=== PATIENT | female | born 1955 | race Caucasian/White ===

== ENCOUNTER 2022-07-28 13:55 | Outpatient (CLI) | payer MEDICARE, SELFPAY ==
[2022-07-28 17:29] LABS: Microalbumin Creatinine Ratio 10 mg/g (0-30); Microalbumin Urine 4 mg/dL
[2022-07-28 17:31] LABS: Albumin* 4.5 g/dL (3.3-5.0)
[2022-07-28 17:32] LABS: Chloride* 108 mmol/L (96-114); Potassium* 5.3 mmol/L (3.6-5.1); Sodium* 143 mmol/L (135-149)
[2022-07-28 17:34] LABS: Aspartate Amino Transferase* 29 U/L (12-35); Bilirubin Total* 0.9 mg/dL (0.1-1.5); Carbon Dioxide* 29 mmol/L (20-32); Cholesterol* 199 mg/dL (90-199); Creatinine* 0.6 mg/dL (0.5-1.5); Estimated Glomerular Filt Rate 98 ml/min; Total Protein* 6.9 g/dL (6.0-8.3)
[2022-07-28 17:35] LABS: Alanine Aminotransferase* 28 U/L (4-35); Alkaline Phosphatase* 81 U/L (40-150); Blood Urea Nitrogen* 14 mg/dL (7-30); Calcium* 9.9 mg/dL (8.4-10.6); Glucose* 99 mg/dL (60-115); HDL Cholesterol* 86 mg/dL (>=50); LDL Cholesterol Calculated 81 mg/dL (<100); Triglycerides* 160 mg/dL (40-149)
== END 2022-07-28 13:56 | disposition home or self-care (01) ==
LOC: NFLDREF 13:56
PROVIDERS: PCP Family Medicine; Visit Provider Family Medicine
DX: Z00.00 Encounter for general adult medical examination without abnormal findings (principal); Z01.818 Encounter for other preprocedural examination; E11.9 Type 2 diabetes mellitus without complications; I10 Essential (primary) hypertension; E78.5 Hyperlipidemia, unspecified; G89.29 Other chronic pain; F32.A Depression, unspecified
CPT/HCPCS: 80053; 80061; 82043; 82570

== ENCOUNTER 2022-08-20 12:54 | Outpatient (RCR) | payer MEDICARE, SELFPAY | END 2023-02-05 23:59 | disposition home or self-care (01) | PROVIDERS: PCP Family Medicine; Visit Provider Orthopaedic Surgery Sports Medicine | DX: M17.0 Bilateral primary osteoarthritis of knee (principal); Z51.89 Encounter for other specified aftercare | CPT/HCPCS: 97110; 97161 ==

== ENCOUNTER 2023-07-27 15:10 | Outpatient (CLI) | payer MEDICARE, SELFPAY ==
--- OUTSIDE RECORDS SUMMARY | 2023-07-30 11:05 | XMS_ITS | Clinical Summary ---
Author Name Unknown Organization [facility] Address [place], [place] [address] Care Team Providers Care Supervisor Wound Name Role Phone Lee Grover MD Primary Care Provider [phone] Allergies Active Allergy Reactions Criticality Noted Date Comments Morphine Rash 02/22/2016 Bupropion Hcl Anxiety 02/22/2016 Medications Medication Sig Dispensed Refills Start Date End Date Status atorvastatin (LIPITOR) 40 mg tablet Take 40 mg by mouth at bedtime. 0 Active lisinopril (PRINIVIL; ZESTRIL) 5 mg tablet Take 5 mg by mouth once daily. 0 Active metFORMIN (GLUCOPHAGE) 500 mg tablet Take 500 mg by mouth 2 times daily with meals. 0 Active metoprolol (LOPRESSOR) 50 mg tablet Take 50 mg by mouth 2 times daily. 0 Active acetaminophen (TYLENOL EXTRA STRGTH) 500 mg tablet Take 500 mg by mouth every 6 hours if needed for Pain. Max acetaminophen dose: 4000mg in 24 hrs. 0 Active apixaban (ELIQUIS) 5 mg tablet Take 5 mg by mouth 2 times daily. 0 Active amitriptyline (ELAVIL) 50 mg tablet Take 75 mg by mouth at bedtime. 0 Active venlafaxine (EFFEXOR XR) 150 mg Extended-Release capsule Take 150 mg by mouth once daily with a meal. 0 08/01/2022 Active oxyCODONE (ROXICODONE) 5 mg immediate release tablet Take 20 mg by mouth 4 times daily if needed for Pain. 0 Active gabapentin (NEURONTIN) 600 mg tablet Take 1,200 mg by mouth two times daily. 0 Active venlafaxine (EFFEXOR) 75 mg tablet Take 75 mg by mouth every morning. Take with the 150 mg for a total of 225 0 Active celecoxib (CeleBREX) 200 mg capsule Take 200 mg by mouth once daily. 0 Active Lactobacillus Acidophilus (Acidophilus) cap Take 1 Capsule by mouth once daily. 0 Active varenicline (Chantix) 1 mg tablet Take 1 mg by mouth two times daily with meals. 0 Active Active Problems Problem Noted Date Diagnosed Date Primary osteoarthritis of left knee 12/24/2022 Primary osteoarthritis of right knee 11/11/2022 Fracture of neck of right femur 09/10/2022 Postoperative fever 02/24/2016 Diabetes mellitus, type 2 02/22/2014 Hypertension 02/22/2014 Hyperlipidemia 02/22/2014 Chronic pain 02/22/2014 Brugada syndrome 02/22/2014 Lumbar spinal stenosis 02/22/2014 Depression 02/22/2014 Family History Medical History Relation Name Comments Alcoholism Father Heart Disease Father Other Father bleeding tende ncies per H&P Other Son aneurysm Relation Name Status Comments Father Son Social History Tobacco Use Types Packs/Day Years Used Date Smoking Tobacco: Former Cigarettes Q uit: 06/19/2012 Smokeless Tobacco: Never Tobacco Cessation:Counseling Given: Not Answered Alcohol Use Standard Drinks/Week Comments No 0 (1 standard drink = 0.6 oz pur e alcohol) Social Connections Answer Date Recorded Frequency of Communication with Friends and Fami ly Not on file 10/28/2022 Sex and Gender Information Value Date Recorded Sex Assigned at Not on file Gender Identity Not on file Sexual Orientation Not on file Obstetrics History Last Filed Vital Signs Vital Sign Reading Time Taken Comments Blood Pressure 95/56 12/26/2022 8:33 AM CDT Pulse 96 12/26/2022 8:25 AM CDT Temperature 37.3 ??C (99.1 ??F) 12/26/2022 8:25 AM CD T Respiratory Rate 18 12/26/2022 8:25 AM CDT Oxygen Saturation 95% 12/26/2022 8:25 AM CDT Inhaled Oxygen Concentration - - Weight 92.3 kg (203 lb 6.4 oz) 12/25/2022 1:45 P M CDT Height 177.8 cm (5' 10) 12/25/2022 1:45 PM CDT Body Mass Index 29.18 12/25/2022 1:45 PM CDT Plan of Treatment Health Maintenance Due Date Last Done Comments Pneumococcal series for age 65+ (1 of 2 - PCV) 1961 Tdap 1966 Depression screening for age 12+ 1967 BMI (ht and wt on same day) for age 18+ 1973 Hepatitis C screening for age 18-79 1973 Tetanus booster 1975 Colonoscopy through age 75 2000 Lipids for age 45-75 2000 Mammogram for age 45-75 2000 Zoster (shingles) series for age 50+ (1 of 2) 2005 DEXA/DXA scan for age 65+ 2020 Medicare Wellness for age 65+ 2020 COVID-19 vaccine series ( season) 2023 07/04/2021, 10/17/2020, 09/19/2020 Influenza for age 65+ 03/20/2023 Medical Devices Implanted Type Area [employer] Device Identifier Shelf Expiration Date Model / Serial / Lot [id number] 188bone 30cc Mtf Chips Canclls Pouch [[id number]] Implanted:Qty: 1 on 02/22/[address] [facility] Explanted:(Quant ity not on file) Spine Musculoskeletal Transplant 05/06/2016 [id number]# / [id number] / [id number] 141bone 15cc Mtf Chips Canclls Jar [[id number]] Implanted:Qty: 1 on 02/22/[address] [facility] Explanted:(Quant ity not on file) Spine Musculoskeletal Transplant 07/01/2015 809856# / [id number] / [id number] 098bone 60cc Mtf Crushed Canclls [[id number]] Implanted:Qty: 1 on 02/22/[address] [facility] Spine Musculoskeletal Transplant 06/26/2016 303679# / [id number] / [id number] 132bone 60cc Mtf Crushed Canclls [902326] Implanted:Qty: 1 on 02/22/[address] [facility] Explanted:at [facility] (Quantity not on file) Spine Musculoskeletal Transplant 07/21/2016 866662# / [id number] / Screw Lock 5.5mm Solera Break Off - [id number] Implanted:Qty: 8 on 02/22/[address] [facility] Spine Medtronic Spine/Ortho [id number]# / / Screw Polyaxial 6.5x45 Co Cr Solera - [id number] Implanted:Qty: 1 on 02/22/[address] [facility] Spine Medtronic Spine/Ortho [id number] 45# / / Mateus 5.1y172zp Cvd Titnm Solera - [id number] Implanted:Qty: 1 on 02/22/[address] [facility] Spine Medtronic Spine/Ortho [id number] 0# / / Mateus 5.3w156ud Cvd Titnm Solera - [id number] Implanted:Qty: 1 on 02/22/[address] [facility] Spine Medtronic Spine/Ortho [id number] 0# / / [id number] 105bone 60cc Mtf Crushed Canclls [005668] Implanted:Qty: 1 on 02/22/2016 by Rajendra Barriga MD at [facility] Explanted:at [facility] (Quantity not on file) N/A: Spine Musculoskeletal Transplant 10/31/2018 429991# / [id number] / Spacer Lmbr Lg 14mm 12deg Perimeter Alif Peek - [id number] Implanted:Qty: 1 on 02/22/2016 by Rajendra Barriga MD at [facility] N/A: Spine Medtronic Spine/Ortho [id number]# / / 21CB Set Screw Lmbr Ant 5.5mm Solera Break Off - [id number] Implanted:Qty: 5 on 02/22/2016 by Rajendra Barriga MD at [facility] N/A: Spine Medtronic Spine/Ortho [id number]# / / Screw Lmbr Post 7.5x45mm Solera 5.5/6 Va Cocr - [id number] Implanted:Qty: 3 on 02/22/2016 by Rajendra Barriga MD at [facility] N/A: Spine Medtronic Spine/Ortho [id number] 45# / / Mateus Lmbr 50x5.5mm Solera 5.5/6cvd Titnm - [id number] Implanted:Qty: 1 on 02/22/2016 by Rajendra Barriga MD at [facility] N/A: Spine Medtronic Spine/Ortho [id number] 0# / / Mateus Lmbr 110x5.5mm Solera 5.5/6 Cvd Titnm - [id number] Implanted:Qty: 1 on 02/22/2016 by Rajendra Barriga MD at [facility] N/A: Spine Medtronic Spine/Ortho [id number] 0# / / [id number] 153bone 30cc Mtf Crushed Canclls Pouch [[id number]] Implanted:Qty: 1 on 02/22/2016 by Rajendra Barriga MD at [facility] Explanted:at [facility] (Quantity not on file) N/A: Spine Musculoskeletal Transplant 10/19/2018 999846# / [id number] / Screw Sm Joint 6.5x90mm Asnisiii Cnnltd 20mm Thread St-St - [id number] Implanted:Qty: 2 on 09/10/2022 by Lawrence Arita MD at [facility] Right: Hip [employer] [id number] / / Screw Sm Joint 6.5x85mm Asnisiii Cnnltd 20mm Thread St-St - [id number] Implanted:Qty: 1 on 09/10/2022 by Lawrence Arita MD at [facility] Right: Hip [employer] [id number] / / Baseplate Tib Univ Sz 6 Triathlon Keeled Ingrowth Pors Tritan - [id number] Implanted:Qty: 1 on 11/12/2022 by Lawrence Arita MD at [facility] Right: Knee [employer] 09/07/2027 5536-B-60 0 / / [id number] Insert Tib Sz 6 9mm Knee X3 Condylar Stabilizing Triathlon - [id number] Implanted:Qty: 1 on 11/12/2022 by Lawrence Arita MD at [facility] Right: Knee [employer] 04/12/2025 5531-G-60 9-E / / [id number] Patella S39x11 Triathlon Tritanium Symmetrical Metal Backed - [id number] Implanted:Qty: 1 on 11/12/2022 by Lawrence Arita MD at [facility] Right: Knee [employer] 09/25/2027 5556-L-39 1 / / [id number] Fem Rt 6 Triathlon Beaded W/Pa - [id number] Implanted:Qty: 1 on 11/12/2022 by Lawrence Arita MD at [facility] Right: Knee [employer] 09/24/2027 5517-F-60 2 / / [id number] Baseplate Tib Univ Sz 6 Triathlon Keeled Ingrowth Pors Tritan - [id number] Implanted:Qty: 1 on 12/25/2022 by Lawrence Arita MD at [facility] Left: Knee [employer] 10/13/2027 5536-B-60 0 / / [id number] Insert Tib Sz 6 9mm Knee X3 Condylar Stabilizing Triathlon - [id number] Implanted:Qty: 1 on 12/25/2022 by Lawrence Arita MD at [facility] Left: Knee [employer] 09/22/2027 5531-G-60 9-E / / [id number] Patella S36x10 Triathlon Tritanium Symmetrical Metal Backed - [id number] Implanted:Qty: 1 on 12/25/2022 by Lawrence Arita MD at [facility] Left: Knee [employer] 09/07/2027 5556-L-36 0 / / [id number] Fem Lt 5 Triathlon Beaded W/Pa - [id number] Implanted:Qty: 1 on 12/25/2022 by Lawrence Arita MD at [facility] Left: Knee [employer] 11/04/2027 5517-F-50 1 / / [id number] Explanted Type Area [employer] Device Identifier Shelf Expiration Date Model / Serial / Lot Screw Sm Joint 6.5x90mm Asnisiii Cnnltd [address]mm [address]-St - [id number] Explanted:Qty: 1 on 09/10/2022 by Lawrence Arita MD at [facility] Right: Hip [employer] [id number] / / Pin Bone Fix 3.5vwk092ke Strl - [id number] Explanted:Qty: 1 on 11/12/2022 by Lawrence Arita MD at [facility] Right: Knee Jacqueline F?rsat Bu F?rsat 10/24/2024 [id number] / / [id number] Pin Bone Fix 3.7mwc897oa - [id number] Explanted:Qty: 1 on 11/12/2022 by Lawrence Arita MD at [facility] Right: Knee Troy F?rsat Bu F?rsat 09/25/2027 122327 / / [id number] Pin Bone Fix 3.4thg889pq Strl - [id number] Explanted:Qty: 1 on 12/25/2022 at [facility] Left: Knee Jacqueline F?rsat Bu F?rsat 01/10/2025 242190 / / [id number] Pin Bone Fix 3.8dsp991rl - [id number] Explanted:Qty: 1 on 12/25/2022 at [facility] Left: Knee Troy F?rsat Bu F?rsat 11/22/2027 235725 / / [id number] Advance Directives Latest Code Status on File Code Status Date Activated Date Inactivated Comments Full Code 12/25/2022 10:18 AM 12/26/2022 1:13 PM Question Answer Comments Code Status Discussion: Not Discussed Code Status History Code Status Date Activated Date Inactivated Comments Full Code 11/12/2022 6:31 AM 11/13/2022 6:14 PM Question Answer Comments Code Status Discussion: Not Discussed Full Code 09/09/2022 11:14 PM 09/12/2022 5:43 PM Question Answer Comments Code Status Discussion: Reviewed Preferences Full Code 02/22/2016 10:16 PM 02/26/2016 6:50 PM Full Code 02/22/2016 11:22 AM 02/22/2016 10:16 PM Care Teams Supervisor Wound Relationship Specialty Start Date End Date Lee Grover MD PCP - General Family Practice 02/20/14
--- OUTSIDE RECORDS SUMMARY | 2023-07-30 11:05 | XMS_ITS | Clinical Summary ---
Author Name Unknown Organization [facility] Address [address] [place] [address] Care Team Providers Care Small Business Banking Officer Name Role Phone Elsewhere, Pcp Primary Care Provider Unavailabl e Source Comments Patient records contain information from all sites at [facility]. For routine questions regarding patient records, call [phone] during business hours, M-F 8:00 AM - 5:00 PM Central Time. Record requests for emergency care only can be directed to [phone] at any time.[facility] Allergies Active Allergy Reactions Criticality Noted Date Comments Bupropion Anxiety 10/02/2010 peeling creepy inside skin Morphine Rash 08/20/2017 Medications Medication Sig Dispensed Refills Start Date End Date Status acetaminophen (TYLENOL) 500 mg tablet Take 2 tablets by mouth 3 (three) times a day. 0 06/05/2015 Active amitriptyline (ELAVIL) 25 mg tablet Take 1 tablet by mouth at bedtime. 0 06/05/2015 Active gabapentin (NEURONTIN) 600 mg tablet Take 2 tablets by mouth 3 (three) times a day. 0 06/05/2015 Active atorvastatin (LIPITOR) 40 mg tablet Take 1 tablet by mouth daily. 0 06/05/2015 Active lisinopril (PRINIVIL,ZESTRIL) 5 mg tablet Take 1 tablet by mouth daily. 0 06/05/2015 Active metFORMIN (GLUCOPHAGE) 500 mg tablet Take 1 tablet by mouth 2 (two) times a day. 0 10/02/2010 Active metoprolol tartrate (LOPRESSOR) 50 mg tablet Take 1 tablet by mouth 2 (two) times a day. 0 10/02/2010 Active Eliquis 5 mg tablet Take 5 mg by mouth 2 (two) times a day. 0 09/09/2022 Active venlafaxine XR (EFFEXOR-XR) 150 mg 24 hr capsule Take 150 mg by mouth daily with breakfast. Total of 225mg 0 07/20/2019 Active venlafaxine XR (EFFEXOR-XR) 75 mg 24 hr capsule Take 75 mg by mouth daily with breakfast. 0 10/25/2022 Active celecoxib (CeleBREX) 200 mg capsule Take 200 mg by mouth daily. 0 Active LACTOBACILLUS ACIDOPHILUS ORAL Take 1 capsule by mouth daily. 0 Active Active Problems Problem Noted Date Diagnosed Date Presence Of Automatic (Impla ntable) Cardiac Defibrillator With Synchronous Cardiac Pacemaker (ICD And AICD) 11/04/202210/18 Cellulitis 11/04/2022 11/04/2022 Dysphagia 11/04/2022 11/04/2022 Gastroesophageal Reflux Disease 11/04/2022 11/04/2022 Insomnia 11/04/2022 11/04/2022 Loss Hearing Right 11/04/2022 11/04/2022 Obesity Unspecified 11/04/2022 11/04/2022 Primary Osteoarthritis Knee Bilateral 11/04/2022 11/04/2022 Pain Hip Left 11/04/2022 11/04/2022 Pain Knee Right 11/04/2022 11/04/2022 Pain Low Back Chronic 11/04/2022 11/04/2022 Pneumonia 11/04/2022 11/04/2022 Sprain Knee Anterior Cruciate Ligament Initial R ight 11/04/2022 11/04/2022 Stress Incontinence Female Male 11/04/2022 11/04/2022 Fracture Femur Neck Closed Initial Right 023 11/04/2022 Tachycardia Ventricular Nonsustained 06/22/2017 Overview: Brugada syndrome Fever Postprocedural 02/24/2016 11/04/2022 Postlaminectomy Syndrome Lumbar 05/09/2015 11/04/2022 Depression 02/22/2014 11/04/2022 Diabetes Mellitus Type 2 02/22/2014 023 Hyperlipidemia 02/22/2014 11/04/2022 Hypertension 02/22/2014 11/04/2022 Spinal Stenosis Lumbar Regio n Without Neurogenic Claudication 02/22/2014 11/04/2022 Brugada Syndrome 11/15/2013 11/04/2022 Encounters Date Type Department Care Team Description 07/06/2023 2:45 PM ROUTE JUMPER - 07/06/2023 11:59 PM ROUTE JUMPER Hospital Encounter Department of Cardiovascular Diseases in [place], [place] [address] [address] Paramjit Neely M.D. Aftercare Cardiac Defibrillator Discharge Disposition: Home or Self Care 07/06/2023 Orders Only Department of Cardiovascular Diseases in [place], [place] [address] [place] [address] Ying Wright M.D. Aftercare Cardiac Defibrillator (Primary Dx) 06/10/2023 4:00 AM ROUTE JUMPER - 06/10/2023 11:59 PM ROUTE JUMPER Hospital Encounter Department of Cardiovascular Diseases in [place], [place] [address] [place] [address] Preet Daugherty M.D., M.P.H. Aftercare Cardiac Defibrillator Discharge Disposition: Home or Self Care from Last 3 Months Immunizations Name Administration Dates Next Due HZV (ZOSTAVAX) 12/18/2015 Influenza Split 04/16/2015 Influenza high dose QV(65 ye ars or older) (PF) 07/31/2022,06/24/2021,05/09/2020 Influenza, Injectable, Quadrivalent 03/27/2016 Influenza, Seasonal, Injectable 05/10/2013 PCV13 05/09/2020,10/01/2017 PPSV23 06/24/2021,01/02/2014 RZV (SHINGRIX) 11/18/2017,08/31/2017 SARS-COV-2 (COVID-19) - MODERNA 07/04/2021 Tdap 01/02/2014 influenza high dose (65 year s or older) (PF) 04/16/2015 influenza vaccine quad (FLUZONE/FLUARIX) (6 months and older)(PF) 06/20/2019,04/19/2019,05/10/2018,2016,03/27/2016,04/16/2015,05/10/2013 Family History Medical History Relation Name Comments Clotting disorder Daughter Mary Ellen Pickard Alcohol abuse Father [employer] Prevalent on b oth sides of family Dementia Father [employer] Lewy Body Hypertension Father [employer]n [employer] Parkinson disease Father [employer] Colon cancer Maternal Grandfather Jamil Blas Arthritis Mother [employer] Hyperlipidemia Mother Madison Labs Migraines Mother [employer] Stress related Other cancer Mother [employer] Polycythemia ve ra ADD Son French Jones Relation Name Status Comments Wilber Pickard Father [employer] Maternal Grandfather Jamil Blas Mother [employer] Son French Jones Social History Tobacco Use Types Packs/Day Years Used Date Smoking Tobacco: Former Cigarettes 0.5 52 0 07/20/1970 - 06/19/2022 Smokeless Tobacco: Never Tobacco Cessation:Counseling Given: Not Answered Alcohol Use Standard Drinks/Week Comments Not Currently 0 (1 standard drink = 0.6 oz pur e alcohol) Humiliation, Afraid, Rape, and Kick questionnair e Answer Date Recorded Within the last year, have y ou been afraid of your partner or ex-partner? No 12/12/2022 Within the last year, have y ou been humiliated or emotionally abused in other ways by your partner or ex-partner? No Within the last year, have y ou been kicked, hit, slapped, or otherwise physically hurt by your partner or ex-partner? No 12/12/2022 Within the last year, have y ou been raped or forced to have any kind of sexual activity by your partner or ex-partner? No 12/12/2022 Social Connection and Isolat ion Panel [NHANES] Answer Date Recorded In a typical week, how many times do you talk on the phone with family, friends, or neighbors? More than three times a week 09/21/2022 How often do you get togethe r with friends or relatives? Once a week 09/21/2022 How often do you attend chur or spiritism services? Never 09/21/2022 Do you belong to any clubs o r organizations such as scientology groups, unions, fraternal or athletic groups, or school groups? No 09/21/2022 How often do you attend meet ings of the clubs or organizations you belong to? Never 09/21/2022 Are you , , di vorced, , never , or living with a partner? 09/21/2022 AUDIT-C Answer Date Recorded Q1: How often do you have a drink containing alc ohol? Never 09/21/2022 Average Number of Drinks Not on file 023 Frequency of Binge Drinking Not on file 11/2022 Overall Financial Resource Strain (CARDIA) Answe r Date Recorded How hard is it for you to pa y for the very basics like food, housing, medical care, and heating? Not very hard 12/12/2022 PHQ-2 Answer Date Recorded PHQ-2 Score 2 11/01/2022 [facility] - Occupational Stress Questionnaire Answer Date Recorded Do you feel stress - tense, restless, nervous, or anxious, or unable to sleep at night because your mind is troubled all the time - these days? Only a little 09/21/2022 Exercise Vital Sign Answer Date Recorde d On average, how many days pe r week do you engage in moderate to strenuous exercise (like a brisk walk)? 0 days 09/21/2022 On average, how many minutes do you engage in exercise at this level? 0 min 09/21/2022 Hunger Vital Sign Answer Date Recorded Within the past 12 months, y ou worried that your food would run out before you got the money to buy more. Never true 12/13/19 23 Within the past 12 months, t he food you bought just didn't last and you didn't have money to get more. Never true 12/12/2022 PRAPARE - Transportation Answer Date Re corded In the past 12 months, has l ack of transportation kept you from medical appointments or from getting medications? No 11/18 In the past 12 months, has l ack of transportation kept you from meetings, work, or from getting things needed for daily living? No 12/12/2022 Nutrition Answer Date Recorded Nutrition: EVOO Fat Source No 09/21 On average, how many serving s of fruits and vegetables do you eat per day (serving size is equal to 1 cup or approximately the size of a tennis ball)? 2-3 09/21/2022 Dental Answer Date Recorded Dental: Regular Dentist Yes 09/22/19 Employment Answer Date Recorded Employment status Retired 09/21/2022 Housing Stability Answer Date Recorded What is your living situation today? I [address] a [address] [address] to live 12/12/2022 Education Answer Date Recorded What is the highest level of school you have completed or the highest degree you have received? Associate degree: occupational, technical, or vocational program 09/21/2022 Sex and Gender Information Value Date Recorded Sex Assigned at Female 09/21/2022 2:32 PM ROUTE JUMPER Gender Identity Female 03/25/2018 1:18 PM CDT Sexual Orientation Straight 03/25/2018 1: 18 PM CDT Last Filed Vital Signs Vital Sign Reading Time Taken Comments Blood Pressure 131/74 02/01/2023 3:15 PM CDT Pulse 84 02/01/2023 3:15 PM CDT Temperature 36 ??C (96.8 ??F) 02/01/2023 3:15 PM CDT Respiratory Rate 16 02/01/2023 3:15 PM CDT Oxygen Saturation 98% 06/20/2019 11:24 AM ROUTE JUMPER Inhaled Oxygen Concentration - - Weight 88.7 kg (195 lb 8.8 oz) 02/01/2023 3:15 P M CDT Height 178.6 cm (5' 10.32) 11/04/2022 3:57 PM C DT Body Mass Index 27.81 11/04/2022 3:57 PM CDT Plan of Treatment Health Maintenance Due Date Last Done Comments Bone Density Scan (Osteoporo sis Screen) 1955 CT Colonography 1955 Cologuard 1955 Diabetic Office Visit with F oot Exam 1955 Dilated Eye Exam 1955 FIT 1955 Hepatitis C Screening 1955 Lung Cancer Screening 1955 Urine Albumin 1955 Hemoglobin A1C 08/04/2014 02/01/2014 (Perf ormed elsewhere) Hepatitis B Vaccines (1 of 3 - Risk 3-dose series) 2015 Mammogram 01/02/2016 01/01/2015 (Perf ormed elsewhere), 03/01/2014 (Performed elsewhere), 10/03/2010 Lipid (Cholesterol) Screening 02/08/2019 (Performed elsewhere) COVID-19 Vaccine (2022-2 4 season) 2023 07/04/2021, 10/17/2020, 09/19/2020 Influenza Vaccine (#1) 2023 , 06/24/2021, 05/09/2020, Additional history exists Creatinine Level (Kidney Fun ction Test) 12/17/2023 12/16/2022, 09/11/2022, 09/09/2022, Additional history exists Potassium Level 12/17/2023 12/16/2022, 08/21, 09/09/2022, Additional history exists Sodium Level 12/17/2023 12/16/2022, 08/21, 09/09/2022, Additional history exists DTaP,Tdap,and Td Vaccines (2 - Td or Tdap) 01/03/2024 01/02/2014 Office Visit for Blood Press ure Check / Re-check 02/02/2024 02/01/2023 Colonoscopy 04/05/2024 04/05/2014 (Perf ormed elsewhere) Colorectal Cancer Screening 04/05/2024 Zoster Vaccines Completed 11/18/2017, 08/20, 12/18/2015 Pneumococcal vaccine (65+ years) Completed 06/24/2021, 05/09/2020, 10/01/2017, Additional history exists Depression Screening (Annual PHQ-2) Completed 11/04/2022, 11/01/2022 Fall Risk Screen (Annual) Completed 11/04/2022 Medical Devices Implanted Type Area Protective Signal Installer Device Identifier Shelf Expiration Date Model / Serial / Lot Lead Guidant Mercedes [id number] Implanted:10/2008 by Fareed Alvarez M.D. (Quantity not on file) Cardiac Lead Other/Legacy - See Implant Description Guidant [id number] / [id number] / Description:LEAD Guidant Cor p [id number] Flextend Conversions - Default Historical Implant Device Implanted:12/2013 (Quantity not on file) Hip Implant Description:Device Status Te xt - Hip Joint. artificial left hip. Icd Mike Angel Dr Df1 - [id number] - [id number] Implanted:Qty : 1 on 06/20/2019 by Fareed Alvarez M.D. at [facility] Implant Cardiac Defibrillator [employer] 02/27/2020 [id number] / [id number] / Knee Implant-2022 Implanted: by Lawrence Arita M.D. (Quantity not on file) Knee Implant Right: Knee Jacqueline TRIATHLON / / Knee Implant- 023 Implanted:02/2023 by Lawrence Arita M.D. (Quantity not on file) Knee Implant Left: Knee Bagley TRIATHLON / / Explanted Type Area Protective Signal Installer Device Identifier Shelf Expiration Date Model / Serial / Lot Bs E110 [id number] [id number] Implanted:10/2008 (Quantity not on file) Explanted:Qty : 1 on 06/20/2019 by Fareed Alvarez M.D. at [facility] Implant Cardiac Defibrillator [employer] E110 TELIGEN 100 / [id number] / Procedures Procedure Name Priority Date/Time Associated Diagnosis Comments ICD DUAL CHAMBER INTERROGATION WITH PROGRAMMING Routine 07/06/2023 3:19 PM ROUTE JUMPER Aftercare Cardiac Defibrillator ICD REMOTE FOLLOW UP Routine 06/15/2023 12:46 PM ROUTE JUMPER Aftercare Cardiac Defibrillator from Last 3 Months Results * ICD DUAL CHAMBER INTERROGATION WITH PROGRAMMING (07/06/2023 3:19 PM ROUTE JUMPER) Only the most recent of2 resultswithin the time period is included. Date Time Interrogation Session [id number] [facility] Implantable Pulse Generator Protective Signal Installer Unadilla Episona [facility] Implantable Pulse Generator Model D153 DYNAGEN [facility] Implantable Pulse Generator Serial Number [id number] [facility] Type Interrogation Session In Clinic [facility] Clinic Name [facility] Anchor [facility] Implantable Pulse Generator Type Defibrillator [facility] Implantable Pulse Generator Implant Date [id number] [facility] Implantable Lead Protective Signal Installer Guidant [facility] Implantable Lead Model 0185 Endotak Henefer G [facility] Implantable Lead Serial Number [id number] [facility] Implantable Lead Implant Date 20080920 [facility] Implantable Lead Polarity Type Tripolar Lead [facility] Implantable Lead Location Detail 1 Endocardial [facility] Implantable Lead Special Function Lead length: 64 cm [facility] Implantable Lead Location Right Ventricle [facility] Implantable Lead Protective Signal Installer Guidant [facility] Implantable Lead Model 4087 Flextend [facility] Implantable Lead Serial Number [id number] [facility] Implantable Lead Implant Date [id number] [facility] Implantable Lead Polarity Type Bipolar Lead [facility] Implantable Lead Location Detail 1 Endocardial [facility] Implantable Lead Special Function Lead length: 52 cm [facility] Implantable Lead Location Right Atrium [facility] Hernandez Setting Mode (NBG Code) DDD [facility] Hernandez Setting Lower Rate Limit 50 {beats}/ min [facility] Hernandez Setting Maximum Tracking Rate 100 {beats}/ min [facility] Hernandez Setting Maximum Sensor Rate 100 {beats}/ min [facility] Hernandez Setting [place] Delay Low 300.0 ms [facility] Hernandez Setting PAV Delay Low 300.0 ms [facility] Hernandez Setting PAV Delay High 200.0 ms [facility] Hernandez Setting [place] Delay High 200.0 ms [facility] Hernandez Setting AT Mode Switch Rate 170 {beats}/ min [facility] Hernandez Setting AT Mode Switch Mode DDIR [facility] Lead Channel Setting Sensing Polarity Bipolar [facility] Lead Channel Setting Sensing Sensitivity 0.7 mV [facility] Lead Channel Setting Sensing Adaptation Mode Adaptive [facility] Lead Channel Setting Sensing Polarity Bipolar [facility] Lead Channel Setting Sensing Sensitivity 0.4 mV [facility] Lead Channel Setting Sensing Adaptation Mode Adaptive [facility] Lead Channel Setting Pacing Polarity Bipolar [facility] Lead Channel Setting Pacing Pulse Width 0.4 ms [facility] Lead Channel Setting Pacing Amplitude 2.8 V [facility] Lead Channel Setting Pacing Capture Mode Fixed Pacing [facility] Lead Channel Setting Pacing Polarity Bipolar [facility] Lead Channel Setting Pacing Pulse Width 0.4 ms [facility] Lead Channel Setting Pacing Amplitude 2.0 V [facility] Lead Channel Setting Pacing Capture Mode Fixed Pacing [facility] Zone Setting Type Category VF [facility] Zone Setting Detection Interval 273.0 ms [facility] Zone Setting Type Category VT [facility] Zone Setting Detection Interval 353.0 ms [facility] Zone Setting Type Category VT [facility] Lead Channel Impedance Value 516.0 ohm [facility] Lead Channel Sensing Intrinsic Amplitude 4.2 mV [facility] Lead Channel Pacing Threshold Amplitude 1.4 V [facility] Lead Channel Pacing Threshold Pulse Width 0.4 ms [facility] Lead Channel Impedance Value 434.0 ohm [facility] Lead Channel Sensing Intrinsic Amplitude 14.9 mV [facility] Lead Channel Pacing Threshold Amplitude 1.0 V [facility] Lead Channel Pacing Threshold Pulse Width 0.4 ms [facility] Battery Date Time of Measurements [id number] [facility] Battery Remaining Longevity 126 mo [facility] Capacitor Charge Type Reformation [facility] Capacitor Charge Time 10.80 s [facility] Capacitor Charge Type Shock [facility] Capacitor Charge Time 0 s [facility] Capacitor Charge Energy 0 J [facility] Therapy Statistic Total Shocks Delivered 0 [facility] Therapy Statistic Total Shocks Aborted 0 [facility] Therapy Statistic Total ATP Delivered 0 [facility] Therapy Statistic Total Date Time End [facility] Therapy Statistic Recent Shocks Delivered 0 [facility] Therapy Statistic Recent Shocks Aborted 0 [facility] Therapy Statistic Recent ATP Delivered 0 [facility] Therapy Statistic Recent Date Time End F[facility] Episode Statistic Total Count 0 [facility] Episode Statistic Type Category [place] [facility] Episode Statistic Vendor Type Category NSVT [facility] Episode Statistic Total Count 0 [facility] Episode Statistic Type Category VF [facility] Episode Statistic Vendor Type Category VF [facility] Episode Statistic Total Count 0 [facility] Episode Statistic Type Category VF_[place]_MONITOR [facility] Episode Statistic Total Date Time End [facility] Episode Statistic Total Date Time End [facility] Episode Statistic Total Date Time End [facility] Episode Statistic Recent Count 0 [facility] Episode Statistic Type Category [place] [facility] Episode Statistic Vendor Type Category NSVT [facility] Episode Statistic Recent Count 0 [facility] Episode Statistic Type Category VF F[facility] Episode Statistic Vendor Type Category VF [facility] Episode Statistic Recent Count 0 [facility] Episode Statistic Type Category VF_[place]_MONITOR [facility] Episode Statistic Recent Date Time End [facility] Episode Statistic Recent Date Time End [facility] Episode Statistic Recent Date Time End [facility] Anatomical Region Laterality Modality Other 07/06/2023 3:02 PM ROUTE JUMPER Narrative 07/14/2023 1:38 PM ROUTE JUMPER PURPOSE OF VISIT: Routine annual ICD evaluation performed in the [facility]. PRESENTING RHYTHM: /VS @ 82 bpm UNDERLYING RHYTHM: Sinus rhythm @ 82 bpm. ATRIAL ARRHYTHMIAS: None detected. VENTRICULAR ARRHYTHMIAS: None detected. SUMMARY: Slight increase in atrial thresholds consistent with past testing. All device function appears normal. The left pectoral incision is well healed. Battery Longevity: Expected battery longevity trends reviewed and stable/consistent with device settings and use. PROGRAMMING CHANGES: Atrial amplitude increased to 2.8V. EDUCATION: Patient is ready to learn with no apparent learning barriers. ?? I explained the interrogation findings and follow-up plan; patient asked appropriate questions and expressed understanding. FOLLOW UP: Next routine follow-up will be in 2 months via remote transmission. DEVICE RN: Deedee Mane RN, CCDS This patient underwent device interrogation. I agree that the device interrogation was medically indicated to provide appropriate care and continue routine device interrogations as indicated. Paramjit Neely M.D. CV IMPLANTABLE CARD IAC DEVICE from Last 3 Months Advance Directives For more information, please contact: [phone] Documents on File Type Date Recorded Patient Processing Archivist Expl anation Advance Directives 02/22/2014 12:00 AM Sidra goins document. See document viewer. Care Teams Small Business Banking Officer Relationship Specialty Start Date End Date Elsewhere, Pcp PCP - General Internal Medicine 11/04/22
--- OUTSIDE RECORDS SUMMARY | 2023-07-30 11:06 | XMS_ITS | Encounter Summary ---
Author Name Unknown Organization [facility] Address [address] [place] [address] Care Team Providers Care Medicare Biller Name Role Phone Elsewhere, Pcp Primary Care Provider Unavailabl e Reason for Referral * Outpatient (Routine) - Closed Specialty Diagnoses / Procedures Referred By Contac t Referred To Contact Diagnoses Fracture Femur Midcervical Nondisplaced Closed Subsequent With Routine Healing Right Procedures DX Hip And Pelvis Right 2-3 Views Sarah Clark P.A.-C., P.A. [address] [phone] [facility] Region Referral ID Status Reason Start Date Expiration Date Visits Re quested Visits Authorized [id number] Closed 03/17/2023 03/16/2024 1 1 * Outpatient (Routine) - Authorized Specialty Diagnoses / Procedures Referred By Contac t Referred To Contact Orthopedic Surgery Sarah Clark P.A.-C., P.A. [address] [phone] [facility] Region Referral ID Status Reason Start Date Expiration Date V isits Requested Visits Authorized [id number] Authorized 03/17/2023 03/16/2026 1 1 * Outpatient (Routine) - Authorized Specialty Diagnoses / Procedures Referred By Inderjit brown Referred To Contact Diagnoses Arthroplasty Total Knee Replacement Status Post Left Arthroplasty Total Knee Replacement Status Post Right Procedures DX Knee Bilateral Standing 3 Views Sarah Clark P.A.-C., P.A. [address] [phone] [facility] Region Referral ID Status Reason Start Date Expiration Date V isits Requested Visits Authorized [id number] Authorized 03/17/2023 03/16/2024 1 1 Reason for Visit * Reason Comments Post-op Follow-up Arthroplasty Pain Post-op Follow-up * Outpatient (Routine) - Closed Specialty Diagnoses / Procedures Referred By Inderjit brown Referred To Contact Orthopedic Surgery Lawrence Arita M.D. [address] [phone] [facility] Region Referral ID Status Reason Start Date Expiration Date Visits Re quested Visits Authorized [id number] Closed 10/24/2022 10/23/2025 1 1 Encounter Details Date Type Department Care Team (Late st Contact Info) Description 03/19/2023 1:30 PM CDT Office Visit Department of Orthopedic Surgery in [place], [place] [address] [phone] Sarah Clark P.A.-C., P.A. [address] [phone] Arthroplasty Total Knee Replacement Status Post Left (Primary Dx); Arthroplasty Total Knee Replacement Status Post Right; Fracture Femur Midcervical Nondisplaced Closed Subsequent With Routine Healing Right Social History Tobacco Use Types Packs/Day Years Used Date Smoking Tobacco: Former Cigarettes 0.5 52 0 07/20/1970 - 06/19/2022 Smokeless Tobacco: Never Alcohol Use Standard Drinks/Week Comments Not Currently [...] 09/21/2022 How often do you attend chur ch or yarsanism services? Never 09/21/2022 Do you belong to any clubs o r organizations such as adventism groups, unions, fraternal or athletic groups, or [...] Answer Date Recorded PHQ-2 Score 2 11/01/2022 [facility] - Occupational Stress Questionnaire Answer Date Recorded [...] money to buy more. Never true 12/13/19 Within the past 12 months, t he [...] your living situation today? I have a [facility] place to live 12/12/2022 Education Answer Date Recorded What is the highest level of school you have completed or the highest degree you have received? Associate degree: occupational, technical, or vocational program 09/21/2022 Sex and Gender Information Value Date Recorded Sex Assigned at Female 09/21/2022 2:32 PM [employer] Gender Identity Female 03/25/2018 1:18 PM CDT Sexual Orientation Straight 03/25/2018 1: 18 PM CDT documented as of this encounter Progress Notes * Sarah Clark P.A.-C., P.A. - 03/19/2023 1:30 PM CDT REASON FOR FOLLOW-UP 3 month follow-up of left total knee arthroplasty performed on 12/25/[address] Lawrence Arita. HISTORY OF PRESENT ILLNESS Ms. Rutledge is here for a 3 month follow up of a left total knee arthroplasty. She is doing well.She is able to perform all activities without difficulty. She completed physical therapy and continues to be active. She had her right knee replaced on 11/12/2022. She has been having right hip pain for the past few months. She did not notice this hip pain while she was initially recovering from the knee replacements however now that the knees are feeling better she notices this dull achy pain on the lateral aspect of her hip with sleeping, walking and moving. She is still in physical therapy working on the hip pain. She is using a walking stick due to the hip pain. PHYSICAL EXAM GENERAL: This is a well-nourished, well-developed, 68 y.o. year-old female. She is alert and oriented x3, in no acute distress. She is cooperative and responds appropriately to all questions. MUSCULOSKELETAL: Examination of the left knee reveals range of motion of 0-120 degrees. Incision iswell healed. Ligamentously stable. Mild swelling of the knee joint. She is neurovascularly intact distally. Tenderness to palpation of the right greater trochanter. No pain with hip range of motion. Capillary refill less than 2 seconds. IMAGING Right hip x-rays performed today show reduced and percutaneously fixated right femoral neck fracture with cannulated lag screws. No progressive fracture angulation or displacement. Advanced right hipjoint osteoarthritis similar to prior. Left hip arthroplasty, redemonstrated in stable position. ASSESSMENT/PLAN #1 Arthroplasty Total Knee Replacement Status Post Left Ms. Rutledge is doing well. We will plan on following up with her on an as- needed basis or at her 1 year recheck whichever comes first. We will do the 1 year follow-up for both knees at the same time. The patient is in understanding. All questions were answered to her satisfaction. We would be more than happy to see her back in clinic if she is having any issues or problems. She does not visit the dentist as she has dentures so she does not need to worry about prophylactic antibiotics. I think her right hip pain is secondary to trochanteric bursitis. We have discussed proceeding witha corticosteroid injection or continuing with therapy exercises. She would like to continue with therapy exercises. She has known degenerative changes of the right hip. She is excited that the previously hip ORIF pins are stable without any changes. documented in this encounter Plan of Treatment Scheduled Orders Name Type Priority Associated Diagnoses Orde r Schedule DX Knee Bilateral Standing 3 Views Imaging RAD - Routine (most inpatients and all outpatients) Arthroplasty Total Knee Replacement Status Post Left Arthroplasty Total Knee Replacement Status Post Right Expected: 12/09/2023 (Approximate), Expires: 06/17/2024 Scheduled Referrals Name Type Priority Associated Diagnoses Order Schedule Orthopedic Surgery office visit (clinic) Outpatient Referral Routine Expected: 12/09/2023 (Approximate), Expires: 06/17/2024 documented as of this encounter Results * DX Hip And Pelvis Right 2-3 Views (03/19/2023 1:04 PM CDT) Anatomical Region Laterality Modality Lower Extremity, Pelvis, Hip , Musculoskeletal RST LOS, Musculoskeletal ARZ LOS, Muskuloskeletal FLA LOS Right Digit al Radiography 03/19/2023 1:07 PM CDT Impressions 03/19/2023 1:10 PM CDT Comparison 10/24/2022. Intact ilioischial and iliopectineal lines. Reduced and percutaneous fixated right femoral neck fracture with cannulated lag screws in situ. No progressive fracture angulation or displacement. Advanced right hip joint osteoarthritis similar to prior. Left hip arthroplasty redemonstrated in stable position from prior study. Partial visualization lower lumbar spinal surgical instrumentation. Narrative 03/19/2023 1:10 PM CDT EXAM: DX HIP AND PELVIS RIGHT 2-3 VIEWS Procedure Note Lavell Soto M.D. - 03/19/2023 EXAM: DX HIP AND PELVIS RIGHT 2-3 VIEWS IMPRESSION: Comparison 10/24/2022. Intact ilioischial and iliopectineal lines. Reducedand percutaneous fixated right femoral neck fracture with cannulated lagscrews in situ. No progressive fracture angulation or displacement. Advanced right hip jointosteoarthritis similar to prior. Left hip arthroplasty redemonstrated in stable position from prior study.Partial visualization lower lumbar spinal surgical instrumentation. Sarah Clark P.A.-C., [facility] PROCEDURES documented in this encounter Visit Diagnoses Diagnosis Arthroplasty Total Knee Replacement Status Post Left- Primary Arthroplasty Total Knee Replacement Status Post Right Fracture Femur Midcervical Nondisplaced Closed Subsequent With Routine Healing Right Fracture Femur Midcervical Nondisplaced Closed Subsequent With Routine Healing Right documented in this encounter Care Teams Medicare Biller Relationship Specialty Start Date End Date Elsewhere, Pcp PCP - General Internal Medicine 11/04/22 documented as of this encounter
--- OUTSIDE RECORDS SUMMARY | 2023-07-30 11:06 | XMS_ITS | Encounter Summary ---
Author Name Unknown Organization [facility] Address [address] [place] [address] Care Team Providers Care Steamblaster Name Role Phone Elsewhere, Pcp Primary Care Provider Unavailabl e Encounter Details Date Type Department Care Team (Late st Contact Info) Description 03/16/2023 Clinical Communication Department of Orthopedic Surgery in [place], [place] [address] [phone] Lawrence Arita M.D. [address] [phone] Social History Tobacco Use Types Packs/Day Years [...] often do you attend chur ch or jain services? Never 09/21/2022 Do you belong to any clubs o r organizations such as anglican groups, unions, fraternal or athletic groups, or [...] Answer Date Recorded PHQ-2 Score 2 11/01/2022 [facility] - Occupational Stress Questionnaire Answer Date Recorded [...] your living situation today? I have a [facility] place to live 12/12/2022 Education Answer Date Recorded What is the highest level of school you have completed or the highest degree you have received? Associate degree: occupational, technical, or vocational program 09/21/2022 Sex and Gender Information Value Date Recorded Sex Assigned at Female 09/21/2022 2:32 PM [employer] Gender Identity Female 03/25/2018 1:18 PM CDT Sexual Orientation Straight 03/25/2018 1: 18 PM CDT documented as of this encounter Miscellaneous Notes * Telephone Encounter - Sarah Clark P.A.-C., P.A. - 03/17/2023 12:56 PM CDT R hip xrays added, should arrive early for those. * Telephone Encounter - Sachi Hugo R.N. - 03/16/2023 1:48 PM CDT Called patient and discussed right hip pain. Patient had a right femoral neck fracture with closed reduction internal fixation with percutaneous screw fixation performed by Dr. Arita on 09/10/22. Dr. Arita then replaced her right knee on 11/12/22 and then her left knee on 12/25/22. Patient states she has always had some discomfort in her right hip. Patient states Dr. Arita recommended a right hip x-ray if she was continuing to have pain after the total knee replacements. Patient denies a new injury to her right hip. Patient states she has discomfort and weakness in her right hip. documented in this encounter Plan of Treatment Not on file documented as of this encounter Visit Diagnoses Not on filedocumented in this encounter Care Teams Steamblaster Relationship Specialty Start Date End Date Elsewhere, Pcp PCP - General Internal Medicine 11/04/22 documented as of this encounter
--- OUTSIDE RECORDS SUMMARY | 2023-07-30 11:06 | XMS_ITS | Encounter Summary ---
Author Name Unknown Organization [facility] Address [address] [place] [address] Care Team Providers Care Valet Manager Name Role Phone Elsewhere, Pcp Primary Care Provider Unavailabl e Encounter Details Date Type Department Care Team (Latest Contact Info) Description 03/10/2023 4:00 AM CDT - 03/10/2023 11:59 PM CDT Hospital Encounter Department of Cardiovascular Diseases in [place], [place] [address] [place] [address] Naman Snyder M.D. Aftercare Cardiac Defibrillator Discharge Disposition: Home or Self Care Social History Tobacco Use Types Packs/Day Years [...] How often do you attend chur or mosque services? Never 09/21/2022 Do you belong to any clubs o r organizations such as latter day groups, unions, fraternal or athletic groups, or [...] Answer Date Recorded PHQ-2 Score 2 11/01/2022 [facility] - Occupational Stress Questionnaire Answer Date [...] your living situation today? I have a [facility] place to live 12/12/2022 Education Answer Date Recorded What is the highest level of school you have completed or the highest degree you have received? Associate degree: occupational, technical, or vocational program 09/21/2022 Sex and Gender Information Value Date Recorded Sex Assigned at Female 09/21/2022 2:32 PM [employer]BER [employer] Gender Identity Female 03/25/2018 1:18 PM CDT Sexual Orientation Straight 03/25/2018 1: 18 PM CDT documented as of this encounter Medications at Time of Discharge Medication Sig Dispensed Refills Start Date End Date acetaminophen (TYLENOL) 500 mg tablet Take 2 tablets by mouth 3 (three) times a day. 0 06/05/2015 amitriptyline (ELAVIL) 25 mg tablet Take 1 tablet by mouth at bedtime. 0 06/05/2015 atorvastatin (LIPITOR) 40 mg tablet Take 1 tablet by mouth daily. 0 06/05/2015 celecoxib (CeleBREX) 200 mg capsule Take 200 mg by mouth daily. 0 Eliquis 5 mg tablet Take 5 mg by mouth 2 (two) times a day. 0 09/09/2022 gabapentin (NEURONTIN) 600 mg tablet Take 2 tablets by mouth 3 (three) times a day. 0 06/05/2015 LACTOBACILLUS ACIDOPHILUS ORAL Take 1 capsule by mouth daily. 0 lisinopril (PRINIVIL,ZESTRIL) 5 mg tablet Take 1 tablet by mouth daily. 0 06/05/2015 metFORMIN (GLUCOPHAGE) 500 mg tablet Take 1 tablet by mouth 2 (two) times a day. 0 10/02/2010 metoprolol tartrate (LOPRESSOR) 50 mg tablet Take 1 tablet by mouth 2 (two) times a day. 0 10/02/2010 venlafaxine XR (EFFEXOR-XR) 150 mg 24 hr capsule Take 150 mg by mouth daily with breakfast. Total of 225mg 0 07/20/2019 venlafaxine XR (EFFEXOR-XR) 75 mg 24 hr capsule Take 75 mg by mouth daily with breakfast. 0 10/25/2022 HYDROcodone-acetaminophen (NORCO) 5-325 mg per tablet Take 1 tablet by mouth. 0 09/15/2017 03/19/2023 L. acidophilus/pectin, citrus (ACIDOPHILUS PROBIOTIC ORAL) Take 1 capsule by mouth daily. 0 06/19/2021 03/19/2023 oxyCODONE (ROXICODONE) 5 mg immediate release tablet TAKE 4 TABLETS BY MOUTH FOUR TIMES DAILY NEEDED FOR CHRONIC KNEE PAIN 0 11/17/2022 03/19/2023 varenicline (Chantix) 1 mg tablet Take 1 mg by mouth 2 (two) times a day with meals. 0 09/08/2022 03/19/2023 documented as of this encounter Plan of Treatment Not on file documented as of this encounter Procedures Procedure Name Priority Date/Time Associated Diagnosis Comments ICD REMOTE FOLLOW UP Routine 03/12/2023 10:48 AM CDT Aftercare Cardiac Defibrillator documented in this encounter Results * ICD REMOTE FOLLOW UP (03/12/2023 10:48 AM CDT) Date Time Interrogation Session [id number] [employer] [facility] Implantable Pulse Generator [employer] [facility] Implantable Pulse Generator Model D153 DYNAGEN [employer] [facility] Implantable Pulse Generator Serial Number [id number] [facility] Type Interrogation Session Remote [facility] Clinic Name [facility] Implantable Pulse Generator Type Defibrillator [facility] Implantable Pulse Generator Implant Date 20190620 [facility] Implantable Lead Automotive Light Mechanic Guidant [facility] Implantable Lead Model 0185 [place] G [facility] Implantable Lead Serial Number [id number] [facility] Implantable Lead Implant Date 20080920 [facility] Implantable Lead Polarity Type Tripolar Lead [facility] Implantable Lead Location Detail 1 Endocardial [facility] Implantable Lead Special Function Lead length: 64 cm [facility] Implantable Lead Location Right Ventricle [facility] Implantable Lead Automotive Light Mechanic Guidant [facility] Implantable Lead Model 4087 Flextend [facility] Implantable Lead Serial Number [id number] [facility] Implantable Lead Implant Date 20080920 [facility] Implantable Lead Polarity Type Bipolar Lead [facility] Implantable Lead Location Detail 1 Endocardial [facility] Implantable Lead Special Function Lead length: 52 cm [facility] Implantable Lead Location Right Atrium [facility] Hernandez Setting Mode (NBG Code) DDD [facility] Hernandez Setting Lower Rate Limit 50 {beats}/ min [facility] Hernandez Setting Maximum Tracking Rate 100 {beats}/ min [facility] Hernandez Setting Maximum Sensor Rate 100 {beats}/ min [facility] Hernandez Setting [place] Delay Low 300 ms [facility] Hernandez Setting PAV Delay Low 300 ms [facility] Hernandez Setting PAV Delay High 200 ms [facility] Hernandez Setting [place] Delay High 200 ms [facility] Hernandez Setting AT Mode Switch Rate 170 {beats}/ min [facility] Hernandez Setting AT Mode Switch Mode DDIR [facility] Lead Channel Setting Sensing Polarity Bipolar [facility] Lead Channel Setting Sensing Sensitivity 0.7 mV [facility] Lead Channel Setting Sensing Adaptation Mode Adaptive [facility] Lead Channel Setting Sensing Polarity Bipolar [facility] Lead Channel Setting Sensing Sensitivity 0.4 mV [facility] Lead Channel Setting Sensing Adaptation Mode Adaptive [facility] Lead Channel Setting Pacing Polarity Bipolar [facility] Lead Channel Setting Pacing Pulse Width 0.4 ms [facility] Lead Channel Setting Pacing Amplitude 2.0 V [facility] Lead Channel Setting Pacing Polarity Bipolar [facility] Lead Channel Setting Pacing Pulse Width 0.4 ms [facility] Lead Channel Setting Pacing Amplitude 2.0 V [facility] Zone Setting Type Category VF [facility] Zone Setting Detection Interval 273 ms [facility] Zone Setting Type Category VT [facility] Zone Setting Detection Interval 353 ms [facility] Lead Channel Impedance Value 493 ohm [facility] Lead Channel Impedance Value 410 ohm [facility] Battery Date Time of Measurements [facility] Battery Status Beginning of Service [facility] Battery Remaining Longevity 126 mo [facility] Battery Remaining Percentage 100 % [facility] Capacitor Charge Type Reformation [facility] Capacitor Last Charge Date Time [facility] Capacitor Charge Time 10.7 s [facility] Hernandez Statistic Date Time Start [facility] Hernandez Statistic Date Time End [facility] Hernandez Statistic RA Percent Paced 0 % [facility] Hernandez Statistic RV Percent Paced 0 % [facility] Atrial Tachy Statistic Date Time Start [facility] Atrial Tachy Statistic Date Time End [facility] Atrial Tachy Statistic AT/AF [place] Percent 1 % [facility] Therapy Statistic Recent Shocks Delivered 0 [facility] Therapy Statistic Recent Shocks Aborted 0 [facility] Therapy Statistic Recent ATP Delivered 0 [facility] Therapy Statistic Recent Date Time Start [facility] Therapy Statistic Recent Date Time End [facility] Therapy Statistic Total Shocks Delivered 0 [facility] Therapy Statistic Total Shocks Aborted 0 [facility] Therapy Statistic Total ATP Delivered 0 [facility] Therapy Statistic Total Date Time Start [facility] Therapy Statistic Total Date Time End [facility] Episode Statistic Recent Count 2 [facility] Episode Statistic Type Category AT/AF [facility] Episode Statistic Vendor Type Category AF [facility] Episode Statistic Recent Count 1 [facility] Episode Statistic Type Category Other [facility] Episode Statistic Recent Count [...] LAB SYSTEM Episode Statistic Vendor Type Category VT [facility] Episode Statistic Recent Count 0 [facility] Episode Statistic Type Category VT [facility] Episode Statistic Vendor Type Category VT-1 [facility] Episode Statistic Recent Date Time Start [facility] Episode Statistic Recent Date Time End [facility] Episode Statistic Recent Date Time Start F[facility] Episode Statistic Recent Date Time End [facility] Episode Statistic Recent Date Time Start F[facility] Episode Statistic Recent Date Time End [facility] Episode Statistic Recent Date Time Start F[facility] Episode Statistic Recent Date Time End [facility] Episode Statistic Recent Date Time Start F[facility] Episode Statistic Recent Date Time End [facility] Episode Statistic Recent Date Time Start F[facility] Episode Statistic Recent Date Time End [id number] [facility] Episode Type Category Periodic EGM [facility] Episode Date Time [id number] [facility] Anatomical Region Laterality Modality Other 03/11/2023 8:22 PM CDT Narrative 03/15/2023 6:59 PM CDT PURPOSE OF VISIT: ??Routine quarterly device remote transmission. ?? PRESENTING EGM: ??Atrial sensed/ ventricular sensed at 125 bpm. ATRIAL ARRHYTHMIAS: ??Since 12/09/22 none. VENTRICULAR ARRHYTHMIAS: ??None. ?PVC [place]: Since 06/19/22 Total PVCs burden was 6066. BATTERY LONGEVITY: Expected battery longevity trends reviewed and are stable and consistent with device settings and use. SUMMARY: All device function appears normal. FOLLOW UP: Next routine follow-up will be in 3 months via [employer]. DEVICE RN: Gabby Cruz. Provider statement: This patient underwent device interrogation. I agree that the device interrogation was medically indicated to provide appropriate care and continue routine device interrogations as indicated. Naman Snyder M.D. CV IMPLANTABLE CARDIAC DEVICE documented in this encounter Visit Diagnoses Diagnosis Aftercare Cardiac Defibrillator documented in this encounter Care Teams Valet Manager Relationship Specialty Start Date End Date Elsewhere, Pcp PCP - General Internal Medicine 11/04/22 documented as of this encounter
--- OUTSIDE RECORDS SUMMARY | 2023-07-30 11:06 | XMS_ITS | Referral Summary ---
Author Name Unknown Organization [facility] Address [address] [place] [address] Care Team Providers Care Corporate Associate Attorney Name Role Phone Elsewhere, Pcp Primary Care Provider Unavailabl e Source Comments Patient records contain information from all sites at [facility]. For routine questions regarding patient records, call [phone] during business hours, M-F 8:00 AM - 5:00 PM Central Time. Record requests for emergency care only can be directed to [phone] at any time.[facility] Encounters Date Type Department Care Team Description 07/06/2023 Orders Only Department of Cardiovascular Diseases in [place], [place] [address] [place] [phone] Ying Wright M.D. Aftercare Cardiac Defibrillator (Primary Dx) 07/06/2023 2:45 PM IT SENIOR SOFTWARE ENGINEER JAVA - 07/06/2023 11:59 PM IT SENIOR SOFTWARE ENGINEER JAVA Hospital Encounter Department of Cardiovascular Diseases in [place], [place] [address] [phone] Paramjit Neely M.D. Aftercare Cardiac Defibrillator Discharge Disposition: Home or Self Care 06/10/2023 4:00 AM IT SENIOR SOFTWARE ENGINEER JAVA - 06/10/2023 11:59 PM IT SENIOR SOFTWARE ENGINEER JAVA Hospital Encounter Department of Cardiovascular Diseases in [place], [place] [address] [place] [address] Preet Daugherty M.D., M.P.H. 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 11/04/2022 Immunizations Name Administration Dates Next Due HZV (ZOSTAVAX) 12/18/2015 Influenza Split 04/16/2015 Influenza high dose QV(65 ye ars or older) (PF) 07/31/2022,06/24/2021,05/09/2020 Influenza, Injectable, Quadrivalent 03/27/2016 Influenza, Seasonal, Injectable 05/10/2013 PCV13 05/09/2020,10/01/2017 PPSV23 06/24/2021,01/02/2014 RZV (SHINGRIX) 11/18/2017,08/31/2017 SARS-COV-2 (COVID-19) - MODERNA 07/04/2021 Tdap 01/02/2014 influenza high dose (65 year s or older) (PF) 04/16/2015 influenza vaccine quad (FLUZONE/FLUARIX) (6 months and older)(PF) 06/20/2019,04/19/2019,05/10/2018,2016,03/27/2016,04/16/2015,05/10/2013 Social History Tobacco Use Types Packs/Day Years [...] week 09/21/2022 How often do you attend [facility] or congregation services? Never 09/21/2022 Do you belong to [...] Answer Date Recorded PHQ-2 Score 2 11/01/2022 [facility] - Occupational Stress [...] your living situation today? [facility] 12/12/2022 Education Answer Date Recorded What is the highest level of school you have completed or the highest degree you have received? Associate degree: occupational, technical, or vocational program 09/21/2022 Sex and Gender Information Value Date Recorded Sex Assigned at Female 09/21/2022 2:32 PM IT SENIOR SOFTWARE ENGINEER JAVA Gender Identity Female 03/25/2018 1:18 PM CDT Sexual Orientation Straight 03/25/2018 1: 18 PM CDT Last Filed Vital Signs Vital Sign Reading Time Taken Comments Blood Pressure 131/74 02/01/2023 3:15 PM CDT Pulse 84 02/01/2023 3:15 PM CDT Temperature 36 ??C (96.8 ??F) 02/01/2023 3:15 PM CDT Respiratory Rate 16 02/01/2023 3:15 PM CDT Oxygen Saturation 98% 06/20/2019 11:24 AM IT SENIOR SOFTWARE ENGINEER JAVA Inhaled Oxygen Concentration - - Weight 88.7 kg (195 lb 8.8 oz) 02/01/2023 3:15 P M CDT Height 178.6 cm (5' 10.32) 11/04/2022 3:57 PM C DT Body Mass Index 27.81 11/04/2022 3:57 PM CDT Plan of Treatment Not on file Medical Devices Implanted Type Area Battery Container Tester Aluminum Device Identifier Shelf Expiration Date Model / Serial / Lot Lead Guidant [id number] Implanted:10/2008 by Fareed Alvarez M.D. (Quantity not on file) Cardiac Lead Other/Legacy - See Implant Description Guidant [id number] / [id number] / Description:LEAD Guidant Cor p [id number] Flextend Conversions - Default Historical Implant Device Implanted:12/2013 (Quantity not on file) Hip Implant Description:Device Status Te xt - Hip Joint. artificial left hip. Icd Mike Angel Dr Df1 - [id number] - [id number] Implanted:Qty : 1 on 06/20/2019 by Fareed Alvarez M.D. at [facility] Implant Cardiac Defibrillator [employer] 02/27/2020 [id number] / [id number] / Knee Implant-2022 Implanted: by Lawrence Arita M.D. (Quantity not on file) Knee Implant Right: Knee Jacqueline TRIATHLON / / Knee Implant- 023 Implanted:02/2023 by Lawrence Arita M.D. (Quantity not on file) Knee Implant Left: Knee Jacqueline TRIATHLON / / Explanted Type Area Battery Container Tester Aluminum Device Identifier Shelf Expiration Date Model / Serial / Lot [facility] E110 Teligen [id number] Implanted:10/2008 (Quantity not on file) Explanted:Qty : 1 on 06/20/2019 by Fareed Alvarez M.D. at [facility] Implant Cardiac Defibrillator [employer] E110 TELIGEN 100 / [id number] / Procedures Procedure Name Priority Date/Time Associated Diagnosis Comments ICD DUAL CHAMBER INTERROGATION WITH PROGRAMMING Routine 07/06/2023 3:19 PM IT SENIOR SOFTWARE ENGINEER JAVA Aftercare Cardiac Defibrillator ICD REMOTE FOLLOW UP Routine 06/15/2023 12:46 PM IT SENIOR SOFTWARE ENGINEER JAVA Aftercare Cardiac Defibrillator from Last 3 Months Results * ICD DUAL CHAMBER INTERROGATION WITH PROGRAMMING (07/06/2023 3:19 PM IT SENIOR SOFTWARE ENGINEER JAVA) Only the most recent of2 resultswithin the time period is included. Date Time Interrogation Session [id number] [facility] Implantable Pulse Generator Battery Container Tester Aluminum [employer] [facility] Implantable Pulse Generator Model D153 DYNAGEN [facility] Implantable Pulse Generator Serial Number [id number] [facility] Type Interrogation Session In Clinic [facility] Clinic Name [facility] Prim [facility] Implantable Pulse Generator Type Defibrillator [facility] Implantable Pulse Generator Implant Date 20190620 [facility] Implantable Lead Battery Container Tester Aluminum Guidant [facility] Implantable Lead Model 0185 [place] G [facility] Implantable Lead Serial Number [id number] [facility] Implantable Lead Implant Date 20080920 [facility] Implantable Lead Polarity Type Tripolar Lead [facility] Implantable Lead Location Detail 1 Endocardial [facility] Implantable Lead Special Function Lead length: 64 cm [facility] Implantable Lead Location Right Ventricle [facility] Implantable Lead Battery Container Tester Aluminum Guidant [facility] Implantable Lead Model 4087 Flextend [facility] Implantable Lead Serial Number [id number] [facility] Implantable Lead Implant Date 20080920 [facility] Implantable Lead Polarity Type Bipolar Lead [facility] Implantable Lead Location Detail 1 Endocardial [facility] Implantable Lead Special Function Lead length: 52 cm [facility] Implantable Lead Location Right Atrium [facility] Hernandez Setting Mode (NBG Code) DDD [facility] Hernandez Setting Lower Rate Limit 50 {beats}/ min [facility] Hernandez Setting Maximum Tracking Rate 100 {beats}/ min [facility] Hernandez Setting Maximum Sensor Rate 100 {beats}/ min [facility] Hernandez Setting [place] Delay Low 300.0 ms [facility] Hernandez Setting PAV Delay Low 300.0 ms [facility] Hernandez Setting PAV Delay High 200.0 ms [facility] Hernandez Setting [place] Delay High 200.0 ms [facility] Hernandez Setting AT Mode Switch Rate 170 {beats}/ min [facility] Hernandez Setting AT Mode Switch Mode DDIR [facility] Lead Channel Setting Sensing Polarity Bipolar [facility] Lead Channel Setting Sensing Sensitivity 0.7 mV [facility] Lead Channel Setting Sensing Adaptation Mode Adaptive [facility] Lead Channel Setting Sensing Polarity Bipolar [facility] Lead Channel Setting Sensing Sensitivity 0.4 mV [facility] Lead Channel Setting Sensing Adaptation Mode Adaptive [facility] Lead Channel Setting Pacing Polarity Bipolar [facility] Lead Channel Setting Pacing Pulse Width 0.4 ms [facility] Lead Channel Setting Pacing Amplitude 2.8 V [facility] Lead Channel Setting Pacing Capture Mode Fixed Pacing [facility] Lead Channel Setting Pacing Polarity Bipolar [facility] Lead Channel Setting Pacing Pulse Width 0.4 ms [facility] Lead Channel Setting Pacing Amplitude 2.0 V [facility] Lead Channel Setting Pacing Capture Mode Fixed Pacing [facility] Zone Setting Type Category VF [facility] Zone Setting Detection Interval 273.0 ms [facility] Zone Setting Type Category VT [facility] Zone Setting Detection Interval 353.0 ms [facility] Zone Setting Type Category VT [facility] Lead Channel Impedance Value 516.0 ohm [facility] Lead Channel Sensing Intrinsic Amplitude 4.2 mV [facility] Lead Channel Pacing Threshold Amplitude 1.4 V [facility] Lead Channel Pacing Threshold Pulse Width 0.4 ms [facility] Lead Channel Impedance Value 434.0 ohm [facility] Lead Channel Sensing Intrinsic Amplitude 14.9 mV [facility] Lead Channel Pacing Threshold Amplitude 1.0 V [facility] Lead Channel Pacing Threshold Pulse Width 0.4 ms [facility] Battery Date Time of Measurements [id number] [facility] Battery Remaining Longevity 126 mo [facility] Capacitor Charge Type Reformation [facility] Capacitor Charge Time 10.80 s [facility] Capacitor Charge Type Shock [facility] Capacitor Charge Time 0 s [facility] Capacitor Charge Energy 0 J [facility] Therapy Statistic Total Shocks Delivered 0 [facility] Therapy Statistic Total Shocks Aborted 0 [facility] Therapy Statistic Total ATP Delivered 0 [facility] Therapy Statistic Total Date Time End [id number] [facility] Therapy Statistic Recent Shocks Delivered [...] Region Laterality Modality Other 07/06/2023 3:02 PM IT SENIOR SOFTWARE ENGINEER JAVA Narrative 07/14/2023 1:38 PM IT SENIOR SOFTWARE ENGINEER JAVA PURPOSE OF VISIT: Routine annual ICD evaluation performed in the [facility]. PRESENTING RHYTHM: /VS @ 82 bpm UNDERLYING [...] Advance Directives For more information, please contact: [phone] Documents on File Type Date Recorded Patient Health Informatics Instructor Expl anation Advance Directives 02/22/2014 12:00 AM Sidra goins document. See document viewer. Care Teams Corporate Associate Attorney Relationship Specialty Start Date End Date Elsewhere, Pcp PCP - General Internal Medicine 11/04/22
--- OUTSIDE RECORDS SUMMARY | 2023-07-30 11:06 | XMS_ITS ---
Author Name Unknown Organization [facility] Address [address] [place] [address] Care Team Providers Care Switchboard Operator Supervisor Name Role Phone Unavailable Unavailable Unavailable Surgery Details Not on file Complications Check Surgery Details section. Procedure Estimated Blood Loss Check Surgery Details section. Procedure Findings Check Surgery Details section. Procedure Specimens Taken Check Surgery Details section.
--- OUTSIDE RECORDS SUMMARY | 2023-07-30 11:06 | XMS_ITS | Encounter Summary ---
Author Name Unknown Organization [facility] Address [address] [place] [address] Care Team Providers Care It Operations Analyst Name Role Phone Elsewhere, Pcp Primary Care Provider Unavailabl e Encounter Details Date Type Department Care Team (Latest Contact Info) Description 07/06/2023 Orders Only Department of Cardiovascular Diseases in [place], [place] [address] [place] [phone] Ying Wright M.D. [address] [place] [phone] Aftercare Cardiac Defibrillator (Primary Dx) Social History Tobacco Use Types Packs/Day Years [...] often do you attend chur ch or islam services? Never 09/21/2022 Do you belong to any clubs o r organizations such as christian groups, unions, fraternal or athletic groups, or [...] Answer Date Recorded PHQ-2 Score 2 11/01/2022 [facility] - Occupational Stress [...] the money to buy more. Never true 05/26/20 23 Within the past 12 months, t [...] your living situation today? I have a [facility] place to live 12/12/2022 Education Answer Date Recorded What is the highest level of school you have completed or the highest degree you have received? Associate degree: occupational, technical, or vocational program 09/21/2022 Sex and Gender Information Value Date Recorded Sex Assigned at Female 09/21/2022 2:32 PM POLITICAL ORGANIZER Gender Identity Female 03/25/2018 1:18 PM CDT Sexual Orientation Straight 03/25/2018 1: 18 PM CDT documented as of this encounter Plan of Treatment Scheduled Orders Name Type Priority Associated Diagnoses Orde r Schedule Cardiac Device Interrogation Implantable Cardiac Device Routine Aftercare Cardiac Defibrillator Expected: 07/06/2024 (Approximate), Expires: 10/04/2024 documented as of this encounter Visit Diagnoses Diagnosis Aftercare Cardiac Defibrillator- Primary documented in this encounter Care Teams It Operations Analyst Relationship Specialty Start Date End Date Elsewhere, Pcp PCP - General Internal Medicine 11/04/22 documented as of this encounter
--- OUTSIDE RECORDS SUMMARY | 2023-07-30 11:06 | XMS_ITS | Encounter Summary ---
Author Name Unknown Organization [facility] Address [address] [place] [address] Care Team Providers Care Fuel House Attendant Name Role Phone Elsewhere, Pcp Primary Care Provider Unavailabl e Reason for Referral * Outpatient (Routine) - Closed Specialty Diagnoses / Procedures Referred By Contac t Referred To Contact Diagnoses Fracture Femur Midcervical Nondisplaced Closed Subsequent With Routine Healing Right Procedures DX Hip And Pelvis Right 2-3 Views Sarah Clark P.A.-C., P.A. [address] [phone] [facility] Region Referral ID Status Reason Start Date Expiration Date Visits Re quested Visits Authorized [id number] Closed 03/17/2023 03/16/2024 1 1 Reason for Visit * Outpatient (Routine) - Closed Specialty Diagnoses / Procedures Referred By Contac t Referred To Contact Diagnoses Fracture Femur Midcervical Nondisplaced Closed Subsequent With Routine Healing Right Procedures DX Hip And Pelvis Right 2-3 Views Sarah Clark P.A.-C., P.A. [address] [phone] [facility] Referral ID Status Reason Start Date Expiration Date Visits Re quested Visits Authorized [id number] Closed 03/17/2023 03/16/2024 1 1 Encounter Details Date Type Department Care Team (Latest Contact Info) Description 03/19/2023 12:42 PM CDT - 03/19/2023 11:59 PM CDT Hospital Encounter Department of Radiology in [place], [place] [address] [place] [phone] Sarah Clark P.A.-C., P.A. [address] [place] [phone] Fracture Femur Midcervical Nondisplaced Closed Subsequent With Routine Healing Right Discharge Disposition: Home or Self Care Social [...] week 09/21/2022 How often do you attend [facility] or [facility]ist services? Never 09/21/2022 Do you belong to any clubs o r organizations such as spiritism groups, unions, fraternal or athletic groups, or [...] Answer Date Recorded PHQ-2 Score 2 11/01/2022 [facility] - Occupational Stress Questionnaire Answer Date Recorded [...] your living situation today? I have a [facility] place to live 12/12/2022 Education Answer Date Recorded What is the highest level of school you have completed or the highest degree you have received? Associate degree: occupational, technical, or vocational program 09/21/2022 Sex and Gender Information Value Date Recorded Sex Assigned at Female 09/21/2022 2:32 PM SURGICAL LEAD Gender Identity Female 03/25/2018 1:18 PM CDT [...] by mouth daily with breakfast. 0 10/25/2022 documented as of this encounter Plan of Treatment Not on file documented as of this encounter Procedures Procedure Name Priority Date/Time Associated Diagnosis Comments DX HIP AND PELVIS RIGHT 2-3 VIEWS RAD - Routine (most inpatients and all outpatients) 03/19/2023 1:04 PM CDT Fracture Femur Midcervical Nondisplaced Closed Subsequent With Routine Healing Right documented in this encounter Results * DX Hip And [...] lumbar spinal surgical instrumentation. Sarah Clark P.A.-C., P.A. IMG [facility]AG[facility] PROCEDURES documented in this encounter Visit Diagnoses Diagnosis Fracture Femur Midcervical Nondisplaced Closed Subsequent With Routine Healing Right documented in this encounter Care Teams Fuel House Attendant Relationship Specialty Start Date End Date Elsewhere, Pcp PCP - General Internal Medicine 11/04/22 documented as of this encounter
--- OUTSIDE RECORDS SUMMARY | 2023-07-30 11:06 | XMS_ITS | Encounter Summary ---
Author Name Unknown Organization [facility] Address [address] [place] [address] Care Team Providers Care Mitten Stitcher Name Role Phone Elsewhere, Pcp Primary Care Provider Unavailabl e Encounter Details Date Type Department Care Team (Latest Contact Info) Description 07/06/2023 2:45 PM BANQUET LINE COOK - 07/06/2023 11:59 PM BANQUET LINE COOK Hospital Encounter Department of Cardiovascular Diseases in [place], [place] [address] [place] [address] Paramjit Neely M.D. [address] [place] [address] Aftercare Cardiac Defibrillator Discharge Disposition: Home or [...] often do you attend chur ch or yazidi services? Never 09/21/2022 Do you belong to any clubs o r organizations such as lutheran groups, unions, fraternal or athletic groups, or [...] Date Recorded PHQ-2 Score 2 11/01/2022 [facility] of Occupat ional Health - Occupational Stress [...] your living situation today? I have a [facility] place to live 12/12/2022 Education Answer Date Recorded What is the highest level of school you have completed or the highest degree you have received? Associate degree: occupational, technical, or vocational program 09/21/2022 Sex and Gender Information Value Date Recorded Sex Assigned at Female 09/21/2022 2:32 PM BANQUET LINE COOK Gender Identity Female 03/25/2018 1:18 PM CDT [...] INTERROGATION WITH PROGRAMMING Routine 07/06/2023 3:19 PM BANQUET LINE COOK Aftercare Cardiac Defibrillator documented in this encounter Results * ICD DUAL CHAMBER INTERROGATION WITH PROGRAMMING (07/06/2023 3:19 PM BANQUET LINE COOK) Date Time Interrogation Session [id number] [facility] Implantable Pulse Generator Print Finisher [place] Results Scorecard [facility] Implantable Pulse Generator Model D153 DYNAGEN [facility] Implantable Pulse Generator Serial Number [id number] [facility] Type Interrogation Session In Clinic [facility] Clinic Name [facility] Implantable Pulse Generator Type Defibrillator [facility] Implantable Pulse Generator Implant Date 20190620 [facility] Implantable Lead Print Finisher Guidant [facility] Implantable Lead Model 0185 Endotak [place] G [facility] Implantable Lead Serial Number [id number] [facility] Implantable Lead Implant Date 20080920 [facility] Implantable Lead Polarity Type Tripolar Lead [facility] Implantable Lead Location Detail 1 Endocardial [facility] Implantable Lead Special Function Lead length: 64 cm [facility] Implantable Lead Location Right Ventricle [facility] Implantable Lead Print Finisher Guidant [facility] Implantable Lead Model 4087 Flextend [facility] Implantable Lead Serial Number [id number] [facility] Implantable Lead Implant Date 20080920 [facility] Implantable Lead Polarity Type Bipolar Lead [facility] Implantable Lead Location Detail 1 Endocardial [facility] Implantable Lead Special Function Lead length: 52 cm [facility] Implantable Lead Location Right Atrium [facility] Hernandez Setting Mode (NBG Code) DDD [facility] Hernandez Setting Lower Rate Limit 50 {beats}/ min [facility] Hernandez Setting Maximum Tracking Rate 100 {beats}/ min [facility] Hernandez Setting Maximum Sensor Rate 100 {beats}/ min [facility] Hernandez Setting [place] Delay Low 300.0 ms [facility] Hernandez Setting PAV Delay Low 300.0 ms [facility] Hernandez Setting PAV Delay High 200.0 ms [facility] Hernandez Setting [place] Delay High 200.0 ms [facility] Hernandez Setting AT Mode Switch Rate 170 {beats}/ min [facility] Hernandez Setting AT Mode Switch Mode DDIR [facility] Lead Channel Setting Sensing Polarity Bipolar [facility] Lead Channel Setting Sensing Sensitivity 0.7 mV [facility] Lead Channel Setting Sensing Adaptation Mode Adaptive [facility] Lead Channel Setting Sensing Polarity Bipolar [facility] Lead Channel Setting Sensing Sensitivity 0.4 mV [facility] Lead Channel Setting Sensing Adaptation Mode Adaptive [facility] Lead Channel Setting Pacing Polarity Bipolar [facility] Lead Channel Setting Pacing Pulse Width 0.4 ms [facility] Lead Channel Setting Pacing Amplitude 2.8 V [facility] Lead Channel Setting Pacing Capture Mode Fixed Pacing [facility] Lead Channel Setting Pacing Polarity Bipolar [facility] Lead Channel Setting Pacing Pulse Width 0.4 ms [facility] Lead Channel Setting Pacing Amplitude 2.0 V [facility] Lead Channel Setting Pacing Capture Mode Fixed Pacing [facility] Zone Setting Type Category VF [facility] Zone Setting Detection Interval 273.0 ms [facility] Zone Setting Type Category [place] [facility] Zone Setting Detection Interval 353.0 ms [facility] Zone Setting Type Category VT [facility] Lead Channel Impedance Value 516.0 ohm [facility] Lead Channel Sensing Intrinsic Amplitude 4.2 mV [facility] Lead Channel Pacing Threshold Amplitude 1.4 V [facility] Lead Channel Pacing Threshold Pulse Width 0.4 ms [facility] Lead Channel Impedance Value 434.0 ohm [facility] Lead Channel Sensing Intrinsic Amplitude 14.9 mV [facility] Lead Channel Pacing Threshold Amplitude 1.0 V [facility] Lead Channel Pacing Threshold Pulse Width 0.4 ms [facility] Battery Date Time of Measurements [id number] [facility] Battery Remaining Longevity 126 mo [facility] Capacitor Charge Type Reformation [facility] Capacitor Charge Time 10.80 s [facility] Capacitor Charge Type Shock [facility] Capacitor Charge Time 0 s [...] Region Laterality Modality Other 07/06/2023 3:02 PM BANQUET LINE COOK Narrative 07/14/2023 1:38 PM BANQUET LINE COOK PURPOSE OF VISIT: Routine annual ICD evaluation performed in the [facility]. PRESENTING RHYTHM: /VS @ 82 bpm [...] Neely M.D. CV IMPLANTABLE CARD IAC DEVICE documented in this encounter Visit Diagnoses Diagnosis Aftercare Cardiac Defibrillator documented in this encounter Care Teams Mitten Stitcher Relationship Specialty Start Date End Date Elsewhere, Pcp PCP - General Internal Medicine 11/04/22 documented as of this encounter
--- OUTSIDE RECORDS SUMMARY | 2023-07-30 11:06 | XMS_ITS | Encounter Summary ---
Author Name Unknown Organization [facility] Address [address] [place] [address] Care Team Providers Care Architectural Representative Name Role Phone Elsewhere, Pcp Primary Care Provider Unavailabl e Reason for Visit * Reason Comments Arthroplasty Follow-up Post-op Arthroplasty Follow-up Post-op * Outpatient (Routine) - Closed Specialty Diagnoses / Procedures Referred By Inderjit brown Referred To Contact Orthopedic Surgery Milton Mckeon P.A.-C. [address], [place] [address] [facility] Region Referral ID Status Reason Start Date Expiration Date Visits Re quested Visits Authorized [id number] Closed 11/26/2022 11/25/2025 1 1 Encounter Details Date Type Department Care Team (Late st Contact Info) Description 02/09/2023 9:30 AM CDT Office Visit Department of Orthopedic Surgery in [place], [place] [address] [place] [address] Lawrence Arita M.D. 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 Never 09/21/2022 Do you belong to any clubs o r organizations such as yarsanism groups, unions, fraternal or athletic groups, or [...] Answer Date Recorded PHQ-2 Score 2 11/01/2022 [facility] of Occupat ional Health - Occupational [...] your living situation today? I have a [facility] place to live 12/12/2022 Education Answer Date Recorded What is the highest level of school you have completed or the highest degree you have received? Associate degree: occupational, technical, or vocational program 09/21/2022 Sex and Gender Information Value Date Recorded Sex Assigned at Female 09/21/2022 2:32 PM LEAK INSPECTOR Gender Identity Female 03/25/2018 1:18 PM CDT Sexual Orientation Straight 03/25/2018 1: 18 PM CDT documented as of this encounter Progress Notes * Lawrence Arita M.D. - 02/09/2023 11:00 AM CDT HPI: Suzi returns to clinic 6 weeks out from a left total knee arthroplasty in 3 months out from right total knee arthroplasty. She has been in physical therapy. Her knees are doing excellent. They areboth much better than prior to surgery. PHYSICAL EXAM: Examination of her bilateral knees reveals well-healed surgical incisions. No evidence for infection. She is neurovascular intact. Knees are ligamentously stable bilaterally. Range of motion 0-115 degrees bilaterally. IMAGING: X-rays taken today demonstrate well-seated components. No evidence for early complication. ASSESSMENT AND PLAN: Suzi is 6 weeks out from a left total knee arthroplasty and 3 months out from a right total kneearthroplasty. She will finish out physical therapy. She will increase activities based on pain. Olivia return to clinic for her three-month postop visit on her left knee. If she is still having increasing hip pain at that visit, we will order an x-ray to be done to check her hardware. documented in this encounter Plan of Treatment Not on file documented as of this encounter Visit Diagnoses Diagnosis Arthroplasty Total Knee Replacement Status Post Right- Primary Arthroplasty Total Knee Replacement Status Post Left documented in this encounter Care Teams Architectural Representative Relationship Specialty Start Date End Date Elsewhere, Pcp PCP - General Internal Medicine 11/04/22 documented as of this encounter
--- OUTSIDE RECORDS SUMMARY | 2023-07-30 11:06 | XMS_ITS | Encounter Summary ---
Author Name Unknown Organization [facility] Address [address] [place] [address] Care Team Providers Care Sugar Mixer Name Role Phone Elsewhere, Pcp Primary Care Provider Unavailabl e Encounter Details Date Type Department Care Team (Latest Contact Info) Description 06/10/2023 4:00 AM FEED IN WORKER - 06/10/2023 11:59 PM [facility] Hospital Encounter Department of Cardiovascular Diseases in [place], [place] [address] [place] [address] Preet Daugherty M.D., M.P.H. [address] [place] [phone] Aftercare Cardiac Defibrillator Discharge Disposition: Home or [...] often do you attend chur ch or scientology services? Never 09/21/2022 Do you belong to any clubs o r organizations such as jainism groups, unions, fraternal or athletic groups, or [...] Answer Date Recorded PHQ-2 Score 2 11/01/2022 [facility] of Occupat ional Health - Occupational [...] your living situation today? I have a [facility] place to live 12/12/2022 Education Answer Date Recorded What is the highest level of school you have completed or the highest degree you have received? Associate degree: occupational, technical, or vocational program 09/21/2022 Sex and Gender Information Value Date Recorded Sex Assigned at Female 09/21/2022 2:32 PM FEED IN WORKER Gender Identity Female 03/25/2018 1:18 PM CDT [...] Diagnosis Comments ICD REMOTE FOLLOW UP Routine 06/15/2023 12:46 PM FEED IN WORKER Aftercare Cardiac Defibrillator documented in this encounter Results * ICD REMOTE FOLLOW UP (06/15/2023 12:46 PM FEED IN WORKER) Date Time Interrogation Session [id number] [facility] Implantable Pulse Generator Cat And Dog Bather Vquence [facility] Implantable Pulse Generator Model D153 DYNAGEN [facility] Implantable Pulse Generator Serial Number [id number] [facility] Type Interrogation Session Remote [facility] Clinic Name [facility] Implantable Pulse Generator Type Defibrillator [facility] Implantable Pulse Generator Implant Date 20190620 [facility] Implantable Lead Cat And Dog Bather Guidant [facility] Implantable Lead Model 0185 Endotak [place] G [facility] Implantable Lead Serial Number [id number] [facility] [...] Right Ventricle [facility] Implantable Lead Cat And Dog Bather Guidant [facility] Implantable Lead Model 4087 Flextend [facility] Implantable Lead Serial Number [id number] [facility] [...] [facility] Lead Channel Impedance Value 499 ohm [facility] Lead Channel Pacing Threshold Amplitude 1.0 V [facility] Lead Channel Pacing Threshold Pulse Width 0.4 ms [facility] Lead Channel Impedance Value 411 ohm [facility] Lead Channel Pacing Threshold Amplitude 1.0 V [facility] Lead Channel Pacing Threshold Pulse Width 0.4 ms [facility] Capacitor Charge Time 10.8 s [facility] Hernandez Statistic Date Time Start [facility] Hernandez Statistic Date Time End [facility] Hernandez Statistic RA Percent Paced 0 % [facility] Hernandez Statistic RV Percent Paced 0 % [facility] Atrial Tachy Statistic Date Time Start [id number] [facility] Atrial Tachy Statistic Date Time End [facility] Atrial Tachy Statistic AT/AF Captiva Percent 1 % [facility] Therapy [...] Date Time End [facility] Episode Type Category Periodic EGM [facility] Episode Date Time [id number] [facility] Anatomical Region Laterality Modality Other 06/10/2023 4:02 AM FEED IN WORKER Narrative 06/16/2023 6:56 PM FEED IN WORKER PURPOSE OF VISIT: ??Routine quarterly device remote transmission. ?? PRESENTING EGM: ??Atrial sensed/ ventricular sensed at 63 bpm. ATRIAL ARRHYTHMIAS: ??Since last remote transmission none. VENTRICULAR ARRHYTHMIAS: ??None. ?PVC Captiva: Since 06/19/22 Total PVCs burden was 7303 BATTERY LONGEVITY: Expected battery longevity trends reviewed and are stable and consistent with device settings and use. SUMMARY: All device function appears normal. FOLLOW UP: Next routine follow-up will be in 3 months via Latitude. DEVICE RN: Kylah Bernal Provider statement: This patient underwent device interrogation. I agree that the device interrogation was medically indicated to provide appropriate care and continue routine device interrogations as indicated. Preet Daugherty M.D., M.P.H. CV IMPLANTAB LE CARDIAC DEVICE documented in this encounter Visit Diagnoses Diagnosis Aftercare Cardiac Defibrillator documented in this encounter Care Teams Sugar Mixer Relationship Specialty Start Date End Date Elsewhere, Pcp PCP - General Internal Medicine 11/04/22 documented as of this encounter
--- OUTSIDE RECORDS SUMMARY | 2023-07-30 11:07 | XMS_ITS | Encounter Summary ---
Author Name Unknown Organization [facility] Address [address] [place] [address] Care Team Providers Care Agricultural Equipment Salesperson Name Role Phone Elsewhere, Pcp Primary Care Provider Unavailabl e Encounter Details Date Type Department Care Team (Latest Contact Info) Description 12/16/2022 11:41 AM CDT - 12/16/2022 11:59 PM CDT Hospital Encounter Department of Laboratory Medicine in [place], [place] [address] [address] Melody Dorado, AMBAR, C.N.P. [address] [address] Preoperative Exam Discharge Disposition: Home or Self Care Social [...] often do you attend chur ch or yarsani services? Never 09/21/2022 Do you belong to any clubs o r organizations such as uatsdin groups, unions, fraternal or athletic groups, or [...] Answer Date Recorded PHQ-2 Score 2 11/01/2022 [facility] of Occupat ional Health - [...] your living situation today? I have a [facility] place to live 12/12/2022 Education Answer Date Recorded What is the highest level of school you have completed or the highest degree you have received? 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 Gender Identity Female 03/25/2018 1:18 PM CDT [...] Procedure Name Priority Date/Time Associated Diagnosis Comments CBC WITH DIFFERENTIAL, B Routine 12/16/2022 11:57 AM CDT Preoperative Exam BASIC METABOLIC PANEL, S/P Routine 12/16/2022 11:57 AM CDT Preoperative Exam documented in this encounter Results * (ABNORMAL) Basic Metabolic Panel (12/16/2022 11:57 AM CDT) Potassium, P 5.6(H) 3.6 - 5.2 mmol/L 12/16/2022 12:24 PM CDT OWAT Sodium, P 143 135 - 145 mmol/L 12/16/2022 12:24 PM CDT OWAT Chloride, P 103 98 - 107 mmol/L 12/16/2022 12:24 PM CDT OWAT Bicarbonate, P 28 22 - 29 mmol/L 12/16/2022 12:24 PM CDT OWAT Anion Gap, P 12 7 - 15 12/16/2022 12:24 PM CDT OWAT BUN (Blood Urea Nitrogen), P 19 6 - 21 mg/dL 12/16/2022 12:24 PM CDT OWAT Creatinine 0.66 0.59 - 1.04 mg/dL 12/16/2022 12:24 PM CDT OWAT Estimated GFR (eGFR) >90 >=60 mL/min/BSA 12/16/2022 12:24 PM CDT OWAT Comment: Estimated GFR calculated using the 2020 CKD_EPI creatinine equation. Calcium, Total, P 10.1 8.8 - 10.2 mg/dL 12/16/2022 12:24 PM CDT OWAT Glucose, P 106 70 - 140 mg/dL 12/16/2022 12:24 PM CDT OWAT Blood (Blood, Venous) 12/16/2022 11:57 AM CDT 12/16/2022 12:01 PM CDT Melody Dorado APRN C.NJohnPJohn LAB BLOOD A [facility] [address] [place] [address], [facility] OWAT [facility] [address] [place] [address] * (ABNORMAL) CBC with Differential, Blood (12/16/2022 11:57 AM CDT) Hemoglobin 13.4 11.6 - 15.0 g/dL 12/16/2022 12:09 PM CDT OWAT Hematocrit 43.0 35.5 - 44.9 % 12/16/2022 12:09 PM CDT OWAT Erythrocytes 4.34 3.92 - 5.13 x10(12)/L 12/16/2022 12:09 PM CDT OWAT MCV 99.1(H) 78.2 - 97.9 fL 12/16/2022 12:09 PM CDT OWAT RBC Distrib Width 13.5 12.2 - 16.1 % 12/16/2022 12:09 PM CDT OWAT Platelet Count 293 157 - 371 x10(9)/L 12/16/2022 12:09 PM CDT OWAT Leukocytes 6.7 3.4 - 9.6 x10(9)/L 12/16/2022 12:09 PM CDT OWAT Neutrophils 3.43 1.56 - 6.45 x10(9)/L 12/16/2022 12:09 PM CDT OWAT Lymphocytes 2.51 0.95 - 3.07 x10(9)/L 12/16/2022 12:09 PM CDT OWAT Monocytes 0.56 0.26 - 0.81 x10(9)/L 12/16/2022 12:09 PM CDT OWAT Eosinophils 0.13 0.03 - 0.48 x10(9)/L 12/16/2022 12:09 PM CDT OWAT Basophils 0.05 0.01 - 0.08 x10(9)/L 12/16/2022 12:09 PM CDT OWAT Blood (Blood, Venous) 12/16/2022 11:57 AM CDT 12/16/2022 12:01 PM CDT Melody Dorado APRN C.N.P. LAB BLOOD A [facility] [address] [place] [address], [facility] OWAT [facility] [place] [address] [place] [address] documented in this encounter Visit Diagnoses Diagnosis Preoperative Exam documented in this encounter Care Teams Agricultural Equipment Salesperson Relationship Specialty Start Date End Date Elsewhere, Pcp PCP - General Internal Medicine 11/04/22 documented as of this encounter
--- OUTSIDE RECORDS SUMMARY | 2023-07-30 11:07 | XMS_ITS | Encounter Summary ---
Author Name Unknown Organization [facility] Address [address] [place] [address] Care Team Providers Care Cost Coordinator Name Role Phone Elsewhere, Pcp Primary Care Provider Unavailabl e Encounter Details Date Type Department Care Team (Latest Contact Info) Description 12/09/2022 4:00 AM CDT - 12/09/2022 11:59 PM CDT Hospital Encounter Department of Cardiovascular Diseases in [place], [place] [address] [place] [address] Esa Stoddard M.B.B.S. [address] [place] [phone] Aftercare Cardiac Defibrillator Discharge Disposition: Home or Self Care Social History Tobacco Use Types Packs/Day Years Used Date Smoking Tobacco: Former Cigarettes 0.5 1 971 - 06/19/2022 Smokeless Tobacco: Never Alcohol Use Standard Drinks/Week Comments Not Currently 0 (1 standard drink = 0.6 oz pur e alcohol) Humiliation, Afraid, Rape, and Kick questionnair e Answer Date Recorded Within the last year, have y ou been afraid of your partner or ex-partner? No 09/21/2022 Within the last year, have y ou been humiliated or emotionally abused in other ways by your partner or ex-partner? No Within the last year, have y ou been kicked, hit, slapped, or otherwise physically hurt by your partner or ex-partner? No 09/21/2022 Within the last year, have y ou been raped or forced to have any kind of sexual activity by your partner or ex-partner? No 09/21/2022 Social Connection and Isolat ion Panel [NHANES] Answer Date Recorded In a typical week, how many times do you talk on the phone with family, friends, or neighbors? More than three times a week 09/21/2022 How often do you get togethe r with friends or relatives? Once a week 09/21/2022 How often do you attend chur ch or alevism services? Never 09/21/2022 Do you belong to any clubs o r organizations such as gnosticist groups, unions, fraternal or athletic groups, or [...] medical care, and heating? Not very hard 09/21/2022 PHQ-2 Answer Date Recorded PHQ-2 Score 2 11/01/2022 [facility] - Occupational [...] the money to buy more. Never true 09/22/19 Within the past 12 months, t he food you bought just didn't last and you didn't have money to get more. Never true 09/21/2022 PRAPARE - Transportation Answer Date Re corded In the past 12 months, has l ack of transportation kept you from medical appointments or from getting medications? No 11/2022 In the past 12 months, has l ack of transportation kept you from meetings, work, or from getting things needed for daily living? No 09/21/2022 Housing Stability Vital Sign Answer Jeremy e Recorded In the last 12 months, was t here a time when you were not able to pay the mortgage or rent on time? No 09/21/2022 In the last 12 months, how many places have you lived? 1 09/21/2022 In the last 12 months, was t here a time when you did not have a steady place to sleep or slept in a jail (including now)? No 09/21/2022 Nutrition Answer Date Recorded Nutrition: EVOO Fat Source No 09/21 On average, how many serving s of fruits and vegetables do you eat per day (serving size is equal to 1 cup or approximately the size of a tennis ball)? 2-3 09/21/2022 Dental Answer Date Recorded Dental: Regular Dentist Yes 09/22/19 Employment Answer Date Recorded Employment status Retired 09/21/2022 Education Answer Date Recorded What is the highest level of school you have completed or the highest degree you have received? Associate degree: occupational, technical, or vocational program 09/21/2022 Sex and Gender Information Value Date Recorded Sex Assigned at Female 09/21/2022 2:32 PM CIGAR BINDER Gender Identity Female 03/25/2018 1:18 PM CDT [...] Diagnosis Comments ICD REMOTE FOLLOW UP Routine 12/11/2022 2:07 PM CDT Aftercare Cardiac Defibrillator documented in this encounter Results * ICD REMOTE FOLLOW UP (12/11/2022 2:07 PM CDT) Date Time Interrogation Session [id number] [facility] Implantable Pulse Generator Narrow Gauge Operator [employer] [facility] Implantable Pulse Generator Model D153 DYNAGEN [facility] Implantable Pulse Generator Serial Number [id number] [facility] Type Interrogation Session Remote [facility] Clinic Name [facility] Implantable Pulse Generator Type Defibrillator [facility] Implantable Pulse Generator Implant Date [id number] [facility] Implantable Lead Narrow Gauge Operator Guidant [facility] Implantable Lead Model 0185 [employer] [place] G [facility] Implantable Lead Serial Number [id number] [facility] Implantable Lead Implant Date [id number] [facility] Implantable Lead Polarity Type Tripolar Lead [facility] Implantable Lead Location Detail 1 Endocardial [facility] Implantable Lead Special Function Lead length: 64 cm [facility] Implantable Lead Location Right Ventricle [facility] Implantable Lead Narrow Gauge Operator Guidant [facility] Implantable Lead Model 4087 Flextend [facility] Implantable Lead Serial Number [id number] [facility] Implantable Lead Implant Date [id number] [facility] Implantable Lead Polarity Type Bipolar Lead [facility] Implantable Lead Location Detail 1 Endocardial [facility] Implantable Lead Special Function Lead length: 52 cm [facility] Implantable Lead Location Right Atrium [facility] Hernandez Setting Mode (NBG Code) DDD [facility] Hernandez Setting Lower Rate Limit 50 {beats}/ min [facility] Hernandez Setting Maximum Tracking Rate 100 {beats}/ min [facility] Hernandez Setting Maximum Sensor Rate 100 {beats}/ min [facility] Hernandez Setting [place] Delay Low 300 ms [facility] Hernandez Setting PAV Delay Low 300 ms [facility] Hernandez Setting PAV Delay High 200 ms [facility] Hernandez Setting [place] Delay High 200 ms [facility] Hernandez Setting AT Mode Switch Rate 170 {beats}/ min [facility] Hernandez Setting AT Mode Switch Mode DDIR [facility] Lead Channel Setting Sensing Polarity Bipolar [facility] Lead Channel Setting Sensing Sensitivity 0.7 mV [facility] Lead Channel Setting Sensing Adaptation Mode Adaptive [facility] Lead Channel Setting Sensing Polarity Bipolar [facility] Lead Channel Setting Sensing Sensitivity 0.4 mV [facility] Lead Channel Setting Sensing Adaptation Mode Adaptive [facility] Lead Channel Setting Pacing Polarity Bipolar [facility] Lead Channel Setting Pacing Pulse Width 0.4 ms [facility] Lead Channel Setting Pacing Amplitude 2.0 V [facility] Lead Channel Setting Pacing Capture Mode Fixed Pacing [facility] Lead Channel Setting Pacing Polarity Bipolar [facility] Lead Channel Setting Pacing Pulse Width 0.4 ms [facility] Lead Channel Setting Pacing Amplitude 2.0 V [facility] Lead Channel Setting Pacing Capture Mode Fixed Pacing [facility] Zone Setting Type Category VF [facility] Zone Setting Detection Interval 273 ms [facility] Zone Setting Type Category VT [facility] Zone Setting Detection Interval 353 ms [facility] Lead Channel Impedance Value 489 ohm [facility] Lead Channel Impedance Value 424 ohm [facility] Battery Date Time of Measurements [facility] Battery Status Beginning of Service [facility] Battery Remaining Longevity 126 mo [facility] Battery Remaining Percentage 100 % [facility] Capacitor Charge Type Reformation [facility] Capacitor Last Charge Date Time [facility] Capacitor Charge Time 10.7 s [facility] Hernandez Statistic Date Time Start [facility] Hernandez Statistic Date Time End [facility] Hernandez Statistic RA Percent Paced 0 % [facility] Hernandez Statistic RV Percent Paced 0 % [facility] Atrial Tachy Statistic Date Time Start [facility] Atrial Tachy Statistic Date Time End [facility] Atrial Tachy Statistic AT/AF [place] Percent 1 % [facility] Therapy [...] EGM [facility] Episode Date Time [facility] Episode Type Category VT [facility] Episode Vendor Type Category VT [facility] Episode Date Time [id number] [facility] Episode Duration 18 s [facility] Episode Type Category AT/AF [facility] Episode Date Time [id number] [facility] Episode Duration 4 s [facility] Anatomical Region Laterality Modality Other 12/09/2022 3:11 AM CDT Narrative 12/22/2022 2:03 PM CDT PURPOSE OF VISIT: ??Routine ICD remote transmission PRESENTING EGM: ??Atrial and ventricular sensing around 70 bpm ATRIAL ARRHYTHMIAS: ??Since last follow up on 09/09/22, device reports 2 atrial high rate episodes. ??Review of EGMs show 6-9 seconds of atrial tach/flutter. VENTRICULAR ARRHYTHMIAS: ??Review of EGM shows atrial tach/SVT at 183 bpm lasting for 18 seconds. ?PVC [place]: Total PVC count over the last 172 days is 394 BATTERY LONGEVITY: Expected battery longevity trends reviewed and are stable and consistent with device settings and use. SUMMARY: All device function appears normal. FOLLOW UP: Next routine follow-up will be in 3 months via Unmetric remote transmission DEVICE RN: Estrellita Espino RN Provider statement: This patient underwent device interrogation. I agree that the device interrogation was medically indicated to provide appropriate care and continue routine device interrogations as indicated. Esa QuesadaB.S. CV IMPLANTA BLE CARDIAC DEVICE documented in this encounter Visit Diagnoses Diagnosis Aftercare Cardiac Defibrillator documented in this encounter Care Teams Cost Coordinator Relationship Specialty Start Date End Date Elsewhere, Pcp PCP - General Internal Medicine 11/04/22 documented as of this encounter
--- OUTSIDE RECORDS SUMMARY | 2023-07-30 11:07 | XMS_ITS | Encounter Summary ---
Author Name Unknown Organization [facility] Address [address] [place] [address] Care Team Providers Care Corral Boss Name Role Phone Elsewhere, Pcp Primary Care Provider Unavailabl e Reason for Visit * Reason Onset Date Comments Symptom Assessment 02/01/2023 Urinary Frequency 02/01/2023 Encounter Details Date Type Department Care Team (Late st Contact Info) Description 02/01/2023 Nurse Triage Department of Family Medicine, [facility], in [place], [place] [address] [place] [address] Maranda Patel M.S.N., R.N. [address] [place] [phone] Symptom Assessment; Urinary Frequency Social History Tobacco Use Types Packs/Day Years [...] often do you attend chur ch or samaritan services? Never 09/21/2022 Do you belong to any clubs o r organizations such as taoism groups, unions, fraternal or athletic groups, or [...] Answer Date Recorded PHQ-2 Score 2 11/01/2022 [facility] - Occupational Stress Questionnaire Answer Date [...] your living situation today? I have a [facility] place to live 12/12/2022 Education Answer Date Recorded What is the highest level of school you have completed or the highest degree you have received? Associate degree: occupational, technical, or vocational program 09/21/2022 Sex and Gender Information Value Date Recorded Sex Assigned at Female 09/21/2022 2:32 PM INTERNATIONAL GUEST COORDINATOR Gender Identity Female 03/25/2018 1:18 PM CDT Sexual Orientation Straight 03/25/2018 1: 18 PM CDT documented as of this encounter Miscellaneous Notes * Telephone Encounter - Patel, Jojo IrbyS.N., R.N. - 02/01/2023 2:47 PM CDT Chief Complaint / Reason for Call Patient is a 67 y.o. female calling regarding Symptom Assessment and Urinary Frequency. Assessment Concern: Frequency, urgency, dysuria, hematuria. History: Bilateral knee replacements (left knee 12/25/2022, right knee 11/12/2022) and a right hip closed reduction internal fixation femoral neck 09/10/2022. Present for: Started this morning. Home cares tried: Patient is calling nurse line for treatment/advice Calling to request: See above The recommended disposition is See a health care provider within 4 hours. Patient was transferred to the appointment desk and got an appointment to be seen yet this afternoon for her symptoms. Care Advice Patient/Caregiver understands and will follow care advice?: Yes, able to teach back SEE HCP WITHIN 4 HOURS: CALL BACK IF: * You become worse CARE ADVICE given per Urination Pain - Female (Adult) guideline. Patient was warm transferred to, Lisa Montoya [facility], Patient Appointment Employee Development Specialist at the clinic for further assistance. Reason for Disposition Diabetes mellitus or weak immune system (e.g., HIV positive, cancer chemo, splenectomy, organ transplant, chronic steroids) Protocols used: Urination Pain - [id number] documented in this encounter Plan of Treatment Not on file documented as of this encounter Visit Diagnoses Not on filedocumented in this encounter Care Teams Corral Boss Relationship Specialty Start Date End Date Elsewhere, Pcp PCP - General Internal Medicine 11/04/22 documented as of this encounter
--- OUTSIDE RECORDS SUMMARY | 2023-07-30 11:07 | XMS_ITS | Encounter Summary ---
Author Name Unknown Organization [facility] Address [address] [place] [address] Care Team Providers Care Cena Name Role Phone Elsewhere, Pcp Primary Care Provider Unavailabl e Encounter Details Date Type Department Care Team (Late st Contact Info) Description 01/26/2023 Orders Only Department of Orthopedic Surgery in [place], [place] [address] [phone] Lawrence Arita M.D. [address] [phone] Arthroplasty Total Knee Replacement Status Post Left (Primary Dx) Social History Tobacco Use Types [...] often do you attend chur ch or anabaptist services? Never 09/21/2022 Do you belong to any clubs o r organizations such as protestant groups, unions, fraternal or athletic groups, or [...] Answer Date Recorded PHQ-2 Score 2 11/01/2022 [facility] - Occupational [...] living situation today? I have a [facility] place to live 12/12/2022 Education Answer Date Recorded What is the highest level of school you have completed or the highest degree you have received? Associate degree: occupational, technical, or vocational program 09/21/2022 Sex and Gender Information Value Date Recorded Sex Assigned at Female 09/21/2022 2:32 PM CERAMIC RESTORER Gender Identity Female 03/25/2018 1:18 PM CDT Sexual Orientation Straight 03/25/2018 1: 18 PM CDT documented as of this encounter Plan of Treatment Not on file documented as of this encounter Visit Diagnoses Diagnosis Arthroplasty Total Knee Replacement Status Post Left- Primary documented in this encounter Care Teams Cena Relationship Specialty Start Date End Date Elsewhere, Pcp PCP - General Internal Medicine 11/04/22 documented as of this encounter
--- OUTSIDE RECORDS SUMMARY | 2023-07-30 11:07 | XMS_ITS | Encounter Summary ---
Author Name Unknown Organization [facility] Address [address] [place] [address] Care Team Providers Care Beam Doffer Name Role Phone Elsewhere, Pcp Primary Care Provider Unavailabl e Reason for Visit * Reason Comments Pre-op Exam * Outpatient (Routine) - Closed Specialty Diagnoses / Procedures Referred By Inderjit brown Referred To Contact Family Medicine Diagnoses Primary Osteoarthritis Knee Left Milton Mckeon, P.A.-C. [address] [address] [facility] Referral ID Status Reason Start Date Expiration Date Visits Re quested Visits Authorized [id number] Closed 11/26/2022 11/26/2023 1 1 Encounter Details Date Type Department Care Team (Latest Contact Info) Description 12/16/2022 11:00 AM CDT Office Visit Department of Family Medicine, [facility], in [place], [place] [address] [place] [address] Melody Dorado APRN, C.N.P. [address] [address] Preoperative Exam (Primary Dx); Primary Osteoarthritis Knee Left; Tachycardia Ventricular Nonsustained (HCC) Social History Tobacco Use Types Packs/Day Years [...] any clubs o r organizations such as islam groups, unions, fraternal or athletic groups, or [...] Answer Date Recorded PHQ-2 Score 2 11/01/2022 [facility] - Occupational Stress Questionnaire Answer Date [...] your living situation today? I have a [facility] place to live 12/12/2022 Education Answer Date Recorded What is the highest level of school you have completed or the highest degree you have received? Associate degree: occupational, technical, or vocational program 09/21/2022 Sex and Gender Information Value Date Recorded Sex Assigned at Female 09/21/2022 2:32 PM STAFF COUNSEL Gender Identity Female 03/25/2018 1:18 PM CDT Sexual Orientation Straight 03/25/2018 1: 18 PM CDT documented as of this encounter Last Filed Vital Signs Vital Sign Reading Time Taken Comments Blood Pressure 138/84 12/16/2022 11:33 AM CDT Pulse 65 12/16/2022 10:36 AM CDT Temperature 36.1 ??C (97 ??F) 12/16/2022 10:36 AM CDT Respiratory Rate - - Oxygen Saturation - - Inhaled Oxygen Concentration - - Weight 87.8 kg (193 lb 9 oz) 12/16/2022 10:36 AM CDT Height - - Body Mass Index 27.53 11/04/2022 3:57 PM CDT documented in this encounter H&P Notes * Melody Dorado APRN, C.N.P., M.S.N. - 12/16/2022 11:00 AM CDT SUBJECTIVE CHIEF COMPLAINT/REASON FOR CONSULT Chief Complaint Patient presents with Pre-op Exam Suzi Rutledge is a 67 y.o. y.o. female who presents today for a pre- operative consultation at the request of Dr. Arita who plans on performing Left Total Knee Arthroplasty on the following date: 12/25/22 at [facility]. Based on information from the patient, the surgery has minimal risk. Procedure is: Intermediate Risk (cardiac risk <5%): CEA, head/neck surgery, intraabdominal or intrathoracic surgery, orthopedic surgery, prostate surgery RISK STRATIFICATION Functional status: Functional Class II: Able to perform 5-7 METS (walk > 4 blocks or climb over 2 flights without cardiac or pulmonary Sx) Revised [Clements] Cardiac Risk Index (RCRI) Hx ischemic heart disease: NO (Hx AK, Hx positive exercise test, current complaint of chest pain c/w myocardial ischemia, use of nitrate therapy, or ECG with pathological Q waves) (Do not count prior coronary revascularization procedure unless one of the other criteria for ischemic heart disease is present) Hx heart failure: NO (History of congestive heart failure, Pulmonary edema, PND, Bilateral rales, S3 gallop, or CXR withpulmonary vascular redistribution) Hx cerebrovascular disease (stroke or TIA): NO Diabetes requiring perioperative insulin use: NO CKD (stage 3 or creatinine >2.0) : NO High-risk surgery type: NO (e.g., supra-inguinal vascular surgery, intra-peritoneal surgery, or intra- thoracic surgery) RCRI Score = 0 RCRI estimated risk of concha-operative cardiac , non-fatal AK, or non-fatal cardiac arrest: 0 Predictors (0.4% risk of major cardiac event) [place]ADEF[place]ILUC[place] Checklist: A (Allergies): YES B (Bleeding tendency, personal or family):NO Recent aspirin, plavix, or warfarin use: YES, Eliquis due to Brugada Syndrome and SVT. Will hold for 5 days C (Cardiac history*, recent Corticosteroids, Cervical spine problems): NO D (Diabetes): YES, on Metformin last a1c 5.8 E (Embolic/stroke or clotting history): NO F (Family Hx anesthesia complications, personal or family): NO G (Glaucoma, GERD): NO H (Hepatitis or HIV risk): NO I (Intubation difficulties) Mallampati Score (Seated, neck in neutral position, tongue fully protruded without phonation): II (hard and soft palate, upper portion of tonsils anduvula visible) N (pre-existing Neuro deficits): NO O (Obstructive sleep apnea): YES CARDIOVASCULAR HISTORY cardiovascular history Defibrillator due to history Brugada syndrome and SVT Stent in the past 12 months: NO History of bacterial endocarditis: NO History of heart valve replacement: NO PULMONARY HISTORY: Pulmonary History Smoking history - Quit in June Oxygen use: NO OTHER HISTORY Other Medical History hypertension on treatment History of joint replacement: YES Need antibiotics prior to surgery or dental procedures: NO Recent illnesses: NO Recent antibiotic use: NO History of MRSA skin infections: NO Smoker: NOT CURRENTLY quit in June Alcohol use: NO Illicit drug use: NO : NO Glasses/Contacts: YES Hearing aids: NO Dentures/Dental issues: YES REVIEW OF SYSTEMS The following systems were negative: Constitutional, Skin, Eyes, ENT, Respiratory, Cardiovascular, Gastrointestinal, Genitourinary, Hematologic, Musculoskeletal, Neurological, Psychiatric PAST MEDICAL/SURGICAL HISTORY Patient Active Problem List Diagnosis Tachycardia Ventricular Nonsustained (HCC) Postlaminectomy Syndrome Lumbar Presence Of Automatic (Implantable) Cardiac Defibrillator With Synchronous Cardiac Pacemaker (ICD And AICD) Brugada Syndrome (HCC) Cellulitis Depression Diabetes Mellitus Type 2 (HCC) Dysphagia Fever Postprocedural Fracture Femur Neck Closed Initial Right (HCC) Gastroesophageal Reflux Disease Hyperlipidemia Hypertension Insomnia Loss Hearing Right Obesity Unspecified Primary Osteoarthritis Knee Bilateral Pain Hip Left Pain Knee Right Pain Low Back Chronic Pneumonia Spinal Stenosis Lumbar Region Without Neurogenic Claudication Sprain Knee Anterior Cruciate Ligament Initial Right Stress Incontinence Female Male Past Surgical History: Procedure Laterality Date CATH ICD Left 06/20/2019 Procedure: ICD GENERATOR CHANGE - DUAL; Surgeon: Fareed Alvarez M.D.; Location: [facility] CATH ICD N/A 06/20/2019 Procedure: ICD Generator Change; Surgeon: Fareed Alvarez M.D.; Location: [facility] HYSTERECTOMY 2001 JOINT REPLACEMENT JOINT REPLACEMENT 1999 OOPHORECTOMY, PARTIAL OR TOTAL, UNILATERAL OR BILATERAL;.. 2001 OTHER SURGICAL HISTORY R hip fx with surgical repair PACEMAKER, EPICARDIAL SPINE SURGERY 2011 2012 2014 2016 THYROID SURGERY 2010 Left removed TUBAL LIGATION 2001 FAMILY HISTORY Family History Problem Relation Age of Onset Hypertension Father Parkinson disease Father Dementia Father Lewy Body Alcohol abuse Father Prevalent on both sides of family Hyperlipidemia Mother Other cancer Mother Polycythemia vera Arthritis Mother Migraines Mother Stress related Colon cancer Maternal Grandfather Clotting disorder Daughter ADD Son SOCIAL HISTORY Social History Tobacco Use Smoking status: Former Packs/day: 0.50 Years: 52.00 Pack years: 26.00 Types: Cigarettes Start date: 07/20/1970 Quit date: 06/19/2022 Years since quittin.4 Smokeless tobacco: Never Vaping Use Vaping Use: never used Substance Use Topics Alcohol use: Not Currently Drug use: Not Currently MEDICATIONS Current Outpatient Medications Medication Sig acetaminophen (TYLENOL) 500 mg tablet Take 2 tablets by mouth 3 (three) times a day. amitriptyline (ELAVIL) 25 mg tablet Take 1 tablet by mouth at bedtime. atorvastatin (LIPITOR) 40 mg tablet Take 1 tablet by mouth daily. celecoxib (CeleBREX) 200 mg capsule Take 200 mg by mouth daily. Eliquis 5 mg tablet Take 5 mg by mouth 2 (two) times a day. gabapentin (NEURONTIN) 600 mg tablet Take 2 tablets by mouth 3 (three) times a day. L. acidophilus/pectin, citrus (ACIDOPHILUS PROBIOTIC ORAL) Take 1 capsule by mouth daily. LACTOBACILLUS ACIDOPHILUS ORAL Take 1 capsule by mouth daily. lisinopril (PRINIVIL,ZESTRIL) 5 mg tablet Take 1 tablet by mouth daily. metFORMIN (GLUCOPHAGE) 500 mg tablet Take 1 tablet by mouth 2 (two) times a day. metoprolol tartrate (LOPRESSOR) 50 mg tablet Take 1 tablet by mouth 2 (two) times a day. oxyCODONE (ROXICODONE) 5 mg immediate release tablet TAKE 4 TABLETS BY MOUTH FOUR TIMES DAILY NEEDED FOR CHRONIC KNEE PAIN varenicline (Chantix) 1 mg tablet Take 1 mg by mouth 2 (two) times a day with meals. venlafaxine XR (EFFEXOR-XR) 150 mg 24 hr capsule Take 150 mg by mouth daily with breakfast. Total of 225mg venlafaxine XR (EFFEXOR-XR) 75 mg 24 hr capsule Take 75 mg by mouth daily with breakfast. HYDROcodone-acetaminophen (NORCO) 5-325 mg per tablet Take 1 tablet by mouth. ALLERGIES Allergies Allergen Reactions Bupropion Anxiety peeling creepy inside skin Morphine Rash OBJECTIVE BP 138/84 (BP Location: Right arm, Patient Position: Sitting, Cuff Size: Regular) Pulse 65 Temp36.1 ??C (Temporal) Wt 87.8 kg BMI 27.53 kg/m?? PHYSICAL EXAMINATION Vitals reviewed. Constitutional General: She is not in acute distress. Appearance: Normal appearance. She is not ill-appearing. HENT Head: Normocephalic. Right Ear: Tympanic membrane, ear canal and external ear normal. Left Ear: Tympanic membrane, ear canal and external ear normal. Nose: Nose normal. Mouth/Throat: Mouth: Mucous membranes are moist. Pharynx: Oropharynx is clear. Eyes Conjunctiva/sclera: Conjunctivae normal. Pupils: Pupils are equal, round, and reactive to light. Neck Thyroid: No thyromegaly or thyroid tenderness. Vascular: No carotid bruit. Trachea: Trachea normal. Cardiovascular Rate and Rhythm: Normal rate and regular rhythm. Heart sounds: Normal heart sounds, S1 normal and S2 normal. No murmur heard. No friction rub. No gallop. No S3 or S4 sounds. Pulmonary Effort: Pulmonary effort is normal. No respiratory distress. Breath sounds: Normal breath sounds. No wheezing, rhonchi or rales. Abdominal General: Abdomen is flat. Bowel sounds are normal. There is no distension. Palpations: Abdomen is soft. There is no hepatomegaly, splenomegaly or mass. Tenderness: There is no abdominal tenderness. Genitourinary General: Normal vulva. Musculoskeletal General: Normal range of motion. Cervical back: Normal range of motion and neck supple. No muscular tenderness. Right lower leg: No edema. Left lower leg: No edema. Lymphadenopathy Cervical: No cervical adenopathy. Right cervical: No superficial, deep or posterior cervical adenopathy. Left cervical: No superficial, deep or posterior cervical adenopathy. Skin General: Skin is warm and dry. Neurological General: No focal deficit present. Mental Status: She is alert and oriented to person, place, and time. Cranial Nerves: Cranial nerves 2-12 are intact. Psychiatric Mood and Affect: Mood normal. Behavior: Behavior normal. Thought Content: Thought content normal. Judgment: Judgment normal. DIAGNOSTICS CBC and BMP ordered today ASSESSMENT / PLAN 1. Preoperative Exam 2. Primary Osteoarthritis Knee Left PLAN: Patient medically acceptable for planned procedure - See ALEN in HPI above. The patient is deemed to have a medically satisfactory risk profile for the planned surgical procedure, and of low risk of a concha-operative cardiac event. Patient is capable of >4 METS activity without unusual dyspnea or chest pain, no additional cardiac testing is needed. We reviewed medications to avoid taking prior to the procedure, including avoiding aspirin, NSAIDs, and herbal medications for at least 1 week prior to surgery. The patient knows to be fasting after midnight the day of surgery. Further preoperative and postoperative recommendations will be given prior to surgery by surgeon. Patient will followup with me as needed. Melody Dorado APRN, C.N.P., M.S.N. documented in this encounter Plan of Treatment Not on file documented as of this encounter Results * (ABNORMAL) Basic Metabolic Panel (12/16/2022 11:57 AM CDT) [facility] Potassium, P 5.6(H) 3.6 - 5.2 mmol/L [...] CDT 12/16/2022 12:01 PM CDT Melody Dorado APRN, C.N.P. LAB BLOOD A DD-ON [facility] [address] [place] [id number], [facility] in [place] [address] [place] [phone] * (ABNORMAL) CBC with Differential, Blood (12/16/2022 [...] 11:57 AM CDT 12/16/2022 12:01 PM CDT Sheldon Serra APRNNIngrid LAB BLOOD A DD-ON [facility] [address] [place] [id number], [facility] in [place] [address] [place] [address] documented in this encounter Visit Diagnoses Diagnosis Preoperative Exam- Primary Primary Osteoarthritis Knee Left Tachycardia Ventricular Nonsustained (HCC) documented in this encounter Care Teams Beam Doffer Relationship Specialty Start Date End Date Elsewhere, Pcp PCP - General Internal Medicine 11/04/22 documented as of this encounter
--- OUTSIDE RECORDS SUMMARY | 2023-07-30 11:07 | XMS_ITS | Encounter Summary ---
Author Name Unknown Organization [facility] Address [address] [place] [address] Care Team Providers Care Wire Bound Box Machine Helper Name Role Phone Elsewhere, Pcp Primary Care Provider Unavailabl e Reason for Referral * MRI/CAT/PET Scan (Routine) - Closed Specialty Diagnoses / Procedures Referred By Luchoac t Referred To Contact Radiology Diagnoses Primary Osteoarthritis Knee Left Procedures CT Knee Left without IV Contrast ND CT LWR EXT WO Milton Boo, P.A.-C. [address], [place] [address] [facility] Region Referral ID Status Reason Start Date Expiration Date Visits Re quested Visits Authorized [id number] Closed 12/11/2022 01/10/2023 1 1 Reason for Visit * MRI/CAT/PET Scan (Routine) - Closed Specialty Diagnoses / Procedures Referred By Contac t Referred To Contact Radiology Diagnoses Primary Osteoarthritis Knee Left Procedures CT Knee Left without IV Contrast ND CT LWR EXT WO Milton Boo P.A.-C. [address] [place] [address] [facility] Region Referral ID Status Reason Start Date Expiration Date Visits Re quested Visits Authorized [id number] Closed 12/11/2022 01/10/2023 1 1 Encounter Details Date Type Department Care Team (Latest Contact Info) Description 12/11/2022 9:07 AM CDT - 12/11/2022 11:59 PM CDT Hospital Encounter Department of Radiology in [place], [place] [address] [phone] Milton Mckeon P.A.-C. [address] [place] [phone] Primary Osteoarthritis Knee Left Discharge Disposition: Home or Self Care Social [...] How often do you attend chur or pentecostalism services? Never 09/21/2022 Do you belong to any clubs o r organizations such as tenriism groups, unions, fraternal or athletic groups, or [...] Answer Date Recorded PHQ-2 Score 2 11/01/2022 [facility] - Occupational [...] living situation today? I have a [facility] place to live 12/12/2022 Education Answer Date Recorded What is the highest level of school you have completed or the highest degree you have received? 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 Gender Identity Female 03/25/2018 1:18 PM CDT [...] Procedure Name Priority Date/Time Associated Diagnosis Comments CT KNEE LEFT WITHOUT IV CONTRAST RAD - Routine (most inpatients and all outpatients) 12/11/2022 9:33 AM CDT Primary Osteoarthritis Knee Left documented in this encounter Results * CT Knee Left without IV Contrast (12/11/2022 9:33 AM CDT) Anatomical Region Laterality Modality Lower Extremity, Knee, Muscu loskeletal RST LOS, Musculoskeletal ARZ LOS, Muskuloskeletal FLA LOS Left Compu katie Tomography 12/11/2022 9:49 AM CDT Impressions 12/11/2022 9:[address] performed for presurgical planning. Narrative 12/11/2022 9:52 AM CDT EXAM: ??CT KNEE LEFT WITHOUT IV CONTRAST No 3D post-processing performed. COMPARISON: ??None FINDINGS: ??[facility] CT performed for presurgical planning. Moderate knee joint effusion. Tricompartmental degenerative changes of the knee with joint space narrowing and osteophytosis. Atherosclerotic vascular disease. Left hip arthroplasty. Partially imaged lumbar spine hardware. Procedure Note Junito Boggs M.D. - 12/11/2022 EXAM: CT KNEE LEFT WITHOUT IV CONTRAST No 3D post-processing performed. COMPARISON: None FINDINGS: [facility] CT performed for presurgical planning. Moderate knee jointeffusion. Tricompartmental degenerative changes of the knee with joint spacenarrowing and osteophytosis. Atherosclerotic vascular disease. Left hip arthroplasty. Partially imagedlumbar spine hardware. IMPRESSION: CT performed for presurgical planning. Milton Mckeon P.A.-C. IMG CT PROCEDURE S documented in this encounter Visit Diagnoses Diagnosis Primary Osteoarthritis Knee Left documented in this encounter Care Teams Wire Bound Box Machine Helper Relationship Specialty Start Date End Date Elsewhere, Pcp PCP - General Internal Medicine 11/04/22 documented as of this encounter
--- OUTSIDE RECORDS SUMMARY | 2023-07-30 11:07 | XMS_ITS | Encounter Summary ---
Author Name Unknown Organization [facility] Address [address] [place] [address] Care Team Providers Care Manager Assurance Name Role Phone Elsewhere, Pcp Primary Care Provider Unavailabl e Reason for Visit * Outpatient (Routine) - Closed Specialty Diagnoses / Procedures Referred By Inderjit brown Referred To Contact Diagnoses Primary Osteoarthritis Knee Left Procedures DX Knee Left Standing 3 Views Milton Mckeon P.A.-C. [address] [place] [address] [facility] Referral ID Status Reason Start Date Expiration Date Visits Re quested Visits Authorized [id number] Closed 11/26/2022 11/26/2023 1 1 Encounter Details Date Type Department Care Team (Latest Contact Info) Description 02/09/2023 8:45 AM CDT - 02/09/2023 11:59 PM CDT Hospital Encounter Department of Radiology in [place], [place] [address] [place] [address] Lawrence Arita M.D. [address] [place] [address] Primary Osteoarthritis Knee Right; Primary Osteoarthritis Knee Left Discharge Disposition: Home [...] often do you attend chur ch or orthodoxy services? Never 09/21/2022 Do you belong to [...] Answer Date Recorded PHQ-2 Score 2 11/01/2022 [facility] - Occupational Stress [...] your living situation today? I have a [facility] to live 12/12/2022 Education Answer Date Recorded What is the highest level of school you have completed or the highest degree you have received? 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 Gender Identity Female 03/25/2018 1:18 PM [...] Name Priority Date/Time Associated Diagnosis Comments DX KNEE BILATERAL STANDING 3 VIEWS RAD - Routine (most inpatients and all outpatients) 02/09/2023 9:40 AM CDT Primary Osteoarthritis Knee Right documented in this encounter Results * DX Knee Bilateral Standing 3 Views (02/09/2023 9:40 AM CDT) Anatomical Region Laterality Modality Lower Extremity, Knee, Muscu loskeletal RST LOS, Musculoskeletal ARZ LOS, Muskuloskeletal FLA LOS Bilateral Digit al Radiography 02/09/2023 9:47 AM CDT Impressions 02/09/2023 9:48 AM CDT Postsurgical changes of bilateral total knee arthroplasty. No evidence for hardware complication. Narrative 02/09/2023 9:48 AM CDT EXAM: DX KNEE BILATERAL STANDING 3 VIEWS COMPARISON: None FINDINGS: Postsurgical changes of bilateral total knee arthroplasty. Arthroplasty components appear well seated. No evidence for fracture or dislocation. No patellar tilt or subluxation. Procedure Note Ashok Arreguin M.D. - 02/09/2023 EXAM: DX KNEE BILATERAL STANDING 3 VIEWS COMPARISON: None FINDINGS: Postsurgical changes of bilateral total knee arthroplasty. Arthroplastycomponents appear well seated. No evidence for fracture or dislocation. No patellar tilt orsubluxation. IMPRESSION: Postsurgical changes of bilateral total knee arthroplasty. No evidence forhardware complication. Lawrence Arita M.D. IMG DIAGNOSTIC IM AGING PROCEDURES documented in this encounter Visit Diagnoses Diagnosis Primary Osteoarthritis Knee Right Primary Osteoarthritis Knee Left documented in this encounter Care Teams Manager Assurance Relationship Specialty Start Date End Date Elsewhere, Pcp PCP - General Internal Medicine 11/04/22 documented as of this encounter
--- OUTSIDE RECORDS SUMMARY | 2023-07-30 11:07 | XMS_ITS | Encounter Summary ---
Author Name Unknown Organization [facility] Address [address] [place] [address] Care Team Providers Care Communications Senior Associate Name Role Phone Elsewhere, Pcp Primary Care Provider Unavailabl e Encounter Details Date Type Department Care Team (Late st Contact Info) Description 02/02/2023 Orders Only Department of Family Medicine, [facility], in [place], [place] [address] [phone] Tiffanie Smith, Marija.-Korina., P.A. 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 Gender Identity Female 03/25/2018 1:18 PM CDT Sexual Orientation Straight 03/25/2018 1: 18 PM CDT documented as of this encounter Plan of Treatment Scheduled Orders Name Type Priority Associated Diagnoses Orde r Schedule Urinalysis with Microscopic: Urine, Midstream Lab Routine Hematuria Expected: 02/23/2023 (Approximate), Expires: 05/05/2024 documented as of this encounter Visit Diagnoses Diagnosis Hematuria- Primary documented in this encounter Care Teams Communications Senior Associate Relationship Specialty Start Date End Date Elsewhere, Pcp PCP - General Internal Medicine 11/04/22 documented as of this encounter
--- OUTSIDE RECORDS SUMMARY | 2023-07-30 11:07 | XMS_ITS | Encounter Summary ---
Author Name Unknown Organization [facility] Address [address] [place] [address] Care Team Providers Care Lining Stitcher Name Role Phone Elsewhere, Pcp Primary Care Provider Unavailabl e Reason for Visit * Reason Comments Post-op Arthroplasty Follow-up * Outpatient (Routine) - Closed Specialty Diagnoses / Procedures Referred By Inderjit brown Referred To Contact Orthopedic Surgery Milton Mckeon P.A.-C. [address] [phone] [facility] Referral ID Status Reason Start Date Expiration Date Visits Re quested Visits Authorized [id number] Closed 11/26/2022 11/25/2025 1 1 Encounter Details Date Type Department Care Team (Late st Contact Info) Description 01/09/2023 10:45 AM CDT Office Visit Department of Orthopedic Surgery in [place], [place] [address] [phone] Milton Mckeon P.A.-C. [address] [phone] Arthroplasty Total Knee Replacement Status [...] often do you attend chur ch or jehovah's witness services? Never 09/21/2022 Do you belong to any clubs o r organizations such as catholic groups, unions, fraternal or athletic groups, or [...] Answer Date Recorded PHQ-2 Score 2 11/01/2022 [facility] Occupat ional Health - Occupational Stress [...] your living situation today? I have a [facility] place to live 12/12/2022 Education Answer Date Recorded What is the highest level of school you have completed or the highest degree you have received? 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 - 01/09/2023 10:45 AM CDT PRIMARY CARE PROVIDER ELSEWHERE, PCP CHIEF COMPLAINT/REASON FOR VISIT Two-week postop recheck of a left robotically assisted total knee arthroplasty performed by Dr. Arita on 12/25/2022. SUBJECTIVE HISTORY OF PRESENT ILLNESS Suzi Rutledge is a very pleasant female who presents today for 2 week postop recheck of aleft total knee arthroplasty performed by Dr. Arita on date listed above. The patient reports that she is doing well. She has had moderate pain following surgery, she is on chronic pain medications at home. she is in physical therapy 2 to 3 times per week without any complications. Motion is progressing appropriately. She denies any issues with her Aquacel dressing. She has had no significantdrainage. She denies any fever, chills, night sweats, nausea, or vomiting. OBJECTIVE PHYSICAL EXAMINATION MUSCULOSKELETAL: Continues to ambulate with 2 crutches. Examination of the left knee reveals the incision to be clean, dry, and intact without signs of infection following dressing removal. Neurovascularly intact distally. Capillary refill less than 2 seconds. Demonstrates range of motion of 5 to 100 degrees. ASSESSMENT / PLAN IMPRESSION/REPORT/PLAN Two weeks status post left total knee arthroplasty performed by Dr. Arita on date listed above. PLAN: Suzi Rutledge is doing well. At this point she will continue with therapy. She is very pleased with her knee pain and motion. We will plan on seeing her back in clinic in approximately 1 month for her recheck with Dr. Arita. We did discuss today that she can continue to shower. She should continue to monitor the incision for signs of infection. We did review those findings including drainage, redness, increased warmth, and sudden increase in pain. Wean off of pain medications as able. She will notify us of any concerns prior to her 6 week recheck appointment. All questions were answered to patient's satisfaction. documented in this encounter Plan of Treatment Not on file documented as of this encounter Visit Diagnoses Diagnosis Arthroplasty Total Knee Replacement Status Post Left- Primary documented in this encounter Care Teams Lining Stitcher Relationship Specialty Start Date End Date Elsewhere, Pcp PCP - General Internal Medicine 11/04/22 documented as of this encounter
--- OUTSIDE RECORDS SUMMARY | 2023-07-30 11:07 | XMS_ITS | Encounter Summary ---
Author Name Unknown Organization [facility] Address [address] [place] [address] Care Team Providers Care Supplier Quality Specialist Name Role Phone Elsewhere, Pcp Primary Care Provider Unavailabl e Reason for Visit * Outpatient (Routine) - Closed Specialty Diagnoses / Procedures Referred By Inderjit brown Referred To Contact Diagnoses Arthroplasty Total Knee Replacement Status Post Left Procedures DX Knee Left 2 Views DX Knee Left 3 Views Lawrence Arita M.D. [address], [place] [address] [facility] Referral ID Status Reason Start Date Expiration Date Visits Re quested Visits Authorized [id number] Closed 12/25/2022 12/25/2023 1 1 Encounter Details Date Type Department Care Team (Latest Contact Info) Description 12/25/2022 7:05 AM CDT - 12/25/2022 11:59 PM CDT Hospital Encounter Department of Radiology in [place], [place] [address] [place] [address] Lawrence Arita M.D. [address] [place] [phone] Arthroplasty Total Knee Replacement Status Post Left Discharge Disposition: Home or Self Care [...] often do you attend chur ch or pentecostal services? Never 09/21/2022 Do you belong to any clubs o r organizations such as pentecostal groups, unions, fraternal or athletic groups, or [...] Answer Date Recorded PHQ-2 Score 2 11/01/2022 [facility] of Occupat ional Health - Occupational Stress [...] your living situation today? I have a [facility] place to live 12/12/2022 Education Answer Date Recorded What is the highest level of school you have completed or the highest degree you have received? 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 Negative for postoperative purposes. Narrative 12/25/2022 1:39 PM CDT EXAM: ??DX KNEE LEFT 2 VIEWS Procedure Note Clint Hernandez M.D. - 12/25/2022 EXAM: DX KNEE LEFT 2 VIEWS IMPRESSION: Left TKA. Negative for postoperative purposes. Lawrence Arita M.D. IMG DIAGNOSTIC IM AGING PROCEDURES documented in this encounter Visit Diagnoses Diagnosis Arthroplasty Total Knee Replacement Status Post Left documented in this encounter Care Teams Supplier Quality Specialist Relationship Specialty Start Date End Date Elsewhere, Pcp PCP - General Internal Medicine 11/04/22 documented as of this encounter
--- OUTSIDE RECORDS SUMMARY | 2023-07-30 11:07 | XMS_ITS | Encounter Summary ---
Author Name Unknown Organization [facility] Address [address] [place] [address] Care Team Providers Care Rug Hooker Name Role Phone Elsewhere, Pcp Primary Care Provider Unavailabl e Reason for Visit * Reason Comments Blood in Urine Urinary Urgency Difficulty Urinating X 1 day * Appointment Request (Routine) - Closed Specialty Diagnoses / Procedures Referred By Contac t Referred To Contact Express or Urgent Care Referral ID Status Reason Start Date Expiration Date Visits Re quested Visits Authorized [id number] Closed 02/01/2023 02/01/2024 1 1 Encounter Details Date Type Department Care Team (Late st Contact Info) Description 02/01/2023 3:30 PM CDT Office Visit Department of Family Medicine, , in [place], [place] [address] [phone] Tiffanie Smith, PJohnA.-Korina., P.A. [address] [place] [phone] Hematuria (Primary Dx) Social History Tobacco Use [...] week 09/21/2022 How often do you attend [facility] or christianity services? Never 09/21/2022 Do you belong to any clubs o r organizations such as mosque groups, unions, fraternal or athletic groups, or [...] Answer Date Recorded PHQ-2 Score 2 11/01/2022 [facility] of Occupat ional Health - Occupational [...] your living situation today? I have a [facility] place to live 12/12/2022 Education Answer Date Recorded What is the highest level of school you have completed or the highest degree you have received? 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, P.A. - 02/01/2023 3:30 PM CDT SUBJECTIVE CHIEF COMPLAINT/REASON FOR VISIT Blood in Urine, Urinary Urgency, and Difficulty Urinating (X 1 day ) HISTORY OF PRESENT ILLNESS Suzi Rutledge is a 67 y.o. female who presents for evaluation of 1 day of hematuria, increased urinary frequency, dysuria. She reports it started when she woke up this morning. She denies flank pain, abdominal pain, fevers/chills. She has had UTIs in the past and this feels similar. Patient Active Problem List Diagnosis Tachycardia Ventricular [...] Ligament Initial Right Stress Incontinence Female Male CURRENT MEDICATIONS Current Outpatient Medications Medication Sig Dispense Refill acetaminophen (TYLENOL) 500 mg tablet Take 2 [...] TIMES DAILY NEEDED FOR CHRONIC KNEE PAIN venlafaxine XR (EFFEXOR-XR) 150 mg 24 hr capsule Take 150 mg by mouth daily with breakfast. Total of 225mg venlafaxine XR (EFFEXOR-XR) 75 mg 24 hr capsule Take 75 mg by mouth daily with breakfast. HYDROcodone-acetaminophen (NORCO) 5-325 mg per tablet Take 1 tablet by mouth. nitrofurantoin monohydrate (MACROBID) 100 mg capsule Take 1 capsule (100 mg total) by mouth 2 (two)times a day for 7 days. 14 capsule 0 varenicline (Chantix) 1 mg tablet Take 1 mg by mouth 2 (two) times a day with meals. No current facility-administered medications for this visit. ALLERGIES/CONTRAINDICATIONS Allergies Allergen Reactions Bupropion Anxiety peeling creepy inside skin Morphine Rash OBJECTIVE BP 131/74 (BP Location: Right arm, Patient Position: Sitting, Cuff Size: Large) Pulse 84 Temp 36 ??C (Temporal) Resp 16 Wt 88.7 kg BMI 27.81 kg/m?? PHYSICAL EXAMINATION General: No acute distress. Patient is polite and cooperative. Appropriately dressed and normal hygiene. Skin: No suspicious lesions or rash noted over exposed skin. HEENT: Normocephalic. Pupils equal, conjunctiva clear. Heart: Regular rate and rhythm. No murmurs, gallops or rubs noted. Lungs: Clear to auscultation bilaterally. No expiratory wheeze. No accessory muscles of respirationnoted. Abdomen: Nontender to palpation. No rebound or guarding. No hepatosplenomegaly. No mass. Normal bowel sounds. Musculoskeletal: No CVA Tenderness. Mental Health: Alert and oriented. Normal thought form and content. ASSESSMENT / PLAN #1 Hematuria - UA with gross hematuria without significant WBCs present. She does have bacteriuria. We discussedobtaining basic labs and CT abd/pelvis given the significant hematuria. This is declined. - Given symptoms, will treat empirically for UTI with Macrobid while we await culture results. If culture returns negative, will recommend CT imaging and Urology referral for further evaluation. - Patient was encouraged to increase fluids and get plenty of rest. - Reviewed red flag symptoms for which they would need to present to the emergency room. Otherwise should follow-up with their primary care provider if symptoms persist. Electronically signed by: Tiffanie Smith P.A.-C., P.A. 02/01/23 4:19 PM CDT documented in this encounter Plan of Treatment Not on file documented as of this encounter Procedures Procedure Name Priority Date/Time Associated Diagnosis Comments BACTERIAL CULTURE, AEROBIC + SUSC, URINE Routine 02/01/2023 3:14 PM CDT Hematuria URINALYSIS WITH MICROSCOPIC Routine 02/01/2023 3:14 PM CDT Hematuria documented in this encounter Results * (ABNORMAL) Urinalysis with Microscopic: Urine, Midstream (02/01/2023 3:14 PM CDT) Source Midstream 02/01/2023 3:24 PM CDT OWAT Clarity Bloody(A) Clear 02/01/2023 3:33 PM CDT OWAT Color Red(A) 02/01/2023 3:33 PM CDT OWAT Comment: ----REFERENCE VALUE---- Colorless Yellow Cherise Blood SEE COMMENT Negative 02/01/2023 3:33 PM CDT OWAT Comment:Unable to determine due to color interference Nitrite SEE COMMENT Negative 02/01/2023 3:33 PM CDT OWAT Comment:Unable to determine due to color interference Leukocyte Esterase SEE COMMENT Negative 02/01/2023 3:33 PM CDT OWAT Comment:Unable to determine due to color interference Protein SEE COMMENT mg/dL 02/01/2023 3:33 PM CDT OWAT Comment: Unable to determine due to color interference ----REFERENCE VALUE---- Negative Trace Glucose SEE COMMENT Negative mg/dL 02/01/2023 3:33 PM CDT OWAT Comment:Unable to determine due to color interference Ketone SEE COMMENT Negative mg/dL 02/01/2023 3:33 PM CDT OWAT Comment:Unable to determine due to color interference Bilirubin SEE COMMENT Negative 02/01/2023 3:33 PM CDT OWAT Comment:Unable to determine due to color interference pH SEE COMMENT 5.0 - 8.0 02/01/2023 3:33 PM CDT OWAT Comment:Unable to determine due to color interference Specific [place] SEE COMMENT 1.001 - 1.035 02/01/2023 3:33 PM CDT OWAT Comment:Unable to determine due to color interference Urobilinogen SEE COMMENT 0.2 - 1.0 mg/dL 02/01/2023 3:33 PM CDT OWAT Comment:Unable to determine due to color interference White Blood Cells 4-10 /hpf 02/01/2023 3:33 PM CDT OWAT Comment: ----REFERENCE VALUE---- Males: 0-3 Females: 0-10 Unknown: 0-10 Red Blood Cells >100(A) 0 - 2 /hpf 3:33 PM CDT OWAT Dysmorphic Red Blood Cells <=25 <=25 % 02/01/2023 3:33 PM CDT OWAT Bacteria Present(A) None Seen 02/01/2023 3:33 PM CDT OWAT Urine (Urine, Midstream) 02/01/2023 3:14 PM CDT 02/01/2023 3:22 PM CDT Tiffanie Smith P.A.-C., P.A. LAB URINE ORD ERABLES [facility] [address] [place] [address], [place] OWAT [facility] [address] [place] [address] * (ABNORMAL) Bacterial Culture, Aerobic + Susceptibility, Urine (02/01/2023 3:14 PM CDT) Urine Culture Mixed microbiota (A) 02/02/2023 12:13 PM CDT MKTO Urine (Urine, Midstream) 02/01/2023 3:14 PM CDT 02/01/2023 5:28 PM CDT Comment:Specimen Source Site : Urine Tiffanie Smith P.A.-C., P.A. LAB MICROBIOL OGY - GENERAL ORDERABLES [facility] [address] [place] [address], [facility] [place] [address] documented in this encounter Visit Diagnoses Diagnosis Hematuria- Primary documented in this encounter Care Teams Rug Hooker Relationship Specialty Start Date End Date Elsewhere, Pcp PCP - General Internal Medicine 11/04/22 documented as of this encounter
--- OUTSIDE RECORDS SUMMARY | 2023-07-30 11:08 | XMS_ITS | Encounter Summary ---
Author Name Unknown Organization [facility] Address [address] [place] [address] Care Team Providers Care Cook Railroad Name Role Phone Unavailable Primary Care Provider Unavailabl e Reason for Referral * Outpatient (Routine) - Closed Specialty Diagnoses / Procedures Referred By Contac t Referred To Contact Diagnoses Fracture Femur Closed Initial Right (HCC) Procedures DX Hip And Pelvis Right 2-3 Views Milton Mckeon P.A.-C. [address] [place] [phone] [facility] Region Referral ID Status Reason Start Date Expiration Date Visits Re quested Visits Authorized [id number] Closed 09/23/2022 09/23/2023 1 1 ESS TREATER Reason for Visit * Outpatient (Routine) - Closed Specialty Diagnoses / Procedures Referred By Contac t Referred To Contact Diagnoses Fracture Femur Closed Initial Right (HCC) Procedures DX Hip And Pelvis Right 2-3 Views Milton Mckeon P.A.-C. [address] [place] [phone] [facility] Region Referral ID Status Reason Start Date Expiration Date Visits Re quested Visits Authorized [id number] Closed 09/23/2022 09/23/2023 1 1 Encounter Details Date Type Department Care Team (Latest Contact Info) Description 09/24/2022 1:52 PM PROCESS TREATER - 09/24/2022 11:59 PM PROCESS TREATER Hospital Encounter Department of Radiology in [place], [place] [address] [place] [phone] Milton Mckeon P.A.-C. [address] [place] [phone] Fracture Femur Closed Initial Right (HCC) Discharge Disposition: Home or Self Care Social History Tobacco Use Types Packs/Day Years Used Date Smoking Tobacco: Some Days Cigarettes 0.5 Started: 1970 Smokeless Tobacco: Never Alcohol Use Standard Drinks/Week [...] often do you attend chur ch or cheondoism services? Never 09/21/2022 Do you belong to any clubs o r organizations such as anabaptism groups, unions, fraternal or athletic groups, or [...] care, and heating? Not very hard 09/21/2022 [facility] of Occupat ional Health - Occupational Stress [...] money to buy more. Never true 09/22/19 23 Within the past 12 months, t [...] Sex Assigned at Female 09/21/2022 2:32 PM PROCESS TREATER Gender Identity Female 03/25/2018 1:18 PM CDT [...] 1 tablet by mouth daily. 0 06/05/2015 Eliquis 5 mg tablet Take 5 mg by mouth 2 (two) times a day. 0 09/09/2022 gabapentin (NEURONTIN) 600 mg tablet Take 2 tablets by mouth 3 (three) times a day. 0 06/05/2015 lisinopril (PRINIVIL,ZESTRIL) 5 mg tablet Take 1 [...] with breakfast. Total of 225mg 0 07/20/2019 aspirin (ASPIRIN LOW DOSE) [address] tablet Take 1 tablet by mouth daily. 0 10/03/2010 11/04/2022 calcium carb/Mgox/vit D2/biofl (CALCIUM CARB-VIT R2-RJ-RPDDRSR ORAL) Take 1 tablet by mouth 2 (two) times a day. 0 10/02/2010 11/04/2022 calcium carbonate-vitamin D3 (CALTRATE WITH VITAMIN D3) 600 mg(1,500mg) -800 unit per tablet Take 1 tablet by mouth 2 (two) times a day. 0 08/08/2013 11/04/2022 celecoxib (CeleBREX) 200 mg capsule 0 07/20/2019 11/04/2022 glucosamine/chondro barger A/C/Mn (GLUCOSAMINE-CHONDROITIN COMPLX ORAL) Take 1 tablet by mouth 2 (two) times a day. 0 06/05/2015 11/04/2022 HYDROcodone-acetaminophe n (NORCO) 5-325 mg per tablet Take 1 tablet by mouth. 0 09/15/2017 03/19/2023 L. acidophilus/pectin, citrus (ACIDOPHILUS PROBIOTIC ORAL) Take 1 capsule by mouth daily. 0 06/19/2021 03/19/2023 MULTIVITAMIN ORAL Take 1 tablet by mouth daily. 0 10/03/2010 11/04/2022 poluwsia-kutenffxu-XQ (CORTISPORIN) 3.5-10,000-1 mg/mL-unit/mL-% otic solution 0 07/31/2022 11/04/2022 oxyCODONE (ROXICODONE) 15 mg immediate release tablet Take 1 tablet by mouth 4 (four) times a day. 0 08/20/2017 11/04/2022 varenicline (Chantix) 1 mg tablet Take 1 mg by mouth 2 (two) times a day with meals. 0 09/08/2022 03/19/2023 vitamin E 600 unit capsule Take 2 capsules by mouth 2 (two) times a day. 0 10/02/2010 11/04/2022 warfarin (COUMADIN) 5 mg tablet Take 5 mg by mouth. Take as directed per After Visit Summary. 0 11/04/2022 documented as of this encounter Plan of Treatment Not on file documented as of this encounter Procedures Procedure Name Priority Date/Time Associated Diagnosis Comments DX HIP AND PELVIS RIGHT 2-3 VIEWS RAD - Routine (most inpatients and all outpatients) 09/24/2022 2:30 PM PROCESS TREATER Fracture Femur Closed Initial Right (HCC) documented in this encounter Results * DX Hip And Pelvis Right 2-3 Views (09/24/2022 2:30 PM PROCESS TREATER) Anatomical Region Laterality Modality Lower Extremity, Pelvis, Hip , Musculoskeletal RST LOS, Musculoskeletal ARZ LOS, Muskuloskeletal FLA LOS Right Digit al Radiography 09/24/2022 2:41 PM PROCESS TREATER Impressions 09/24/2022 2:42 PM PROCESS TREATER Compared to 09/10/2022. There is screw fixation across a healing subcapital fracture of the right proximal femur. No change since the prior study. Joint space narrowing right hip with chondrocalcinosis. Instrumentation the lower lumbar spine. Degenerative changes both SI joints, greater on the right. Extensive vascular calcifications. Osteopenia. The HEIDY with acetabular reconstruction is unchanged. Narrative 09/24/2022 2:42 PM PROCESS TREATER EXAM: ??DX HIP AND PELVIS RIGHT 2-3 VIEWS Procedure Note Julieta Cedillo M.D. - 09/24/2022 EXAM: DX HIP AND PELVIS RIGHT 2-3 VIEWS IMPRESSION: Compared to 09/10/2022. There is screw fixation across a healingsubcapital fracture of the right proximal femur. No change since the prior study. Joint spacenarrowing right hip with chondrocalcinosis. Instrumentation the lower lumbar spine. Degenerativechanges both SI joints, greater on the right. Extensive vascular calcifications. Osteopenia. TheTHA with acetabular reconstruction is unchanged. Milton REMY DIAGNOSTIC I MAGING PROCEDURES documented in this encounter Visit Diagnoses Diagnosis Fracture Femur Closed Initial Right (HCC) documented in this encounter
--- OUTSIDE RECORDS SUMMARY | 2023-07-30 11:08 | XMS_ITS | Encounter Summary ---
Author Name Unknown Organization [facility] Address [address] [place] [address] Care Team Providers Care Truck Engine Technician Name Role Phone Elsewhere, Pcp Primary Care Provider Unavailabl e Encounter Details Date Type Department Care Team (Late st Contact Info) Description 11/05/2022 Clinical Communication Department of Orthopedic Surgery in [place], [place] [address] [phone] Lawrence Arita M.D. [address] [phone] Social History Tobacco Use Types [...] often do you attend chur ch or sikh services? Never 09/21/2022 Do you belong to any clubs o r organizations such as taoist groups, unions, fraternal or athletic groups, or [...] Answer Date Recorded PHQ-2 Score 2 11/01/2022 [facility] - [facility]ational Stress Questionnaire Answer Date [...] place to sleep or slept in a senior care (including now)? No 09/21/2022 Nutrition Answer Date [...] Sex Assigned at Female 09/21/2022 2:32 PM PIEROGI MAKER Gender Identity Female 03/25/2018 1:18 PM CDT Sexual Orientation Straight 03/25/2018 1: 18 PM CDT documented as of this encounter Miscellaneous Notes * Telephone Encounter - Sachi Hugo R.N. - 11/07/2022 11:26 AM CDT Called patient and discussed concerns of patient still smoking. Patient states she quit smoking in June. Patient states she lives with her son and [id number], who are current smokers. Patient states they go to the garage to smoke, but all of the coats hang in the same spot, so she thought that's why she smelled of smoke. Informed patient if she comes to surgery and smells of smoke Dr. Arita will test her for nicotine use. Patient states she is currently using nicotine pouches. Informed patient she needs to be free from all sources of nicotine before her upcoming total joint replacement. Patient states she will stop using the pouches today. * Telephone Encounter - Sachi Hugo R.N. - 11/05/2022 11:14 AM CDT ----- Message from Lawrence Arita M.D. sent at 11/05/2022 6:52 AM CDT ----- Regarding: FW: LILLI Can one of you call Suzi and make sure she is truly not smoking? If she smells like smoke when she shows up for surgery, we will run a nicotine test as it is really not safe to do a joint replacement if smoking. Thank you! ----- Message ----- From: Cristiana Fernandez P.A.-C. Sent: 11/04/2022 4:27 PM CDT To: Lawrence Arita M.D. Subject: LILLI Bravo - Chidi was doing patient's preop today and she remained adamant that she quit smoking in June, though she smelled very strongly of smoke during our visit to the point where I almost needed to excuse myself from the room. I just wanted to make you aware prior to her upcoming knee replacement next week. Cristiana Crocker documented in this encounter Plan of Treatment Not on file documented as of this encounter Visit Diagnoses Not on filedocumented in this encounter Care Teams Truck Engine Technician Relationship Specialty Start Date End Date Elsewhere, Pcp PCP - General Internal Medicine 11/04/22 documented as of this encounter
--- OUTSIDE RECORDS SUMMARY | 2023-07-30 11:08 | XMS_ITS | Encounter Summary ---
Author Name Unknown Organization [facility] Address [address] [place] [address] Care Team Providers Care Refund Specialist Name Role Phone Unavailable Primary Care Provider Unavailabl e Reason for Referral * Outpatient (Routine) - Closed Specialty Diagnoses / Procedures Referred By Contac t Referred To Contact Diagnoses Fracture Femur Midcervical Nondisplaced Closed Subsequent With Routine Healing Right Procedures DX Hip And Pelvis Right 2-3 Views Lawrence Arita M.D. [address] [place] [phone] [facility] Region Referral ID Status Reason Start Date Expiration Date Visits Re quested Visits Authorized [id number] Closed 10/20/2022 10/20/2023 1 1 * Outpatient (Routine) - Closed Specialty Diagnoses / Procedures Referred By Contac t Referred To Contact Diagnoses Primary Osteoarthritis Knee Left Primary Osteoarthritis Knee Right Procedures DX Knee Bilateral 4+ Views Lawrence Arita M.D. [address] [place] [phone] [facility] Region Referral ID Status Reason Start Date Expiration Date Visits Re quested Visits Authorized [id number] Closed 10/20/2022 10/20/2023 1 1 Reason for Visit * Outpatient (Routine) - Closed Specialty Diagnoses / Procedures Referred By Inderjit brown Referred To Contact Diagnoses Fracture Femur Midcervical Nondisplaced Closed Subsequent With Routine Healing Right Procedures DX Hip And Pelvis Right 2-3 Views Lawrence Arita M.D. [address] [phone] [facility] Region Referral ID Status Reason Start Date Expiration Date Visits Re quested Visits Authorized [id number] Closed 10/20/2022 10/20/2023 1 1 Encounter Details Date Type Department Care Team (Latest Contact Info) Description 10/24/2022 9:15 AM CDT - 10/24/2022 11:59 PM CDT Hospital Encounter Department of Radiology in [place], [place] [address] [phone] Lawrence Arita M.D. [address] [phone] Primary Osteoarthritis Knee Left; Primary Osteoarthritis Knee Right; Fracture Femur Midcervical Nondisplaced Closed Subsequent [...] often do you attend chur ch or christian services? Never 09/21/2022 Do you belong to any clubs o r organizations such as rastafari groups, unions, fraternal or athletic groups, or [...] care, and heating? Not very hard 09/21/2022 [facility]at ional [facility] - [...] Sex Assigned at Female 09/21/2022 2:32 PM FOOD AND BEVERAGE CHECKER Gender Identity Female 03/25/2018 1:18 PM CDT [...] 10/03/2010 11/04/2022 calcium carb/Mgox/vit D2/biofl (CALCIUM CARB-VIT E2-HS-AAXJERZ ORAL) Take 1 tablet by mouth 2 (two) times a day. 0 10/02/2010 11/04/2022 calcium carbonate-vitamin D3 (CALTRATE WITH VITAMIN D3) 600 mg(1,500mg) -800 unit per tablet Take 1 tablet by mouth 2 (two) times a day. 0 08/08/2013 11/04/2022 celecoxib (CeleBREX) 200 mg capsule 0 07/20/2019 11/04/2022 celecoxib (CeleBREX) 200 mg capsule 0 10/08/2022 11/04/2022 glucosamine/chondro barger A/C/Mn (GLUCOSAMINE-CHONDROITIN COMPLX ORAL) Take 1 tablet by mouth 2 (two) times a day. 0 06/05/2015 11/04/2022 HYDROcodone-acetaminophe n (NORCO) 5-325 mg per tablet Take 1 tablet by mouth. 0 09/15/2017 03/19/2023 L. acidophilus/pectin, citrus (ACIDOPHILUS PROBIOTIC ORAL) Take 1 capsule by mouth daily. 0 06/19/2021 03/19/2023 MULTIVITAMIN ORAL Take 1 tablet by mouth daily. 0 10/03/2010 11/04/2022 gaipuuwc-lnvqiaeyj-YS (CORTISPORIN) 3.5-10,000-1 mg/mL-unit/mL-% otic solution 0 07/31/2022 [...] - Routine (most inpatients and all outpatients) 10/24/2022 9:48 AM CDT Fracture Femur Midcervical Nondisplaced Closed Subsequent With Routine Healing Right DX KNEE BILATERAL 4+ VIEWS RAD - Routine (most inpatients and all outpatients) 10/24/2022 9:48 AM CDT Primary Osteoarthritis Knee Left Primary Osteoarthritis Knee Right documented in this encounter Results * DX Hip And Pelvis Right 2-3 Views (10/24/2022 9:48 AM CDT) Anatomical Region Laterality Modality Lower Extremity, Pelvis, Hip , Musculoskeletal RST LOS, Musculoskeletal ARZ LOS, Muskuloskeletal FLA LOS Right Digit al Radiography 10/24/2022 9:53 AM CDT Impressions 10/24/2022 9:56 AM CDT Unchanged alignment of healing right proximal femur fractures status post fixation. Left hip arthroplasty, left acetabular reconstruction, and partially imaged lower lumbar spine fusion. Hardware appears intact without evidence of loosening. No dislocation. No acute fracture. Moderate to severe arthrosis of the right hip and bilateral sacroiliac joints. Extensive atherosclerotic calcifications. Comparison is made with 09/24/2022. Narrative 10/24/2022 9:56 AM CDT EXAM: DX HIP AND PELVIS RIGHT 2-3 VIEWS Procedure Note Alysa Angel M.D. - 10/24/2022 EXAM: DX HIP AND PELVIS RIGHT 2-3 VIEWS IMPRESSION: Unchanged alignment of healing right proximal femur fractures status postfixation. Left hip arthroplasty, left acetabular reconstruction, and partially imagedlower lumbar spine fusion. Hardware appears intact without evidence of loosening. No dislocation. Noacute fracture. Moderate to severe arthrosis of the right hip and bilateral sacroiliac joints.Extensive atherosclerotic calcifications. Comparison is made with 09/24/2022. Lawrence Arita M.D. [facility] * DX Knee Bilateral 4+ Views (10/24/2022 9:48 AM CDT) Anatomical Region Laterality Modality Lower Extremity, Knee, Muscu loskeletal RST LOS, Musculoskeletal ARZ LOS, Muskuloskeletal FLA LOS Bilateral Digit al Radiography 10/24/2022 9:53 AM CDT Impressions 10/24/2022 9:54 AM CDT Demineralization. Degenerative arthritis bilateral knees with advanced lateral compartment joint space narrowing. Bilateral genu valgum. Knee joint effusions and/or synovitis. Patellar spurs and enthesophytes. Vascular calcifications. Narrative 10/24/2022 9:54 AM CDT EXAM: ??DX KNEE BILATERAL 4+ VIEWS Procedure Note Clint Hernandez M.D. - 10/24/2022 EXAM: DX KNEE BILATERAL 4+ VIEWS IMPRESSION: Demineralization. Degenerative arthritis bilateral knees with advancedlateral compartment joint space narrowing. Bilateral genu valgum. Knee jointeffusions and/or synovitis. Patellar spurs and enthesophytes. Vascular calcifications. Lawrence Arita M.D. [facility] documented in this encounter Visit Diagnoses Diagnosis Primary Osteoarthritis Knee Left Primary Osteoarthritis Knee Right Fracture Femur Midcervical Nondisplaced Closed Subsequent With Routine Healing Right documented in this encounter
--- OUTSIDE RECORDS SUMMARY | 2023-07-30 11:08 | XMS_ITS | Encounter Summary ---
Author Name Unknown Organization [facility] Address [address] [place] [address] Care Team Providers Care Accounts Administrator Name Role Phone Unavailable Primary Care Provider Unavailabl e Reason for Referral * MRI/CAT/PET Scan (Routine) - Closed Specialty Diagnoses / Procedures Referred By Inderjit t Referred To Contact Radiology Diagnoses Primary Osteoarthritis Knee Right Procedures CT Knee Right without IV Contrast AR CT LWR EXT WO CNTRST Lawrence Arita M.D. [address] [place] [phone] [facility] Region Referral ID Status Reason Start Date Expiration Date Visits Re quested Visits Authorized [id number] Closed 10/24/2022 11/22/2022 1 1 * Outpatient (Routine) - Closed Specialty Diagnoses / Procedures Referred By Inderjit brown Referred To Contact Family Medicine Diagnoses Primary Osteoarthritis Knee Right Lawrence Arita M.D. [address] [place] [phone] [facility] Region Referral ID Status Reason Start Date Expiration Date Visits Re quested Visits Authorized [id number] Closed 10/24/2022 10/24/2023 1 1 * Outpatient (Routine) - Closed Specialty Diagnoses / Procedures Referred By Contac t Referred To Contact Orthopedic Surgery Lawrence Arita M.D. [address], [place] [address] [facility] Region Referral ID Status Reason Start Date Expiration Date Visits Re quested Visits Authorized [id number] Closed 10/24/2022 10/23/2025 1 1 * Outpatient (Routine) - Closed Specialty Diagnoses / Procedures Referred By Contac t Referred To Contact Orthopedic Surgery Lawrence Arita M.D. [address] [place] [phone] [facility] Region Referral ID Status Reason Start Date Expiration Date Visits Re quested Visits Authorized [id number] Closed 10/24/2022 10/23/2025 1 1 * Outpatient (Routine) - Closed Specialty Diagnoses / Procedures Referred By Contmigue t Referred To Contact Orthopedic Surgery Lawrence Arita M.D. [address], [place] [address] [facility] Region Referral ID Status Reason Start Date Expiration Date Visits Re quested Visits Authorized [id number] Closed 10/24/2022 10/23/2025 1 1 * Outpatient (Routine) - Closed Specialty Diagnoses / Procedures Referred By Contac t Referred To Contact Diagnoses Fracture Femur Midcervical Nondisplaced Closed Subsequent With Routine Healing Right Procedures DX Hip And Pelvis Right 2-3 Views Lawrence Arita M.D. [address], [place] [address] [facility] Region Referral ID Status Reason Start Date Expiration Date Visits Re quested Visits Authorized [id number] Closed 10/20/2022 10/20/2023 1 1 * Outpatient (Routine) - Closed Specialty Diagnoses / Procedures Referred By Inderjit brown Referred To Contact Diagnoses Primary Osteoarthritis Knee Left Primary Osteoarthritis Knee Right Procedures DX Knee Bilateral 4+ Views Lawrence Arita M.D. [address], [place] [address] [facility] Referral ID Status Reason Start Date Expiration Date Visits Re quested Visits Authorized [id number] Closed 10/20/2022 10/20/2023 1 1 Reason for Visit * Reason Comments Pain Post-op ORIF Follow-up ORIF Fracture ORIF * Appointment Request (Routine) - Closed Specialty Diagnoses / Procedures Referred By Inderjit brown Referred To Contact Orthopedic Surgery Lawrence Arita M.D. [address], [place] [address] Referral ID Status Reason Start Date Expiration Date Visits Re quested Visits Authorized [id number] Closed 09/17/2022 09/17/2023 1 1 Encounter Details Date Type Department Care Team (Latest Contact Info) Description 10/24/2022 10:30 AM CDT Office Visit Department of Orthopedic Surgery in [place], [place] [address] [place] [phone] Lawrence Arita M.D. [address] [place] [phone] Fracture Femur Midcervical Nondisplaced Closed Subsequent With Routine Healing Right (Primary Dx); Primary Osteoarthritis Knee Left; Primary Osteoarthritis Knee Right Social History Tobacco Use Types Packs/Day [...] often do you attend chur ch or yazdanism services? Never 09/21/2022 Do you belong to any clubs o r organizations such as mu-ism groups, unions, fraternal or athletic groups, or [...] care, and heating? Not very hard 09/21/2022 [facility] [place] of Occupat ional Health - Occupational Stress [...] place to sleep or slept in a penitentiary (including now)? 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 All questions were answered and the patient verbalized understanding of all information and instructions given. Patient was provided with the total joint packet including information about before andafter surgery care. Post op and surgery scheduling appt were made. Surgical wipes provided. documented in this encounter Progress Notes * Lawrence Arita M.D. - 10/24/2022 10:30 AM CDT HPI: Suzi returns to clinic 6 weeks out from [facility] of a right femoral neck fracture. Her hip is doing well. It feels better every week. Her knees bother her much more than her hip. Of note, she was scheduled to get her knees replaced by another surgeon in August which she had acanceled due to her hip fracture. She would like to have these replaced as soon as possible as she quit smoking to have these done. She has failed years of conservative management regards to these knees she is not happy with the quality of life due to her knees. PHYSICAL EXAM: She is a healthy-appearing female no acute distress. Examination of her right hip reveals a well-healed surgical incision. No evidence for infection. Gentle hip range of motion is not irritable. Examination of bilateral knees reveals benign skin. She is neurovascular intact and ligamentously stable bilaterally. She has valgus deformities bilaterally. She has severe tenderness palpation over both medial and lateral joint lines. Range of motion is 5-105 degrees. IMAGING: X-rays of her hip demonstrate stable alignment of her femoral neck fracture and 3 screws. Fracture appears to be healing appropriately. X-rays of both knees were taken today and independently reviewed. She has severe tricompartmental osteoarthritis of bilateral knees with complete collapse of lateral joint space bilaterally. She has significant subchondral sclerosis and osteophyte formation. ASSESSMENT AND PLAN: Suzi is a pleasant 67-year-old female who is 6 weeks out from CRPP of a right femoral neck fracture. At this point, she may advance activities based on pain. She has severe tricompartmental osteoarthritis of bilateral knees which she is managed conservatively for many years. She has failed conservative management including NSAIDs, therapy, and multiple injections. She is not happy quality of life. She is having trouble with ADLs. She would like to get on the schedule for knee replacements as soon as possible. Risks, benefits, alternatives to robotic assisted total knee arthroplasty were explained. She did express understanding of this and agreed with the decision proceed with surgery. She will do the right side first so as not to over stress her hip fracture. She would like to do this as a 23 hour stay. documented in this encounter Plan of Treatment Scheduled Referrals Name Type Priority Associated Diagnoses Orde r Schedule Orthopedic Surgery Post Op (clinic) Outpatient Referral Routine Expected: 11/07/2022, Expires: 01/24/2024 Orthopedic Surgery Post Op (clinic) Outpatient Referral Routine Expected: 03/19/2023, Expires: 04/25/2023 Orthopedic Surgery Post Op (clinic) Outpatient Referral Routine Expected: 12/05/2022, Expires: 04/25/2023 [facility] consult (clinic) Outpatient Referral Routine Primary Osteoarthritis Knee Right Expected: 10/24/2022 (Approximate), Expires: 01/24/2024 documented as of this encounter Results * CT Knee Right without IV Contrast (10/27/2022 4:05 PM CDT) Anatomical Region Laterality Modality Lower Extremity, Knee, Muscu loskeletal RST LOS, Musculoskeletal ARZ LOS, Muskuloskeletal FLA LOS Right Compu katie Tomography 10/28/2022 1:23 AM CDT Impressions 10/28/2022 3:37 AM CDT 1. Lateral predominant tricompartmental osteoarthritis of the knee. Exam performed with Phillip protocol for presurgical planning. 2. Remote prior rectus femoris avulsion injury from the anterior inferior iliac spine. Narrative 10/28/2022 3:37 AM CDT EXAM: ??CT KNEE RIGHT WITHOUT IV CONTRAST No 3D post-processing performed. COMPARISON: ??Radiographs from 10/24/2022. FINDINGS: ?? Phillip protocol CT performed for presurgical planning. Lateral predominant tricompartmental osteoarthritis of the knee. Well-corticated ossific fragment at the origin of the rectus femoris at the anterior inferior iliac spine, consistent with remote prior avulsion injury. Right femoral neck screws in place without evidence of loosening or failure. Osseous structures are otherwise intact and unremarkable. Procedure Note Bunny Rouse M.D. - 10/28/2022 EXAM: CT KNEE RIGHT WITHOUT IV CONTRAST No 3D post-processing performed. COMPARISON: Radiographs from 10/24/2022. FINDINGS: [facility] protocol CT performed for presurgical planning. Lateral predominanttricompartmental osteoarthritis of the knee. Well-corticated ossific fragment at the origin of the rectus femoris atthe anterior inferior iliac spine, consistent with remote prior avulsion injury. Right femoral neckscrews in place without evidence of loosening or failure. Osseous structures are otherwise intact and unremarkable. IMPRESSION: 1. Lateral predominant tricompartmental osteoarthritis of the knee. Examperformed with Phillip protocol for presurgical planning. 2. Remote prior rectus femoris avulsion injury from the anterior inferioriliac spine. Lawrence Arita M.D. [facility] [place] * DX Hip And Pelvis Right 2-3 [...] is made with 09/24/2022. Lawrence Arita M.D. [facility]ED[facility] * DX Knee [...] and enthesophytes. Vascular calcifications. Lawrence Arita M.D. [facility]ED[facility] documented in this encounter Visit Diagnoses Diagnosis Fracture Femur Midcervical Nondisplaced Closed Subsequent With Routine Healing Right- Primary Primary Osteoarthritis Knee Left Primary Osteoarthritis Knee Right Primary Osteoarthritis Knee Left Primary Osteoarthritis Knee Right Fracture Femur Midcervical Nondisplaced Closed Subsequent With Routine Healing Right Primary Osteoarthritis Knee Right documented in this encounter
--- OUTSIDE RECORDS SUMMARY | 2023-07-30 11:08 | XMS_ITS | Encounter Summary ---
Author Name Unknown Organization [facility] Address [address] [place] [address] Care Team Providers Care Director Social Welfare Name Role Phone Elsewhere, Pcp Primary Care Provider Unavailabl e Reason for Referral * MRI/CAT/PET Scan (Routine) - Closed Specialty Diagnoses / Procedures Referred By Inderjit brown Referred To Contact Radiology Diagnoses Primary Osteoarthritis Knee Left Procedures CT Knee Left without IV Contrast MA CT LWR EXT WO CNTRST Milton Mckeon P.A.-C. [address] [place] [phone] [facility] Region Referral ID Status Reason Start Date Expiration Date Visits Re quested Visits Authorized [id number] Closed 12/11/2022 01/10/2023 1 1 * Outpatient (Routine) - Closed Specialty Diagnoses / Procedures Referred By Inderjit brown Referred To Contact Family Medicine Diagnoses Primary Osteoarthritis Knee Left Milton Mckeon P.A.-C. [address] [place] [phone] [facility] Region Referral ID Status Reason Start Date Expiration Date Visits Re quested Visits Authorized [id number] Closed 11/26/2022 11/26/2023 1 1 * Outpatient (Routine) - Closed Specialty Diagnoses / Procedures Referred By Contac t Referred To Contact Orthopedic Surgery Milton Mckeon P.A.-C. [address] [place] [phone] [facility] Region Referral ID Status Reason Start Date Expiration Date Visits Re quested Visits Authorized [id number] Closed 11/26/2022 11/25/2025 1 1 * Outpatient (Routine) - Closed Specialty Diagnoses / Procedures Referred By Contac t Referred To Contact Orthopedic Surgery Milton Mckeon P.A.-C. [address] [place] [phone] [facility] Region Referral ID Status Reason Start Date Expiration Date Visits Re quested Visits Authorized [id number] Closed 11/26/2022 11/25/2025 1 1 * Outpatient (Routine) - Closed Specialty Diagnoses / Procedures Referred By Contac t Referred To Contact Diagnoses Primary Osteoarthritis Knee Left Procedures DX Knee Left Standing 3 Views Milton Mckeon P.A.-C. [address] [place] [phone] [facility] Region Referral ID Status Reason Start Date Expiration Date Visits Re quested Visits Authorized [id number] Closed 11/26/2022 11/26/2023 1 1 Reason for Visit * Reason Comments Follow-up Arthroplasty Post-op Pain * Outpatient (Routine) - Closed Specialty Diagnoses / Procedures Referred By Contac t Referred To Contact Orthopedic Surgery Lawrence Arita M.D. [address] [place] [phone] [facility] Region Referral ID Status Reason Start Date Expiration Date Visits Re quested Visits Authorized [id number] Closed 10/24/2022 10/23/2025 1 1 Encounter Details Date Type Department Care Team (Latest Contact Info) Description 11/26/2022 1:30 PM CDT Office Visit Department of Orthopedic Surgery in [place], [place] [address] [phone] Milton Mckeon P.A.-Korina. [address] [phone] Arthroplasty Total Knee Replacement Status Post Right (Primary Dx); Primary Osteoarthritis Knee Left Social History Tobacco Use Types Packs/Day [...] often do you attend chur ch or congregational services? Never 09/21/2022 Do you belong to any clubs o r organizations such as scientologist groups, unions, fraternal or athletic groups, or [...] Answer Date Recorded PHQ-2 Score 2 11/01/2022 [facility]at ional [facility] - Occupational Stress Questionnaire Answer Date [...] place to sleep or slept in a fpc (including now)? 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 All questions were answered and the patient verbalized understanding of all information and instructions given. Patient was provided with the total joint packet including information about before andafter surgery care. Post op and surgery scheduling appt were made. Surgical wipes provided. documented in this encounter Progress Notes * Milton Mckeon P.A.-C. - 11/26/2022 1:30 PM CDT PRIMARY CARE PROVIDER ELSEWHERE, PCP CHIEF COMPLAINT/REASON FOR VISIT Two-week postop recheck of a right robotically assisted total knee arthroplasty performed by Dr. Arita on 09/10/2022. She also has significant left knee degenerative joint disease. SUBJECTIVE HISTORY OF PRESENT ILLNESS Suzi Rutledge is a very pleasant female who presents today for 2 week postop recheck of aright total knee arthroplasty performed by Dr. Arita on date listed above. The patient reports that she is doing well. She has had mild pain following surgery. she is in physical therapy 2 to 3 times per week without any complications. Motion is progressing appropriately. She denies any issues w ith her Aquacel dressing. She has had no significant drainage. She denies any fever, chills, night sweats, nausea, or vomiting. She reports that her left knee has been bothering her significantly. She would like to proceed withleft total knee arthroplasty as previously discussed with Dr. Arita. OBJECTIVE PHYSICAL EXAMINATION MUSCULOSKELETAL: Examination of the right knee reveals the incision to be clean, dry, and intact without signs of infection following dressing removal. Neurovascularly intact distally. Capillary refill less than 2 seconds. Demonstrates range of motion of 10 to 115 degrees. ASSESSMENT / PLAN IMPRESSION/REPORT/PLAN #1 Arthroplasty Total Knee Replacement Status Post Right #2 Primary Osteoarthritis Knee Left Two weeks status post right total knee arthroplasty performed by Dr. Arita on date listed above. PLAN: Suzi Rutledge is doing well. At this point she will continue with therapy. We will plan on seeing her back in clinic in approximately 1 month for her recheck with Dr. Arita. We did discuss today that she can continue to shower. She should continue to monitor the incision for signs of infection. We did review those findings including drainage, redness, increased warmth, and sudden increase in pain. Wean off of pain medications as able. She would like to plan on proceeding with her left total knee arthroplasty with Dr. Arita. She did have a right hip pinning performed by Dr. Arita secondary to a right femoral neck fracture. Dr. Arita has recommended waiting at least 6 weeks between her total knee arthroplasties prior to proceeding with left knee arthroplasty. Therefore we will allow her to schedule her next total knee arthroplasty to be performed after 12/24/2022. Surgery orders were placed today. The risks of a left robotically assisted total knee arthroplasty were again reviewed with the patient. All questions were answered to patient's satisfaction. documented in this encounter Plan of Treatment Scheduled Referrals Name Type Priority Associated Diagnoses Orde r Schedule Orthopedic Surgery Post Op (clinic) Outpatient Referral Routine 1 Occurrences starting 11/26/2022 until 02/27/2024 Orthopedic Surgery Post Op (clinic) Outpatient Referral Routine 1 Occurrences starting 11/26/2022 until 05/29/2023 Primary Care - [facility] consult (clinic) Outpatient Referral Routine Primary Osteoarthritis Knee Left 1 Occurrences starting 11/26/2022 until 02/27/2024 documented as of this encounter Results * CT Knee Left [...] No 3D post-processing performed. COMPARISON: ??None FINDINGS: ??Phillip CT performed for presurgical planning. Moderate knee joint effusion. Tricompartmental degenerative changes of the knee with joint space narrowing and osteophytosis. Atherosclerotic vascular disease. Left hip arthroplasty. Partially imaged lumbar spine hardware. Procedure Note Junito Boggs M.D. - 12/11/2022 EXAM: CT KNEE LEFT WITHOUT IV CONTRAST No 3D post-processing performed. COMPARISON: None FINDINGS: Phillip CT performed for presurgical planning. Moderate knee jointeffusion. Tricompartmental degenerative changes of the knee with joint spacenarrowing and osteophytosis. Atherosclerotic vascular disease. Left hip arthroplasty. Partially imagedlumbar spine hardware. IMPRESSION: CT performed for presurgical planning. Milton Mckeon P.A.-C. IMG CT PROCEDURE S documented in this encounter Visit Diagnoses Diagnosis Arthroplasty Total Knee Replacement Status Post Right- Primary Primary Osteoarthritis Knee Left Primary Osteoarthritis Knee Left documented in this encounter Care Teams Director Social Welfare Relationship Specialty Start Date End Date Elsewhere, Pcp PCP - General Internal Medicine 11/04/22 documented as of this encounter
--- OUTSIDE RECORDS SUMMARY | 2023-07-30 11:08 | XMS_ITS | Encounter Summary ---
Author Name Unknown Organization [facility] Address [address] [place] [address] Care Team Providers Care Confidential Investigator Name Role Phone Elsewhere, Pcp Primary Care Provider Unavailabl e Encounter Details Date Type Department Care Team (Late st Contact Info) Description 11/17/2022 Orders Only Department of Orthopedic Surgery in [place], [place] [address] [phone] Lawrence Arita M.D. [address] [place] [phone] Arthroplasty Total Knee Replacement Status Post Right (Primary Dx) Social History Tobacco Use Types [...] often do you attend chur ch or restoration services? Never 09/21/2022 Do you belong to any clubs o r organizations such as mormon groups, unions, fraternal or athletic groups, or [...] Answer Date Recorded PHQ-2 Score 2 11/01/2022 [facility] - Occupational Stress Questionnaire Answer Date [...] place to sleep or slept in a retirement (including now)? 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
--- OUTSIDE RECORDS SUMMARY | 2023-07-30 11:08 | XMS_ITS | Encounter Summary ---
Author Name Unknown Organization [facility] Address [address] [place] [address] Care Team Providers Care Store Receiving Clerk Name Role Phone Elsewhere, Pcp Primary Care Provider Unavailabl e Reason for Referral * Outpatient (Routine) - Closed Specialty Diagnoses / Procedures Referred By Contac t Referred To Contact Diagnoses Primary Osteoarthritis Knee Right Procedures DX Knee Right 2 View Lawrence Arita M.D. [address] [place] [phone] [facility] Region Referral ID Status Reason Start Date Expiration Date Visits Re quested Visits Authorized [id number] Closed 11/12/2022 11/12/2023 1 1 Reason for Visit * Outpatient (Routine) - Closed Specialty Diagnoses / Procedures Referred By Inderjit t Referred To Contact Diagnoses Primary Osteoarthritis Knee Right Procedures DX Knee Right 2 View Lawrence Arita M.D. [address] [place] [phone] [facility] Region Referral ID Status Reason Start Date Expiration Date Visits Re quested Visits Authorized [id number] Closed 11/12/2022 11/12/2023 1 1 Encounter Details Date Type Department Care Team (Latest Contact Info) Description 11/12/2022 7:33 AM CDT - 11/12/2022 11:59 PM CDT Hospital Encounter Department of Radiology in [place], [place] [address] [place] [phone] Lawrence Arita M.D. [address] [place] [phone] Primary Osteoarthritis Knee Right Discharge Disposition: Home or Self Care [...] any clubs o r organizations such as presybeterian groups, unions, fraternal or athletic groups, or [...] Answer Date Recorded PHQ-2 Score 2 11/01/2022 [facility] Occupat ional Health - Occupational [...] place to sleep or slept in a correction (including now)? 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 0 10/25/2022 HYDROcodone-acetaminophe n (NORCO) 5-325 mg per tablet Take 1 tablet by mouth. 0 09/15/2017 03/19/2023 L. acidophilus/pectin, citrus (ACIDOPHILUS PROBIOTIC ORAL) Take 1 capsule by mouth daily. 0 06/19/2021 03/19/2023 varenicline (Chantix) 1 mg tablet Take 1 mg by mouth 2 (two) times a day with meals. 0 09/08/2022 03/19/2023 documented as of this encounter Plan of Treatment Not on file documented as of this encounter Procedures Procedure Name Priority Date/Time Associated Diagnosis Comments DX KNEE RIGHT 2 VIEW RAD - Routine (most inpatients and all outpatients) 11/12/2022 10:15 AM CDT Primary Osteoarthritis Knee Right documented in this encounter Results * DX Knee Right 2 View (11/12/2022 10:15 AM CDT) Anatomical Region Laterality Modality Knee, Lower Extremity, Muscu loskeletal RST LOS, Musculoskeletal ARZ LOS, Muskuloskeletal FLA LOS Right Digit al Radiography 11/12/2022 1:19 PM CDT Impressions 11/12/2022 1:19 PM CDT Postoperative changes right total knee arthroplasty, hardware components appear well seated and intact. Scattered vascular calcifications. Comparison October 24, 2022. Narrative 11/12/2022 1:19 PM CDT EXAM: DX KNEE RIGHT 2 VIEW Procedure Note Lee Romero M.D. - 11/12/2022 EXAM: DX KNEE RIGHT 2 VIEW IMPRESSION: Postoperative changes right total knee arthroplasty, hardware componentsappear well seated and intact. Scattered vascular calcifications. Comparison October. Lawrence Arita M.D. [facility] PROCEDURES documented in this encounter Visit Diagnoses Diagnosis Primary Osteoarthritis Knee Right documented in this encounter Care Teams Store Receiving Clerk Relationship Specialty Start Date End Date Elsewhere, Pcp PCP - General Internal Medicine 11/04/22 documented as of this encounter
--- OUTSIDE RECORDS SUMMARY | 2023-07-30 11:08 | XMS_ITS | Encounter Summary ---
Author Name Unknown Organization [facility] Address [address] [place] [address] Care Team Providers Care Tube Coremaker Name Role Phone Unavailable Primary Care Provider Unavailabl e Reason for Referral * MRI/CAT/PET Scan (Routine) - Closed Specialty Diagnoses / Procedures Referred By Inderjit brown Referred To Contact Radiology Diagnoses Primary Osteoarthritis Knee Right Procedures CT Knee Right without IV Contrast ND CT LWR EXT WO Lawrence Stoner M.D. [address] [place] [phone] [facility] Region Referral ID Status Reason Start Date Expiration Date Visits Re quested Visits Authorized [id number] Closed 10/24/2022 11/22/2022 1 1 Reason for Visit * MRI/CAT/PET Scan (Routine) - Closed Specialty Diagnoses / Procedures Referred By Inderjit brown Referred To Contact Radiology Diagnoses Primary Osteoarthritis Knee Right Procedures CT Knee Right without IV Contrast ND CT LWR EXT WO Lawrence Stoner M.D. [address] [place] [phone] [facility] Region Referral ID Status Reason Start Date Expiration Date Visits Re quested Visits Authorized [id number] Closed 10/24/2022 11/22/2022 1 1 Encounter Details Date Type Department Care Team (Latest Contact Info) Description 10/27/2022 2:00 PM CDT - 10/27/2022 11:59 PM CDT Hospital Encounter Department of Radiology in [place], [place] [address] [place] [phone] Lawrence Arita M.D. [address] [place] [phone] Primary Osteoarthritis Knee Right Discharge Disposition: Home [...] often do you attend chur ch or congregation services? Never 09/21/2022 Do you belong to any clubs o r organizations such as oriental orthodox groups, unions, fraternal or athletic groups, or [...] care, and heating? Not very hard 09/21/2022 [facility] of Occupat ional Health - Occupational Stress [...] place to sleep or slept in a care home (including now)? 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 0 10/25/2022 aspirin (ASPIRIN LOW DOSE) [address] tablet Take 1 tablet by mouth daily. 0 10/03/2010 11/04/2022 calcium carb/Mgox/vit D2/biofl (CALCIUM CARB-VIT [id number] ORAL) Take 1 tablet by mouth 2 [...] tablet by mouth daily. 0 10/03/2010 11/04/2022 wpbhdsod-fdennwwda-QM (CORTISPORIN) 3.5-10,000-1 mg/mL-unit/mL-% otic solution 0 07/31/2022 [...] Priority Date/Time Associated Diagnosis Comments CT KNEE RIGHT WITHOUT IV CONTRAST RAD - Routine (most inpatients and all outpatients) 10/27/2022 4:05 PM CDT Primary Osteoarthritis Knee Right documented in this encounter Results * CT Knee Right [...] post-processing performed. COMPARISON: Radiographs from 10/24/2022. FINDINGS: Phillip protocol CT performed for presurgical planning. [...] the anterior inferioriliac spine. Lawrence Arita M.D. IMG CT PROCEDURES documented in this encounter Visit Diagnoses Diagnosis Primary Osteoarthritis Knee Right documented in this encounter
--- OUTSIDE RECORDS SUMMARY | 2023-07-30 11:08 | XMS_ITS | Encounter Summary ---
Author Name Unknown Organization [facility] Address [address] [place] [address] Care Team Providers Care Registered Nurses Name Role Phone Elsewhere, Pcp Primary Care Provider Unavailabl e Reason for Visit * Reason Onset Date Comments SURGERY DATE 10/24/2022 Encounter Details Date Type Department Care Team (Late st Contact Info) Description 10/24/2022 Clinical Communication Department of Orthopedic Surgery in [place], [place] [address] [phone] Lawrence Arita M.D. [address] [phone] SURGERY DATE Social History Tobacco Use Types Packs/Day Years [...] often do you attend chur ch or quaker services? Never 09/21/2022 Do you belong to any clubs o r organizations such as adventist groups, unions, fraternal or athletic groups, or [...] Date Recorded PHQ-2 Score 2 11/01/20[facility] Answer Date [...] place to sleep or slept in a chcf (including now)? 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
--- OUTSIDE RECORDS SUMMARY | 2023-07-30 11:08 | XMS_ITS | Encounter Summary ---
Author Name Unknown Organization [facility] Address [address] [place] [address] Care Team Providers Care Budget Assistant Name Role Phone Elsewhere, Pcp Primary Care Provider Unavailabl e Reason for Visit * Reason Comments Pre-op Exam R TKA - Juan J * Outpatient (Routine) - Closed Specialty Diagnoses / Procedures Referred By Inderjit t Referred To Contact Family Medicine Diagnoses Primary Osteoarthritis Knee Right Lawrence Arita M.D. [address], [place] [phone] [facility] Region Referral ID Status Reason Start Date Expiration Date Visits Re quested Visits Authorized [id number] Closed 10/24/2022 10/24/2023 1 1 Encounter Details Date Type Department Care Team (Latest Contact Info) Description 11/04/2022 4:00 PM CDT Office Visit Department of Family Medicine, [facility], in [place], [place] [address], [place] [address] Cristiana Fernandez P.A.-C., P.A. [address], [place] [address] Preoperative Exam (Primary Dx); Primary Osteoarthritis Knee Right; Diabetes Mellitus Type 2 (HCC) Social History Tobacco Use Types Packs/Day [...] often do you attend chur ch or buddhism services? 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 Gender Identity Female 03/25/2018 1:18 PM CDT Sexual Orientation Straight 03/25/2018 1: 18 PM CDT documented as of this encounter Last Filed Vital Signs Vital Sign Reading Time Taken Comments Blood Pressure 122/76 11/04/2022 4:16 PM CDT Pulse 76 11/04/2022 3:57 PM CDT Temperature 36.3 ??C (97.3 ??F) 11/04/2022 3:57 PM CD T Respiratory Rate - - Oxygen Saturation - - Inhaled Oxygen Concentration - - Weight 88.9 kg (195 lb 15.8 oz) 11/04/2022 3:57 PM CDT Height 178.6 cm (5' 10.32) 11/04/2022 3:57 PM C DT Body Mass Index 27.87 11/04/2022 3:57 PM CDT documented in this encounter Progress Notes * Cristiana Fernandez P.A.-C. - 11/04/2022 4:00 PM CDT SUBJECTIVE CHIEF COMPLAINT/REASON FOR VISIT Pre-op Exam (Kevin CONWAY - Juan J 11/12/22). HISTORY OF PRESENT ILLNESS Suzi Rutledge is a 67 y.o. female who presents to the clinic today for a preoperative exam prior to right total knee arthroplasty on 11/12/[address] Arita at [facility]. There have been no prior complications or problems with anesthesia. There is no family medical history of problems with anesthesia or malignant hyperthermia. The patient has no known bleeding or clotting disorders. There are no problems with neck range of motion. The patient has been diagnosed with sleep apnea uses CPAP therapy. The patient does have diabetes type 2, last A1c 5.8% at outside facility February,. There are no sensitivities to tape or latex. No problems swallowing or current loose teeth. The patient does wear upper and lower removable dentures. The patient is on daily Eliquis 5 mg daily due to implantation of defibrillator and will discontinue per orthopedic recommendation prior totime of surgery. The patient does not routinely use NSAIDs. The patient admits to being a former smoker, smoking 1/2 pack daily and quitting 4 months ago. The patient is taking a beta gael. There is need for prophylactic antibiotics. The patient has functional limitation though no known cardiopulmonary problems walking 4 blocks or climbing 2 flights of stairs. Patient denies any recent illnessincluding cough, cold, or shortness of breath. REVIEW OF SYSTEMS Constitutional: - Negative for fatigue, fever and night sweats. Eyes: - Negative for visual problems and sudden loss of vision. Respiratory: - Negative for dry cough, shortness of breath and wheezing. Cardiovascular: Positive for rapid or fluttering heart beat. - Negative for chest pain, pressure or tightness. Gastrointestinal: - Negative for abdominal (belly) pain or cramping, constipation, diarrhea, nausea and vomiting. Genitourinary: - Negative for difficulty urinating, pain with urination, blood in urine and frequent urination. Neurological: - Negative for loss of consciousness, light-headedness, headaches and blackouts. The following portions of the patient's history were reviewed and updated as appropriate: allergies, current medications, family history, medical history, social history, surgical history and problemlist. OBJECTIVE VITAL SIGNS BP 122/76 Pulse 76 Temp 36.3 ??C (Temporal) Ht 178.6 cm Wt 88.9 kg BMI 27.87 kg/m?? PHYSICAL EXAMINATION General: Patient is alert and oriented, in no acute distress. Capable of full communication withoutdifficulty. Patient is polite and cooperative. Appropriately dressed and normal hygiene. Smells strongly of tobacco smoke. HEENT: Normocephalic, atraumatic. Pupils are equal, round and reactive to light. Auditory canals patent. Tympanic membranes are pearly lopez with adequate visualization of bony prominences. Nares are patent. Oropharynx without lesion of mucosa. Pharynx rises symmetrically without exudate. Upper and lower dentures removable. Mallampati II. Neck: No lymphadenopathy. No thyroid enlargement or nodules. No carotid bruit. Neck is supple with normal range of motion. Heart: Regular rate and rhythm. No murmurs, gallops or rubs noted. No S3, no S4. Lungs: Regular rate and rhythm of respirations. Clear to auscultation bilaterally. No wheezing or crackles. No accessory muscles of respiration noted. Abdomen: Nontender to palpation. No hepatosplenomegaly. No mass. Normal bowel sounds in all 4 quadrants. Musculoskeletal: Normal range of motion in all extremities. Extremities: No neurovascular compromise. No cyanosis or clubbing. No edema. Skin: No rashes or wounds. No evidence of excessive bruising. Neurologic: Cranial nerves 2-12 are grossly intact. Deep tendon reflexes are 2+ bilaterally in patellar tendons. Mental: Affect is normal. Thought process is congruent. Speech is fluent. ASSESSMENT / PLAN #1 Preoperative Exam #2 Primary Osteoarthritis Knee Right #3 Diabetes Mellitus Type 2 (HCC) - Primary Care - GLORIA consult (clinic) PLAN: Patient is felt to be medically stable and medically optimized for the above procedure. No contraindication to anesthesia. Known cardiopulmonary risk factors include recent tobacco use, cardiacdefibrillator implant though cleared by cardiology preoperatively, ventricular tachycardia and type2 diabetes. Functional capacity is >4 METS, ASA Class II. We reviewed medications to avoid taking prior to the procedure. The patient knows to be fasting after midnight the day of surgery. Furtherpreoperative and postoperative recommendations will be given prior to surgery by surgeon. Patient will followup as needed. Cristiana Fernandez P.A.-C. documented in this encounter Plan of Treatment Not on file documented as of this encounter Visit Diagnoses Diagnosis Preoperative Exam- Primary Primary Osteoarthritis Knee Right Diabetes Mellitus Type 2 (HCC) documented in this encounter Care Teams Budget Assistant Relationship Specialty Start Date End Date Elsewhere, Pcp PCP - General Internal Medicine 11/04/22 documented as of this encounter
--- OUTSIDE RECORDS SUMMARY | 2023-07-30 11:08 | XMS_ITS | Encounter Summary ---
Author Name Unknown Organization [facility] Address [address] [place] [address] Care Team Providers Care Hydraulic Pile Hammer Operator Name Role Phone Unavailable Primary Care Provider Unavailabl e Reason for Referral * Outpatient (Routine) - Authorized Specialty Diagnoses / Procedures Referred By Contac t Referred To Contact Diagnoses Pain Knee Left Pain Knee Right Procedures DX Hips and Pelvis Bilateral 5+ Views Rafa Brenner M.D. [address] [place] [phone] [facility] Referral ID Status Reason Start Date Expiration Date V isits Requested Visits Authorized [id number] Authorized 10/01/2022 10/01/2023 1 1 * Outpatient (Routine) - Authorized Specialty Diagnoses / Procedures Referred By Contac t Referred To Contact Diagnoses Pain Knee Left Pain Knee Right Procedures DX Hip to Ankle Standing Rafa Brenner M.D. [address] [place] [phone] [facility] Referral ID Status Reason Start Date Expiration Date V isits Requested Visits Authorized [id number] Authorized 10/01/2022 10/01/2023 1 1 * Outpatient (Routine) - Authorized Specialty Diagnoses / Procedures Referred By Contac t Referred To Contact Diagnoses Pain Knee Left Pain Knee Right Procedures DX Knee Bilateral 4+ Views Rafa Brenner M.D. [address] [place] [phone] [facility] Referral ID Status Reason Start Date Expiration Date V isits Requested Visits Authorized [id number] Authorized 10/01/2022 10/01/2023 1 1 Reason for Visit * Reason Onset Date Comments Appointment 10/01/2022 [place] [facility] Encounter Details Date Type Department Care Team (Latest Contact Info) Description 10/01/2022 Clinical Communication Department of Orthopedic Surgery in [place], [place] [address] [place] [phone] Rafa Brenner M.D. [address] [place] [phone] Appointment ([place] [facility]) Social History Tobacco Use Types Packs/Day Years [...] often do you attend chur ch or voodoo services? Never 09/21/2022 Do you belong to any clubs o r organizations such as cheondoism groups, unions, fraternal or athletic groups, or [...] care, and heating? Not very hard 09/21/2022 [facility] - Occupational [...] place to sleep or slept in a long-term (including now)? 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 Gender Identity Female 03/25/2018 1:18 PM CDT Sexual Orientation Straight 03/25/2018 1: 18 PM CDT documented as of this encounter Plan of Treatment Scheduled Orders Name Type Priority Associated Diagnoses Orde r Schedule DX Knee Bilateral 4+ Views Imaging RAD - Routine (most inpatients and all outpatients) Pain Knee Left Pain Knee Right Expected: 10/01/2022 (Approximate), Expires: 01/02/2024 DX Hip to Ankle Standing Imaging RAD - Routine (most inpatients and all outpatients) Pain Knee Left Pain Knee Right Expected: 10/01/2022 (Approximate), Expires: 01/02/2024 DX Hips and Pelvis Bilateral 5+ Views Imaging RAD - Routine (most inpatients and all outpatients) Pain Knee Left Pain Knee Right Expected: 10/01/2022 (Approximate), Expires: 01/02/2024 documented as of this encounter Visit Diagnoses Diagnosis Pain Knee Left- Primary Pain Knee Right documented in this encounter
--- OUTSIDE RECORDS SUMMARY | 2023-07-30 11:08 | XMS_ITS | Encounter Summary ---
Author Name Unknown Organization [facility] Address [address] [place] [address] Care Team Providers Care Tea Tree Farm Worker Name Role Phone Unavailable Primary Care Provider Unavailabl e Reason for Referral * Outpatient (Routine) - Incomplete Specialty Diagnoses / Procedures Referred By Contac t Referred To Contact Diagnoses Fracture Femur Closed Initial Right (HCC) Procedures suture removal Milton Mckeon P.A.-C. [address], [place] [phone] Referral ID Status Reason Start Date Expiration Date V isits Requested Visits Authorized [id number] Incomplete 09/24/2022 09/24/2023 1 1 CLE REPAIRMAN * Outpatient (Routine) - Closed Specialty Diagnoses / Procedures Referred By Contac t Referred To Contact Diagnoses Fracture Femur Closed Initial Right (HCC) Procedures DX Hip And Pelvis Right 2-3 Views Milton Mckeon P.A.-C. [address] [place] [phone] [facility] Region Referral ID Status Reason Start Date Expiration Date Visits Re quested Visits Authorized [id number] Closed 09/23/2022 09/23/2023 1 1 CLE REPAIRMAN Reason for Visit * Reason Comments Post-op ORIF femoral neck Follow-up ORIF femoral neck Fracture ORIF femoral neck * Appointment Request (Routine) - Closed Specialty Diagnoses / Procedures Referred By Inderjit brown Referred To Contact Orthopedic Surgery Lawrence Arita M.D. [address] [phone] Referral ID Status Reason Start Date Expiration Date Visits Re quested Visits Authorized [id number] Closed 09/17/2022 09/17/2023 1 1 Encounter Details Date Type Department Care Team (Late st Contact Info) Description 09/24/2022 2:30 PM BICYCLE REPAIRMAN Office Visit Department of Orthopedic Surgery in [place], [place] [address] [phone] Milton Mckeon P.A.-C. [address] [phone] Fracture Femur Closed Initial Right (HCC) (Primary Dx) Social History Tobacco Use Types [...] often do you attend chur ch or orthodox services? Never 09/21/2022 Do you belong to [...] care, and heating? Not very hard 09/21/2022 [facility] ional [facility] - Occupational [...] to sleep or slept in a senior living (including now)? No 09/21/2022 Nutrition Answer Date [...] Sex Assigned at Female 09/21/2022 2:32 PM BICYCLE REPAIRMAN Gender Identity Female 03/25/2018 1:18 PM CDT Sexual Orientation Straight 03/25/2018 1: 18 PM CDT documented as of this encounter Progress Notes * Milton Mckeon P.A.-C. - 09/24/2022 2:30 PM CST CHIEF COMPLAINT/REASON FOR VISIT Two week postop recheck of a right femoral neck fracture with closed reduction internal fixation with percutaneous screw fixation. SUBJECTIVE HISTORY OF PRESENT ILLNESS Suzi Rutledge is a very pleasant female who presents today for 2-week postop recheck of aright femoral neck fracture with closed reduction internal fixation performed by Dr. Arita on 09/10/2022. Reports that they are doing well. Denies any complications with the splint or sutures. Nofever, chills, night sweats, nausea, or vomiting. She is more bothered by knee pain at this time. She was supposed to undergo bilateral knee replacements in August. She is inquiring if Dr. Arita would be able to do her knee replacements. She is interested in having these done as soon as possible. OBJECTIVE PHYSICAL EXAMINATION Musculoskeletal examination of the right hip reveals a well-healing, well- approximated incision. This is clean, dry and intact without signs of infection. Neurovascularly intact distally. Capillary refill less than 2 seconds. Skin is benign with no signs of irritation from the splint. IMAGING X-rays of the hip were obtained today. IMPRESSION: Compared to 09/10/2022. There is screw fixation across a healing subcapital fracture of the right proximal femur. No change since the prior study. Joint space narrowing right hip with chondrocalcinosis. Instrumentation the lower lumbar spine. Degenerative changes both SI joints, greater on the right. Extensive vascular calcifications. Osteopenia. The HEIDY with acetabular reconstruction is unchanged. ASSESSMENT / PLAN IMPRESSION/REPORT/PLAN Two weeks status post right femoral neck closed reduction percutaneous screw fixation performed by Dr. Arita. PLAN: Patient is doing well. We did review her activity recommendations including gentle [id number] exercises. Partial weightbearing status until next visit. Patient will return to clinic in 4 weeks for [address] Arita. New x-rays will be obtained at that time. She would also like to talk to Dr. Arita about knee replacements at that time. She has quit smoking as of June 19, 2022. She would like to proceed with this as soon as possible after her [address] Arita. All questions were answered to her satisfaction. CLE REPAIRMAN documented in this encounter Procedure Notes * Justin Alonso - 09/24/2022 2:30 PM CSTAssociated Order(s): suture removal Post-Procedure Diagnose(s): Fracture Femur Closed Initial Right (HCC) Suture removal Performed by: Justin Alonso Authorized by: Milton Mckeon P.A.-C. PROCEDURE DETAILS Wound appearance: no signs of infection, good wound healing, clean and good approximation of wound edges Number of sutures removed: 5 CONSENT Consent obtained: verbal Consent given by: patient The benefits, risks and alternatives to the procedure and the potential need for sedation or anesthesia as well as the names, roles, and responsibilities of healthcare team members performing significant interventional tasks were discussed with the patient and/or decision maker. UNIVERSAL PROTOCOL All relevant documentation and testing were reviewed and available. All required blood products, implants, devices and or special equipment were made available as applicable. Pre-procedure verification was conducted and the correct site was marked if required. A fire risk assessment was done as applicable. The procedural time-out to verify correct patient, correct side/site, and procedure was conducted prior to performing the procedure and confirmed in a procedural pause. PRE PROCEDURE DETAILS Indication: scheduled suture removal Location: lower extremity Lower extremity location: hip Hip location: right hip SEDATION / ANESTHESIA Anesthesia method: none POST PROCEDURE DETAILS Procedure completed successfully: yes Complications: no immediate complications COMMENTS All sutures removed. Patient tolerated well. No concerns at this time. CLE REPAIRMAN documented in this encounter Plan of Treatment Not on file documented as of this encounter Procedures Procedure Name Priority Date/Time Associated Diagnosis Comments SUTURE REMOVAL Routine 09/24/2022 2:30 PM BICYCLE REPAIRMAN Fracture Femur Closed Initial Right (HCC) documented in this encounter Results * DX Hip And Pelvis Right 2-3 Views (09/24/2022 2:30 PM BICYCLE REPAIRMAN) Anatomical Region Laterality Modality Lower Extremity, Pelvis, Hip , Musculoskeletal RST LOS, Musculoskeletal ARZ LOS, Muskuloskeletal FLA LOS Right Digit al Radiography 09/24/2022 2:41 PM BICYCLE REPAIRMAN Impressions 09/24/2022 2:42 PM BICYCLE REPAIRMAN Compared to 09/10/2022. There is screw fixation across a healing subcapital fracture of the right proximal femur. No change since the prior study. Joint space narrowing right hip with chondrocalcinosis. Instrumentation the lower lumbar spine. Degenerative changes both SI joints, greater on the right. Extensive vascular calcifications. Osteopenia. The HEIDY with acetabular reconstruction is unchanged. Narrative 09/24/2022 2:42 PM BICYCLE REPAIRMAN EXAM: ??DX HIP AND PELVIS RIGHT 2-3 VIEWS Procedure Note Julieta Cedillo M.D. - 03/08/2023 EXAM: DX HIP AND PELVIS RIGHT 2-3 VIEWS IMPRESSION: Compared to 09/10/2022. There is screw fixation across a healingsubcapital fracture of the right proximal femur. No change since the prior study. Joint spacenarrowing right hip with chondrocalcinosis. Instrumentation the lower lumbar spine. Degenerativechanges both SI joints, greater on the right. Extensive vascular calcifications. Osteopenia. TheTHA with acetabular reconstruction is unchanged. Milton Mckeon P.A.-C. IMG DIAGNOSTIC I MAGING PROCEDURES * SUTURE REMOVAL (09/24/2022 2:30 PM BICYCLE REPAIRMAN) Narrative MMODAL - 09/24/2022 2:30 PM BICYCLE REPAIRMAN Justin Alonso ? 09/24/2022 ??3:27 PM Suture removal Performed by: Justin Alonso Authorized by: Milton Mckeon P.A.-C. PROCEDURE DETAILS Wound appearance: no signs of infection, good wound healing, clean and good approximation of wound edges Number of sutures removed: 5 CONSENT Consent obtained: verbal Consent given by: patient The benefits, risks and alternatives to the procedure and the potential need for sedation or anesthesia as well as the names, roles, and responsibilities of healthcare team members performing significant interventional tasks were discussed with the patient and/or decision maker. UNIVERSAL PROTOCOL All relevant documentation and testing were reviewed and available. All required blood products, implants, devices and or special equipment were made available as applicable. Pre-procedure verification was conducted and the correct site was marked if required. A fire risk assessment was done as applicable. The procedural time-out to verify correct patient, correct side/site, and procedure was conducted prior to performing the procedure and confirmed in a procedural pause. PRE PROCEDURE DETAILS Indication: scheduled suture removal ?? Location: lower extremity Lower extremity location: hip Hip location: right hip SEDATION / ANESTHESIA Anesthesia method: none POST PROCEDURE DETAILS Procedure completed successfully: yes ?? Complications: no immediate complications ?? COMMENTS All sutures removed. Patient tolerated well. No concerns at this time. Milton Mckeon P.A.-C. PROCEDURE/MINOR SURGICAL ORDERABLES MMODAL NA documented in this encounter Visit Diagnoses Diagnosis Fracture Femur Closed Initial Right (HCC)- Primary Fracture Femur Closed Initial Right (HCC) documented in this encounter
--- OUTSIDE RECORDS SUMMARY | 2023-07-30 11:08 | XMS_ITS | Encounter Summary ---
Author Name Unknown Organization [facility] Address [address] [place] [address] Care Team Providers Care High School Band Director Name Role Phone Elsewhere, Pcp Primary Care Provider Unavailabl e Reason for Visit * Reason Onset Date Comments SURGERY DATE 11/26/2022 Encounter Details Date Type Department Care Team (Late st Contact Info) Description 11/26/2022 Clinical Communication Department of Orthopedic Surgery in [place], [place] [address] [phone] Lawrence Arita M.D. [address] [phone] SURGERY DATE Social History Tobacco [...] often do you attend chur ch or hoahaoism services? Never 09/21/2022 Do you belong to any clubs o r organizations such as worship groups, unions, fraternal or athletic groups, or [...] Answer Date Recorded PHQ-2 Score 2 11/01/2022 [facility] Stress Questionnaire Answer [...] your living situation today? I have a [facility] place to live 12/12/2022 Education Answer Date Recorded What is the highest level of school you have completed or the highest degree you have received? Associate degree: occupational, technical, or vocational program 09/21/2022 Sex and Gender Information Value Date Recorded Sex Assigned at Female 09/21/2022 2:32 PM WELDER Gender Identity Female 03/25/2018 1:18 PM CDT Sexual Orientation Straight 03/25/2018 1: 18 PM CDT documented as of this encounter Plan of Treatment Not on file documented as of this encounter Visit Diagnoses Not on filedocumented in this encounter Care Teams High School Band Director Relationship Specialty Start Date End Date Elsewhere, Pcp PCP - General Internal Medicine 11/04/22 documented as of this encounter
--- OUTSIDE RECORDS SUMMARY | 2023-07-30 11:09 | XMS_ITS | Encounter Summary ---
Author Name Unknown Organization [facility] Address [address] [place] [address] Care Team Providers Care Highway Truck Driver Name Role Phone Unavailable Primary Care Provider Unavailabl e Reason for Referral * Outpatient (Routine) - Closed Specialty Diagnoses / Procedures Referred By Contac t Referred To Contact Diagnoses Open Reduction Internal Fixation Hip Status Post Procedures DX Hip And Pelvis Right 2-3 Views Lawrence Arita M.D. [address] [place] [phone] [facility] Region Referral ID Status Reason Start Date Expiration Date Visits Re quested Visits Authorized [id number] Closed 09/10/2022 09/10/2023 1 1 TROMECHANICAL ENGINEER Reason for Visit * Outpatient (Routine) - Closed Specialty Diagnoses / Procedures Referred By Contac t Referred To Contact Diagnoses Open Reduction Internal Fixation Hip Status Post Procedures DX Hip And Pelvis Right 2-3 Views Lawrence Arita M.D. [address] [place] [phone] [facility] Region Referral ID Status Reason Start Date Expiration Date Visits Re quested Visits Authorized [id number] Closed 09/10/2022 09/10/2023 1 1 Encounter Details Date Type Department Care Team (Latest Contact Info) Description 09/10/2022 3:15 PM ELECTROMECHANICAL ENGINEER - 09/10/2022 11:59 PM ELECTROMECHANICAL ENGINEER Hospital Encounter Department of Radiology in [place], [place] [address] [place] [address] Lawrence Arita M.D. [address] [place] [address] Open Reduction Internal Fixation Hip Status Post Discharge Disposition: Home or Self Care Social History Tobacco Use Types Packs/Day Years Used Date Smoking Tobacco: Some Days Cigarettes 0.5 Started: 1970 Smokeless Tobacco: Never Alcohol Use Standard Drinks/Week Comments Not Currently 0 (1 standard drink = 0.6 oz pur e alcohol) Nutrition Answer Date Recorded Nutrition: EVOO Fat Source Unknown 09/08 Nutrition: Servings of Fruits/Vegetables per Day Not on file 09/08/2020 Dental Answer Date Recorded Dental: Regular Dentist Unknown 09/08/19 21 Sex and Gender Information Value Date Recorded Sex Assigned at Female 09/21/2022 2:32 PM ELECTROMECHANICAL ENGINEER Gender Identity Female 03/25/2018 1:18 PM CDT [...] 10/03/2010 11/04/2022 calcium carb/Mgox/vit D2/biofl (CALCIUM CARB-VIT [id number] ORAL) Take 1 tablet by mouth 2 [...] tablet by mouth daily. 0 10/03/2010 11/04/2022 [id number]-[id number]-TG (CORTISPORIN) 3.5-10,000-1 mg/mL-unit/mL-% otic solution 0 07/31/2022 [...] AND PELVIS RIGHT 2-3 VIEWS RAD - Semiurgent (Fast; most ED patients; some inpatients) 09/10/2022 3:37 PM ELECTROMECHANICAL ENGINEER Open Reduction Internal Fixation Hip Status Post documented in this encounter Results * DX Hip And Pelvis Right 2-3 Views (09/10/2022 3:37 PM ELECTROMECHANICAL ENGINEER) Anatomical Region Laterality Modality Lower Extremity, Pelvis, Hip , Musculoskeletal RST LOS, Musculoskeletal ARZ LOS, Muskuloskeletal FLA LOS Right Digit al Radiography 09/10/2022 3:37 PM ELECTROMECHANICAL ENGINEER Impressions 09/10/2022 3:40 PM ELECTROMECHANICAL ENGINEER ORIF of nondisplaced right femoral neck fracture. Narrative 09/10/2022 3:40 PM ELECTROMECHANICAL ENGINEER EXAM: DX HIP AND PELVIS RIGHT 2-3 VIEWS COMPARISON: 09/09/2022. FINDINGS: There has been ORIF of the nondisplaced right femoral neck fracture with [address] with the tips in good position within the femoral head cortex. No additional fractures identified. There is some mild degenerative osteoarthritis of the right hip. Left total hip arthroplasty is unremarkable. There is degenerative spurring and sclerosis along the sacroiliac joints bilaterally. There has been bilateral spinal rodding and fusion surgery in the lower lumbar spine and lumbosacral junction. Procedure Note Joel Francois Jr., M.D. - 09/10/2022 EXAM: DX HIP AND PELVIS RIGHT 2-3 VIEWS COMPARISON: 09/09/2022. FINDINGS: There has been ORIF of the nondisplaced right femoral neckfracture with [address] with the tips in good position within the femoral headcortex. No additional fractures identified. There is some mild degenerative osteoarthritis ofthe right hip. Left total hip arthroplasty is unremarkable. There is degenerative spurring andsclerosis along the sacroiliac joints bilaterally. There has been bilateral spinal rodding and fusionsurgery in the lower lumbar spine and lumbosacral junction. IMPRESSION: ORIF of nondisplaced right femoral neck fracture. Lawrence Arita M.D. IMG DIAGNOSTIC IM AGING PROCEDURES documented in this encounter Visit Diagnoses Diagnosis Open Reduction Internal Fixation Hip Status Post documented in this encounter
--- OUTSIDE RECORDS SUMMARY | 2023-07-30 11:09 | XMS_ITS | Encounter Summary ---
Author Name Unknown Organization [facility] Address [address] [place] [address] Care Team Providers Care Claim Trainee Name Role Phone Unavailable Primary Care Provider Unavailabl e Reason for Visit * Reason Comments Fall Encounter Details Date Type Department Care Team (Late st Contact Info) Description 09/09/2022 6:36 PM STUDIO HAND - 09/10/2022 7:43 AM [facility] Emergency [facility] [address] [place] [address] Discharge Disposition: Home or Self Care Social [...] Sex Assigned at Female 09/21/2022 2:32 PM STUDIO HAND Gender Identity Female 03/25/2018 1:18 PM CDT [...] 10/03/2010 11/04/2022 calcium carb/Mgox/vit D2/biofl (CALCIUM CARB-VIT [id number] ORAL) Take 1 tablet by mouth 2 [...] tablet by mouth daily. 0 10/03/2010 11/04/2022 [id number]-rllmxkmgk-GZ (CORTISPORIN) 3.5-10,000-1 mg/mL-unit/mL-% otic solution 0 07/31/2022 [...] Name Priority Date/Time Associated Diagnosis Comments CT PELVIS WITHOUT IV CONTRAST RAD - Semiurgent (Fast; most ED patients; some inpatients) 09/09/2022 7:[address] CERVICAL SPINE WITHOUT IV CONTRAST RAD - Semiurgent (Fast; most ED patients; some inpatients) 09/09/2022 7:[address] HEAD WITHOUT IV CONTRAST RAD - Semiurgent (Fast; most ED patients; some inpatients) 09/09/2022 7:43 PM STUDIO HAND DX FEMUR RIGHT 2+ VIEWS RAD - Semiurgent (Fast; most ED patients; some inpatients) 09/09/2022 7:41 PM STUDIO HAND documented in this encounter Results * CT Pelvis without IV Contrast (09/09/2022 7:55 PM STUDIO HAND) Anatomical Region Laterality Modality Pelvis, Abdominal RST LOS, A bdominal ARZ LOS, Abdominal FLA LOS, Musculoskeletal ARZ LOS, Musculoskeletal RST LOS N/A Computed Tomography 09/09/2022 8:13 PM STUDIO HAND Impressions 09/09/2022 8:17 PM STUDIO HAND 1. Acute nondisplaced basicervical fracture of the right femoral neck. 2. Soft tissue contusion overlying the left greater tuberosity, partially visualized. Narrative 09/09/2022 8:17 PM STUDIO HAND EXAM: CT PELVIS WITHOUT IV CONTRAST COMPARISON: None FINDINGS: Acute nondisplaced basicervical fracture through the right femoral neck. Postoperative changes of L4-S1 posterior instrumented fusion with decompressive laminectomies at L4 and L5. Left HEIDY. Healed right iliac osteotomy. Scattered pelvic enthesophytes. Diffuse calcified atherosclerotic disease. Scattered colonic diverticulosis. Hysterectomy. Diffuse inflammatory stranding overlying the left greater tuberosity. Procedure Note Gumaro Lopez M.D. - 09/09/2022 EXAM: CT PELVIS WITHOUT IV CONTRAST COMPARISON: None FINDINGS: Acute nondisplaced basicervical fracture through the rightfemoral neck. Postoperative changes of L4-S1 posterior instrumented fusion with decompressivelaminectomies at L4 and L5. Left HEIDY. Healed right iliac osteotomy. Scattered pelvic enthesophytes. Diffusecalcified atherosclerotic disease. Scattered colonic diverticulosis. Hysterectomy. Diffuseinflammatory stranding overlying the left greater tuberosity. IMPRESSION: 1. Acute nondisplaced basicervical fracture of the right femoral neck. 2. Soft tissue contusion overlying the left greater tuberosity, partiallyvisualized. Khai Anguiano APRN, C.N.P., M.S.N. IMG C T PROCEDURES * CT Cervical Spine without IV Contrast (09/09/2022 7:43 PM STUDIO HAND) Anatomical Region Laterality Modality Cervical Spine, Neuroradiolo gy [facility], Neuroradiology [facility], [facility] N/A Computed Tomography 09/09/2022 7:43 PM STUDIO HAND Impressions 09/09/2022 7:52 PM STUDIO HAND No acute traumatic findings in the cervical spine. Narrative 09/09/2022 7:52 PM STUDIO HAND EXAM: CT CERVICAL SPINE WITHOUT IV CONTRAST COMPARISON: None FINDINGS: No acute fracture or traumatic malalignment. Diffuse degenerative disc space narrowing. Grade 1 anterolisthesis of C4 on C5. Marked disc space narrowing at C5-6. Posterior disc osteophyte complex at C5-6 results in mild to moderate spinal canal stenosis and severe bilateral neural foraminal stenosis. Moderate to severe neural foraminal stenosis on the right at C4-5. No soft tissue injury. Carotid artery calcifications. The lung apices are clear. Procedure Note Gumaro Lopez M.D. - 09/09/2022 EXAM: CT CERVICAL SPINE WITHOUT IV CONTRAST COMPARISON: None FINDINGS: No acute fracture or traumatic malalignment. Diffusedegenerative disc space narrowing. Grade 1 anterolisthesis of C4 on C5. Marked disc space narrowing at C5- 6.Posterior disc osteophyte complex at C5-6 results in mild to moderate spinal canal stenosis andsevere bilateral neural foraminal stenosis. Moderate to severe neural foraminal stenosis on theright at C4-5. No soft tissue injury. Carotid artery calcifications. The lung apices are clear. IMPRESSION: No acute traumatic findings in the cervical spine. Khai Anguiano APRN, C.N.P., M.S.N. IMG C T PROCEDURES * CT Head without IV Contrast (09/09/2022 7:43 PM STUDIO HAND) Anatomical Region Laterality Modality Head, Neuroradiology RST LOS , Neuroradiology ARZ LOS, Neuroradiology FLA LOS N/A Computed Tomography 09/09/2022 7:41 PM STUDIO HAND Impressions 09/09/2022 7:50 PM STUDIO HAND No acute intracranial findings. Narrative 09/09/2022 7:50 PM STUDIO HAND EXAM: CT HEAD WITHOUT IV CONTRAST COMPARISON: None FINDINGS: No intracranial hemorrhage, mass effect or acute infarct. No extra- axial fluid collections or hydrocephalus. Maintained lopez-white differentiation. The basilar cisterns are widely patent. Scattered intracranial vascular calcifications. No soft tissue injury or acute fractures. Hypoplastic right maxillary sinus. Opacification of a few right-sided mastoid air cells. The remainder the paranasal sinuses and mastoid air cells are well-aerated. Negative orbits. Procedure Note Gumaro Lopez M.D. - 09/09/2022 EXAM: CT HEAD WITHOUT IV CONTRAST COMPARISON: None FINDINGS: No intracranial hemorrhage, mass effect or acute infarct. Noextra- axial fluid collections or hydrocephalus. Maintained lopez-white differentiation. The basilarcisterns are widely patent. Scattered intracranial vascular calcifications. No soft tissue injury oracute fractures. Hypoplastic right maxillary sinus. Opacification of a few right-sidedmastoid air cells. The remainder the paranasal sinuses and mastoid air cells are well-aerated.Negative orbits. IMPRESSION: No acute intracranial findings. Korina Contreras APRN.N.PJohn, M.S.N. IMG C T PROCEDURES * DX Femur Right 2+ Views (09/09/2022 7:41 PM STUDIO HAND) Anatomical Region Laterality Modality Lower Extremity, Femur, Musc uloskeletal RST LOS, Musculoskeletal ARZ LOS, Muskuloskeletal FLA LOS Right Digit al Radiography 09/09/2022 7:47 PM STUDIO HAND Impressions 09/09/2022 7:48 PM STUDIO HAND Evaluation somewhat limited due to limitations in patient positioning. No definite acute fractures of the right femoral neck. Advanced degenerative arthritis of the right knee. Scattered arterial calcifications. Partially visualized posterior fusion lumbar spine. Narrative 09/09/2022 7:48 PM STUDIO HAND EXAM: DX FEMUR RIGHT 2+ VIEWS Procedure Note Gumaro Lopez M.D. - 09/09/2022 EXAM: DX FEMUR RIGHT 2+ VIEWS IMPRESSION: Evaluation somewhat limited due to limitations in patient positioning. Nodefinite acute fractures of the right femoral neck. Advanced degenerative arthritis ofthe right knee. Scattered arterial calcifications. Partially visualized posterior fusion lumbarspine. Korina Contreras APRN.N.P., M.S.N. IMG D IAGNOSTIC IMAGING PROCEDURES documented in this encounter Visit Diagnoses Not on filedocumented in this encounter
--- OUTSIDE RECORDS SUMMARY | 2023-07-30 11:09 | XMS_ITS | Encounter Summary ---
Author Name Unknown Organization [facility] Address [address] [place] [address] Care Team Providers Care Manufacturing Mechanic Name Role Phone Unavailable Primary Care Provider Unavailabl e Reason for Visit * Reason Comments Neck Pain Encounter Details Date Type Department Care Team (Late st Contact Info) Description 09/09/2022 12:00 PM ABLE BODIED WATCHMAN - 09/09/2022 11:00 PM [facility] Emergency [facility] [address] [place] [address] Pain Neck (Primary Dx) Discharge Disposition: Home or Self Care Social [...] Date Recorded Dental: Regular Dentist Unknown 09/08/19 Sex and Gender Information Value Date Recorded Sex Assigned at Female 09/21/2022 2:32 PM ABLE BODIED WATCHMAN Gender Identity Female 03/25/2018 1:18 PM CDT [...] 10/03/2010 11/04/2022 calcium carb/Mgox/vit D2/biofl (CALCIUM CARB-VIT [id number] ORAL) Take 1 tablet by mouth 2 [...] tablet by mouth daily. 0 10/03/2010 11/04/2022 [id number]-zrgtnwuii-SR (CORTISPORIN) 3.5-10,000-1 mg/mL-unit/mL-% otic solution 0 07/31/2022 [...] of this encounter Visit Diagnoses Diagnosis Pain Neck- Primary documented in this encounter
--- OUTSIDE RECORDS SUMMARY | 2023-07-30 11:09 | XMS_ITS | Encounter Summary ---
Author Name Unknown Organization [facility] Address [address] [place] [address] Care Team Providers Care Manager Integrated Name Role Phone Unavailable Primary Care Provider Unavailabl e Encounter Details Date Type Department Care Team (Latest Contact Info) Description 09/09/2022 4:00 AM ELECTRICAL LINE SPLICER - 09/09/2022 11:59 PM ELECTRICAL LINE SPLICER Hospital Encounter Department of Cardiovascular Diseases in [place], [place] [address] [place] [address] Tomasz Barkley M.D., Ph.D. [address] [place] [phone] Aftercare Cardiac Defibrillator Discharge Disposition: Home or [...] Sex Assigned at Female 09/21/2022 2:32 PM ELECTRICAL LINE SPLICER Gender Identity Female 03/25/2018 1:18 PM CDT [...] 10/03/2010 11/04/2022 calcium carb/Mgox/vit D2/biofl (CALCIUM CARB-VIT F7-[id number] ORAL) Take 1 tablet by mouth 2 [...] tablet by mouth daily. 0 10/03/2010 11/04/2022 pbjsuysj-dfhlvryri-BX (CORTISPORIN) 3.5-10,000-1 mg/mL-unit/mL-% otic solution 0 07/31/2022 [...] Diagnosis Comments ICD REMOTE FOLLOW UP Routine 09/09/2022 3:14 PM ELECTRICAL LINE SPLICER Aftercare Cardiac Defibrillator documented in this encounter Results * ICD REMOTE FOLLOW UP (09/09/2022 3:14 PM ELECTRICAL LINE SPLICER) Date Time Interrogation Session [id number] [facility] Implantable Pulse Generator Tobacco Sample Puller Ditto Labs [facility] Implantable Pulse Generator Model D153 DYNAGEN [facility] Implantable Pulse Generator Serial Number [id number] [facility] Type Interrogation Session Remote [facility] Clinic Name [facility] Implantable Pulse Generator Type Defibrillator [facility] Implantable Pulse Generator Implant Date [id number] [facility] Implantable Lead Tobacco Sample Puller Guidant [facility] Implantable Lead Model 0185 [place] G [facility] Implantable Lead Serial Number [id number] [facility] Implantable Lead Implant Date [id number] [facility] Implantable Lead Polarity Type Tripolar Lead [facility] Implantable Lead Location Detail 1 Endocardial [facility] Implantable Lead Special Function Lead length: 64 cm [facility] Implantable Lead Location Right Ventricle [facility] Implantable Lead Tobacco Sample Puller Guidant [facility] Implantable Lead Model 4087 Flextend [facility] Implantable Lead Serial Number [id number] [facility] Implantable Lead Implant [...] Hernandez Setting [place] Delay Low 300 ms [facility] Hernandez Setting PAV Delay Low 300 ms [facility] Hernandez Setting PAV Delay High 200 ms [facility] Hernandez Setting [place] Delay High 200 ms [facility] Hernandez Setting [...] Amplitude 2.0 V [facility] Zone Setting Type Category VF [facility] Zone Setting Detection Interval 273 ms [facility] Zone Setting Type Category VT [facility] Zone Setting Detection Interval 353 ms [facility] Lead Channel Impedance Value 507 ohm [facility] Lead Channel Pacing Threshold Amplitude 1.0 V [facility] Lead Channel Pacing Threshold Pulse Width 0.4 ms [facility] Lead Channel Impedance Value 405 ohm [facility] Lead Channel Pacing Threshold Amplitude 1.0 V [facility] Lead Channel Pacing Threshold Pulse Width 0.4 ms [facility] Battery Date Time of Measurements [facility] Battery Status Beginning of Service [facility] Battery Remaining Longevity 126 mo [facility] Battery Remaining Percentage 100 % [facility] Capacitor Charge Type Reformation [facility] Capacitor Last Charge Date Time [facility] Capacitor Charge Time 10.6 s [facility] Hernandez Statistic Date Time Start [facility] Hernandez Statistic Date Time End [facility] Hernandez Statistic RA Percent Paced 0 % [facility] Hernandez Statistic RV Percent Paced 0 % [facility] Atrial Tachy Statistic Date Time Start [facility] Atrial Tachy Statistic Date Time End [facility] Atrial Tachy Statistic AT/AF [place] Percent 1 % [facility] Therapy [...] SYSTEM Episode Statistic Recent Date Time End [id number] [facility] Episode Type Category Periodic EGM [facility] Episode Date Time [id number] [facility] Episode Type Category AT/AF [facility] Episode Date Time [id number] [facility] Episode Duration 8 s [facility] Anatomical Region Laterality Modality Other 09/09/2022 3:11 AM ELECTRICAL LINE SPLICER Narrative 09/10/2022 9:01 AM ELECTRICAL LINE SPLICER PURPOSE OF VISIT: ??Routine remote transmission. PRESENTING EGM: ??Sinus rhythm at 80 bpm. ATRIAL ARRHYTHMIAS: ?09/01/2022: 6 seconds of atrial flutter. VENTRICULAR ARRHYTHMIAS: ?No new events. BATTERY LONGEVITY: Expected battery longevity trends reviewed and are stable and consistent with device settings and use. SUMMARY: All device function appears normal. FOLLOW UP: Next routine follow-up will be in 3 months via Latitude transmission. DEVICE RN: Neil Rosario RN Provider statement: This patient underwent device interrogation. I agree that the device interrogation was medically indicated to provide appropriate care and continue routine device interrogations as indicated. Tomasz Barkley M.D., Ph.D. CV IMPLANTABLE C ARDIAC DEVICE documented in this encounter Visit Diagnoses Diagnosis Aftercare Cardiac Defibrillator documented in this encounter
--- OUTSIDE RECORDS SUMMARY | 2023-07-30 11:09 | XMS_ITS | Encounter Summary ---
Author Name Unknown Organization [facility] Address [address] [place] [address] Care Team Providers Care Technical Project Coordinator Name Role Phone Unavailable Primary Care Provider Unavailabl e Reason for Referral * Outpatient (Routine) - Closed Specialty Diagnoses / Procedures Referred By Contac t Referred To Contact Diagnoses Open Reduction Internal Fixation Hip Status Post Procedures [place] Fluoro Less Than 1 Hour Lawrence Arita M.D. [address] [phone] [facility] Referral ID Status Reason Start Date Expiration Date Visits Re quested Visits Authorized [id number] Closed 09/10/2022 09/10/2023 1 1 AINABILITY OFFICER Reason for Visit * Outpatient (Routine) - Closed Specialty Diagnoses / Procedures Referred By Contac t Referred To Contact Diagnoses Open Reduction Internal Fixation Hip Status Post Procedures [place] Fluoro Less Than 1 Hour Lawrence Arita M.D. [address] [phone] [facility] Referral ID Status Reason Start Date Expiration Date Visits Re quested Visits Authorized [id number] Closed 09/10/2022 09/10/2023 1 1 Encounter Details Date Type Department Care Team (Latest Contact Info) Description 09/10/2022 7:47 AM SUSTAINABILITY OFFICER - 09/10/2022 3:14 PM SUSTAINABILITY OFFICER Hospital Encounter Department of Radiology in [place], [place] [address] [place] [address] Lawrence Arita M.D. [address] [place] [phone] Open Reduction Internal Fixation Hip Status Post [...] Sex Assigned at Female 09/21/2022 2:32 PM SUSTAINABILITY OFFICER Gender Identity Female 03/25/2018 1:18 PM CDT [...] 10/03/2010 11/04/2022 calcium carb/Mgox/vit D2/biofl (CALCIUM CARB-VIT [id number] ORAL) Take 1 tablet by mouth 2 [...] tablet by mouth daily. 0 10/03/2010 11/04/2022 jurtxgaf-lfyigzdmm-EM (CORTISPORIN) 3.5-10,000-1 mg/mL-unit/mL-% otic solution 0 07/31/2022 [...] Procedure Name Priority Date/Time Associated Diagnosis Comments [place] FLUORO LESS THAN 1 HOUR RAD - Semiurgent (Fast; most ED patients; some inpatients) 09/10/2022 2:58 PM SUSTAINABILITY OFFICER Open Reduction Internal Fixation Hip Status Post documented in this encounter Results * FL Fluoro Less Than 1 Hour (09/10/2022 2:58 PM SUSTAINABILITY OFFICER) Narrative [address] SEMN - 09/10/2022 2:58 PM SUSTAINABILITY OFFICER This exam does not require a radiologist review or interpretation. Please refer to the patient's medical record on this date for clinical details. Lawrence REMY FLUOROSCOPY P ROCEDURES [address] [facility] SEMN documented in this encounter Visit Diagnoses Diagnosis Open Reduction Internal Fixation Hip Status Post documented in this encounter
--- OUTSIDE RECORDS SUMMARY | 2023-07-30 11:09 | XMS_ITS | Encounter Summary ---
Author Name Unknown Organization [facility] Address [address] [place] [address] Care Team Providers Care Steward/Stewardess Smoke Room Name Role Phone Unavailable Primary Care Provider Unavailabl e Encounter Details Date Type Department Care Team (Late st Contact Info) Description 09/01/2022 Clinical Communication Department of Orthopedic Surgery in [place], [place] [address] [place] [address] Prescheduling, Provider Social History Tobacco Use Types Packs/Day Years [...] Sex Assigned at Female 09/21/2022 2:32 PM YEAST DISTILLER Gender Identity Female 03/25/2018 1:18 PM CDT Sexual Orientation Straight 03/25/2018 1: 18 PM CDT documented as of this encounter Miscellaneous Notes * Telephone Encounter - Darlene Monique - 09/01/2022 10:26 AM CST ORTHO HIP/KNEE PRE-SCHEDULING QUESTION T DISTILLER documented in this encounter Plan of Treatment Not on file documented as of this encounter Visit Diagnoses Not on filedocumented in this encounter
== END 2023-07-27 15:11 | disposition home or self-care (01) ==
LOC: NFLDREF 07-30 10:59
PROVIDERS: PCP Family Medicine; Referring Provider Family Medicine; Visit Provider Family Medicine
DX: E11.9 Type 2 diabetes mellitus without complications (principal)
CPT/HCPCS: 80053; 80061; 82043; 82570

== ENCOUNTER 2023-09-23 14:50 | Outpatient (CLI) | payer MEDICARE, SELFPAY ==
--- NOTE | 2023-09-23 15:00 | XR_ITS ---
Patient: MARNI ROCA Facility:?[facility] Patient ID:?[id number] Site Patient ID:?[id number]. Site :?[id number] Study:?DEXA-Bone Density RT FOREARM/ LT FOREARM-09/23/2023 3:18:24 PM Ordering Physician:OSMIN Final Report: DXA BONE MINERAL DENSITY STUDY Current height (in): 70.5. Weight (lb): 183.0. Menopause age: 49. Ethnicity: White. Reason for exam: Osteopenia. 1. Have you had a previous hip or vertebral fracture? Yes. 2. Have you had any fractures during your adult life which did not result from significant trauma (e.g., auto accident)? Yes. 3. Did either of your parents have a hip fracture? No. 4. Do you smoke? Yes. 5. Have you ever taken Glucocorticoids? No. 6. Do you have rheumatoid arthritis? No. 7. Do you have secondary osteoporosis? No. 8. Do you drink 3 or more alcoholic drinks per day? No. 9. Are you being treated for osteoporosis? No. 10. Have you ever taken any of the following medications: Actonel, Evista, Fosamax, Miacalcin, Reclast, Boniva, Forteo, HRT (i.e. estrogen/hormone therapy), Protelos, Prolia, Vitamin D, Calcium, other ? please specify. ANSWER: Yes, vitamin D, calcium. 11. Do you have any of the following medical conditions: Anorexia or bulimia, asthma or emphysema, end stage renal disease, hyperparathyroidism, any seizure disorders, cancer, inflammatory bowel diseases, hysterectomy, other ? please specify. ANSWER: Yes, hysterectomy. 12. What was your maximum height (inches)? 72. 13. Do you perform weight bearing exercise regularly? No. 14. Do you regularly consume dairy products? No. 15. Do you drink caffeinated beverages? Yes. 16. At what age did your period start? 13. 17. Are you premenopausal? No. 18. How many full term pregnancies have you had? 2. 19. Have you ever missed your period for more than 6 months in a row (not including or menopause)? No. TECHNIQUE: Bone mineral density study was performed using the [employer]. FINDINGS: The results of the study expressed as bone mineral density (BMD) are as follows: Radius: Right 33%: BMD: 0.0.665 g/cm2. T-score: -0.5. Z-score: 1.5. Radius: Left 33%: BMD: 0.668 g/cm2. T-score: -0.4. Z-score: 1.5. IMPRESSION: Normal bone density. Amena Desir M.D. Body/Diagnostic Radiologist [email or web address]: D& Transcribed: 11:40 am DW/Dictated by: Amena Desir MD @ 09/24/2023 2:34:00 AM ABHILASH/Dictated by: Amena Desir MD @ 09/24/2023 2:34:00 AM DW/Dictated by: Amena Desir MD @ 09/24/2023 2:34:00 AM Signed by:Juan M Desir MD @09/25/2023 10:30:31 PM (Electronic Signature)
== END 2023-09-23 14:51 | disposition home or self-care (01) ==
LOC: RAD 14:51
PROVIDERS: PCP Family Medicine; Visit Provider Family Medicine
DX: M85.80 Other specified disorders of bone density and structure, unspecified site (principal)
CPT/HCPCS: 77080

== ENCOUNTER 2024-08-15 15:35 | Outpatient (CLI) | payer MEDICARE, SELFPAY | END 2024-08-15 15:36 | disposition home or self-care (01) | LOC: NFLDREF 08-22 01:09 | PROVIDERS: PCP Family Medicine; Referring Provider Family Medicine; Visit Provider Family Medicine | DX: I10 Essential (primary) hypertension (principal); E78.5 Hyperlipidemia, unspecified; E11.9 Type 2 diabetes mellitus without complications; M54.50 Low back pain, unspecified; F17.200 Nicotine dependence, unspecified, uncomplicated; Q21.10 Atrial septal defect, unspecified; F32.A Depression, unspecified | CPT/HCPCS: 80053; 80061; 82043; 82570 ==